=== PATIENT | male | born 1950 | race Caucasian/White ===

== ENCOUNTER → 2024-03-03 09:09 | Outpatient (REF) | payer MEDICARE, OTHER, SELFPAY | LOC: HWRCS 09:09 | PROVIDERS: ATTENDING PHYSICIAN Internal Medicine Cardiovascular Disease; FAMILY PHYSICIAN Family Medicine | DX: Z95.1 Presence of aortocoronary bypass graft (principal); Z01.818 Encounter for other preprocedural examination; I25.10 Atherosclerotic heart disease of native coronary artery without angina pectoris; I10 Essential (primary) hypertension; Z86.73 Personal history of transient ischemic attack (TIA), and cerebral infarction without residual deficits; I77.9 Disorder of arteries and arterioles, unspecified; E78.2 Mixed hyperlipidemia | CPT/HCPCS: 93306 ==

== ENCOUNTER → 2024-03-30 11:07 | Outpatient (REF) | payer MEDICARE, OTHER, SELFPAY | LOC: RAD 11:07 | PROVIDERS: ATTENDING PHYSICIAN Physician Assistant; FAMILY PHYSICIAN Family Medicine | DX: I65.23 Occlusion and stenosis of bilateral carotid arteries (principal) | CPT/HCPCS: 93880 ==

== ENCOUNTER 2024-09-01 13:41 | Emergency (ER) | payer MEDICARE, OTHER, SELFPAY ==
[2024-09-01 13:46] LABS: Glucose - Point of Care 117 mg/dl (70-99)
[2024-09-01 13:48] VITALS: BP 119/76
[2024-09-01 14:04] LABS: % Basophils 0.7 % (0-2); % Eosinophils 0.6 % (0-6); % Immature Granulocytes 0.3 % (0-0.5); % Lymphocytes 24.1 % (20.5-51.1); % Monocytes 7.7 % (1.7-9.3); % Neutrophils 66.6 % (42.2-75.2); Absolute Basophils 0.1 10^3/uL (0-0.2); Absolute Lymphocytes 1.6 10^3/uL (1.2-3.4); Absolute Monocytes 0.5 10^3/uL (0.1-0.6); Absolute Neutrophils 4.5 10^3/uL (1.4-6.5); Hematocrit 37.6 % (39.0-52.0); Hemoglobin 13.3 g/dL (13.0-18.0); Mean Corp Hgb Conc. 35.4 g/dL (33.0-37.0); Mean Corpuscular Volume 93.3 fL (80.0-94.0); Mean Platelet Volume 9.4 fL (7.4-10.4); Nucleated Red Blood Cells % 0 % (-); Platelet Count 251 10^3/uL (130-400); Red Blood Cell Count 4.03 10^6/uL (4.70-6.10); White Blood Cell Count 6.8 10^3/uL (4.8-10.8)
[2024-09-01 15:19] LABS: ALT (SGPT) 15 U/L (0-50); AST (SGOT) 27 U/L (17-59); Albumin 4.1 g/dl (3.5-5.0); Alkaline Phosphatase 82 U/L (38-126); Blood Urea Nitrogen 18 mg/dl (9-20); Calcium 9.4 mg/dl (8.4-10.2); Carbon Dioxide 27 mmol/L (22-30); Chloride 103 mmol/L (98-107); Glucose 117 mg/dl (70-99); Potassium 4.4 mmol/L (3.5-5.1); Sodium 142 mmol/L (135-145); Total Bilirubin 0.7 mg/dl (0.2-1.3); Total Protein 7.1 g/dl (6.3-8.2); eGFR > 60.00
[2024-09-01 16:21] VITALS: BP 115/85
[2024-09-01 16:31] VITALS: BP 115/85
--- NOTE | 2024-09-01 16:47 | ED.CVA ---
History of Present Illness
General
Chief Complaint: CVA/TIA Symptoms
Source: patient and family
Time Seen by Provider: 09/01/24 16:29
Onset of Stroke Symptoms
Onset of symptoms known: Yes
Date of onset of symptoms: 09/01/24
Time of onset of symptoms: 12:00
History of Present Illness
History of Present Illness:
74yoM with a history of multiple prior CVAs, coronary artery disease s/p CABG, hypertension, and hyperlipidemia presenting with his gadpzn-pe-krm for evaluation of transient speech disturbance. Patient was at work today when he started to feel
'goofy' around noon and felt like his thought process was off. His nyoqhb-vs-eqk came to visit him around 12:30pm today and she states he looked pale, wobbly, and had slurred speech. They went to lunch but this did not go well and he did not eat
much. Symptoms completely resolved by 1:30pm today. Patient is asymptomatic currently. He did not eat anything today prior to his symptoms starting. He denies any headache, visual changes, dizziness, diaphoresis, vomiting, chest pain. He is
currently taking aspirin and Plavix. Of note, he had similar symptoms about 5-6 months ago which also resolved spontaneously.
Past History
Past History
ED Past Medical History: CAD, CVA (Right lentiform infarct November 2018), GERD, HTN, Hypercholesterolemia, Psychiatric (Anxiety/depression) and Other (Neil's esophagus, peptic ulcer disease, chronic back pain)
ED Past Surgical History: Cardiac (CABG 2016, Linq recorder July 01, 2021) and Orthopedic
Social History
Tobacco: Former smoker
Alcohol: None
Drug: None
Personal:
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
Family History
Family History: Other (Noncontributory)
Phy Exam
General Physical Exam
General Presentation: well appearing and no apparent distress
General age: appears stated age
General Skin: warm and dry
General Habitus: normal
General Mental: alert
ENT Exam
ENT Exam: normocephalic
Cardiovascular Exam
Cardiovascular Exam: regular rate/rhythm
Pulmonary Exam
Pulmonary Exam: no respiratory distress
Neurological Exam
Neurological Exam: alert, CN II-XII intact, no motor deficits, no sensory deficits, speech normal and other (CN 2-12 intact. PERRL. EOMs intact. Visual llanes normal. Negative drift x4. 5/5 strength and sensation intact in all extremities. Normal
finger to nose and heel to sprague bilaterally. Gait normal. )
NIH Stroke Score
Level of Consciousness: 0 - Alert
LOC questions: 0-Answers both correctly
LOC Commands: 0-Performs both correctly
Best Gaze: 0-Normal
Visual Llanes: 0=Normal, no visual loss
Facial palsy: 0=Normal, symmetrical
Motor - Right Arm: 0=No drift 10 seconds
Motor - Left Arm: 0=No drift 10 seconds
Motor - Right Le-No drift 5 seconds
Motor - Left Le-No drift 5 seconds
Limb Ataxia: 0-Absent
Sensation: 0-Normal
Best Language: 0-No aphasia
Dysarthria: 0-Normal
Extinction and Inattention: 0-No abnormality
Total Score:: 0
Skin Exam
Skin Exam: normal color and warm/dry
Psychiatric Exam
Psychiatric Exam: normal mood/affect
Course
Orders/Labs/Results
Orders:
Orders
09/01/24 13:48
CT Head W/o Iv Contrast Urgent
Comment: hx of cva
Reason For Exam: slight slurred speech
09/01/24 13:56
Electrocardiogram (*1) Urgent
Reason for Study: TIA/Stroke
EKG- Treatment ONCE
09/01/24 13:59
Complete Blood Count/With Diff Urgent
Comprehensive Metabolic Panel Urgent
09/01/24 16:48
0.9% Sodium Chloride 500 ml [Nss] 500 ml IV BOLUS
09/01/24 16:54
0.9% Sodium Chloride 500 ml [Nss] 500 ml IV BOLUS
Abnormal Lab Results
09/01/24 09/01/24
13:45 13:59
RBC 4.03 L 10^6/uL
(4.70-6.10)
Hct 37.6 L %
(39.0-52.0)
MCH 33.0 H pg
(27.0-31.0)
Glucose 117 H mg/dl
(70-99)
POC Glucose 117 H mg/dl
(70-99)
09/01/24 13:59
09/01/24 13:59
Vital Signs
Initial and Last Documented VS:
Initial Vital Signs
Temp Pulse Resp Pulse Ox
98.0 F 79 18 98
09/01/24 13:44 09/01/24 13:44 09/01/24 13:44 09/01/24 13:44
Last Documented Vital Signs
Temp Pulse Resp BP Pulse Ox
98.0 F 88 20 148/84 98
09/01/24 13:44 09/01/24 17:45 09/01/24 17:45 09/01/24 17:00 09/01/24 17:45
MDM/Problems Addressed
Differential Diagnosis Includes:
74yoM here with transient speech disturbance. Hx of multiple strokes. Had an episode of slurred speech lasting about 1 hour this afternoon. Family member stated he appeared pale and wobbly. Now asymptomatic. Patient currently on aspirin and Plavix.
Vital signs are stable. He is well-appearing in no acute distress. Neuro exam is nonfocal. NIHSS 0. Differential diagnosis includes but is not limited to: TIA, hypoglycemia, dehydration, arrhythmia, doubt CVA as symptoms have resolved
Labs, EKG, and CT head obtained in triage. CT head is negative for acute findings. Old infarcts are seen. EKG shows NSR without ischemic changes. Will discuss with neurology.
*EKG
Interpreted by ED Provider?: Yes
EKG Intrepretation Date: 09/01/24
Heart Rate: 78
Rate: normal
Rhythm: sinus
[place]: normal axis
Interval: normal interval
QRS Pattern: normal QRS
Ischemia: no ischemia
*Critical Care Note
Total Time (30-74mins, 75-104mins- exclusive of procedures): Not Applicable
Update Note
Update Note:
Discussed case with neurologist, Dr. Hernandez. Neurology is recommending admission for suspected cardiac arrhythmia. Discussed recommendations with patient. 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
appt tomorrow morning with a specialist. He is requesting to leave AMA. He understands risks of leaving AMA including cardiac event, CVA, permanent disability, . AMA paperwork signed. He was advised to f/u closely with his PCP and neurology.
Strict ED return precautions discussed. He left in stable condition with his [id number]-uq-xbg.
ED Attending Note
-
Portions of this chart may have been created with voice recognition software.� Occasional wrong word or��sound alike� substitutions may have occurred due to the inherent limitations of voice recognition software.
Discharge Plan
Departure
Patient Disposition: Against Medical Advice
Date of Disposition: 09/01/24
Time of Disposition: 17:34
Discharge Problem:
Transient speech disturbance
Instructions: Dysarthria
Prescriptions:
No Action
clopidogrel [Plavix] 75 MG tablet
75 mg PO DAILY
sertraline 25 mg Tablet
25 mg PO DAILY
lisinopril 40 mg Tablet
40 mg PO HS
ezetimibe [Zetia] 10 mg Tablet
10 mg PO DAILY
hydrochlorothiazide 25 mg Tablet
25 mg PO DAILY
Theragen Tablet
1 tab PO DAILY
nifedipine 30 mg tablet extended release
30 mg PO HS
aspirin 81 mg Tablet,Delayed Release (Dr/Ec)
81 mg PO DAILY
dandelion root 525 mg Capsule
525 mg PO DAILYPRN PRN (Reason: supplement)
Tamar Church
1 tab PO DAILYPRN PRN (Reason: supplement)
Referrals:
Rachel Hernandez MD [Active] -
Owen Portillo DO [Family Provider] -
Activity Restrictions/Additional Instructions:
Please call tomorrow morning to schedule a follow-up with your family doctor and neurology as soon as possible.
Return to the ER immediately with any new or worsening symptoms.
Interventions
Interventions:
*Risk Screen - Suicide Last Done: 09/01/24 16:50
*General Assessment Last Done: 09/01/24 16:50
*Neglect/Abuse Screening Last Done: 09/01/24 16:50
ED- Fall Risk Assessment Last Done: 09/01/24 18:07
*ED COVID-19 Vaccine History Last Done: 09/01/24 16:50
*Nursing Disposition Last Done: 09/01/24 18:07
ED- Neurological Assessment Last Done: 09/01/24 16:39
Discharge Date and Time
Discharge Date/Time: 09/01/24 18:08
Print Language: SYRIAC
[2024-09-01] MEDS: NSS 500 IV (16:49)
[2024-09-01 17:00] VITALS: BP 148/84
== END 2024-09-01 18:08 | disposition left against medical advice (07) ==
LOC: EMR 13:41
PROVIDERS: EMERGENCY PHYSICIAN Emergency Medicine; FAMILY PHYSICIAN Family Medicine; OTHER PHYSICIAN Psychiatry & Neurology Neurology; OTHER PHYSICIAN Registered Nurse
DX: R47.9 Unspecified speech disturbances (principal); R20.0 Anesthesia of skin; Z53.29 Procedure and treatment not carried out because of patient's decision for other reasons; I25.10 Atherosclerotic heart disease of native coronary artery without angina pectoris; K21.9 Gastro-esophageal reflux disease without esophagitis; I10 Essential (primary) hypertension; E78.00 Pure hypercholesterolemia, unspecified; F32.A Depression, unspecified; F41.9 Anxiety disorder, unspecified; G89.29 Other chronic pain; M54.9 Dorsalgia, unspecified; K22.70 Barrett's esophagus without dysplasia; Z79.02 Long term (current) use of antithrombotics/antiplatelets; Z79.82 Long term (current) use of aspirin; Z86.73 Personal history of transient ischemic attack (TIA), and cerebral infarction without residual deficits; Z87.11 Personal history of peptic ulcer disease; Z87.891 Personal history of nicotine dependence; Z95.1 Presence of aortocoronary bypass graft; Z88.0 Allergy status to penicillin; Z88.8 Allergy status to other drugs, medicaments and biological substances
CPT/HCPCS: 99284; 96360; 70450; 80053; 82962; 85025; 93005

== ENCOUNTER 2024-09-02 17:04 | Inpatient (IN) | payer MEDICARE, OTHER, SELFPAY ==
[2024-09-02 15:40] VITALS: BP 164/98
--- NOTE | 2024-09-02 15:43 | ED.GENMED ---
Addendum entered and electronically signed by Moshe Mcclellan MD 09/02/24 16:56:
Received critical for patient's CTA head concerning for left carotid artery dissection with no stenosis. I did update neurology and vascular surgery as well as the admitting team. Vascular surgery will evaluate and determine further
recommendations.
Original Note:
History of Present Illness
General
Chief Complaint: CVA/TIA Symptoms
Time Seen by Provider: 09/02/24 15:43
History of Present Illness
History of Present Illness:
Patient is a 74-year-old male with history of prior CVAs with no deficits, CAD status post CABG, hypertension, hyperlipidemia presenting to the emergency department as a prehospital stroke alert. Last known normal was 2 PM. He developed
right-sided arm numbness tingling as well as right-sided face tingling and as well as dysarthria. He states that some of the symptoms have improved. Per chart review it appears that the same thing happened yesterday. However it appears that he
left AGAINST MEDICAL ADVICE. Per medics he did not have any weakness. His vitals were stable. His blood sugar was normal.
Past History
Past History
ED Past Medical History: CAD, CVA (Right lentiform infarct November 2018), GERD, HTN, Hypercholesterolemia, Psychiatric (Anxiety/depression) and Other (Neil's esophagus, peptic ulcer disease, chronic back pain)
ED Past Surgical History: Cardiac (CABG 2016, Linq recorder July 01, 2021) and Orthopedic
Social History
Tobacco: Former smoker
Alcohol: None
Drug: None
Personal:
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
Family History
Family History: Other (Noncontributory)
Phy Exam
Physical Exam
Physical Exam:
GENERAL: in no acute distress
HEENT: normocephalic, extraocular movements intact, moist oral mucosa
NECK: normal inspection
RESPIRATORY: no respiratory distress, clear to auscultation bilaterally
CARDIOVASCULAR: regular rate and rhythm
ABDOMEN/: soft, non-distended, non-tender to palpation, no rebound or guarding
EXTREMITIES: non-tender, no edema/swelling
NEUROLOGIC: alert and oriented x 3, cranial nerves II-XII intact except for mild dysarthria, right upper extremity strength 5/5, left upper extremity strength 5/5, right lower extremity strength 5/5, left lower extremity strength 5/5, decree
sensation to the right upper extremity right face, normal gcvtyb-yp-[id number] and xbrb-tc-wokw, gait not tested formally
SKIN: warm
Course
Orders/Labs/Results
Orders:
Orders
09/02/24 15:40
CT HEAD STROKE ALERT W/o Cont Urgent
Comment:
Reason For Exam: Slurred speach
09/02/24 15:42
CT HEAD/NECK ANG STROKE ALERT Urgent
Comment:
Reason For Exam: slurred speach
09/02/24 15:46
Electrocardiogram (*1) Urgent
Reason for Study: TIA/Stroke
EKG- Treatment ONCE
09/02/24 15:59
Complete Blood Count/With Diff Urgent
Comprehensive Metabolic Panel Urgent
Magnesium Urgent
Troponin I Urgent
09/02/24 16:08
Aspirin Chewable [Low Strength Aspirin] 81 mg PO NOW STA
Clopidogrel Bisulfate [Plavix] 300 mg PO NOW STA
09/02/24 16:10
0.9% Sodium Chloride 1000 ml [Nss] 1,000 ml IV BOLUS
Abnormal Lab Results
09/02/24
15:59
RBC 3.56 L 10^6/uL
(4.70-6.10)
Hgb 11.8 L g/dL
(13.0-18.0)
Hct 33.5 L %
(39.0-52.0)
MCV 94.1 H fL
(80.0-94.0)
MCH 33.1 H pg
(27.0-31.0)
Absolute Monos (auto) 0.7 H 10^3/uL
(0.1-0.6)
Monocytes % 11.1 H %
(1.7-9.3)
09/02/24 15:59
Vital Signs
Initial and Last Documented VS:
Initial Vital Signs
Pulse Resp BP Pulse Ox
80 18 117/70 98
09/02/24 15:49 09/02/24 15:49 09/02/24 15:49 09/02/24 15:49
Last Documented Vital Signs
Pulse Resp BP Pulse Ox
80 18 117/70 98
09/02/24 15:49 09/02/24 15:49 09/02/24 15:49 09/02/24 15:49
MDM/Problems Addressed
Differential Diagnosis Includes:
Patient is a 74-year-old male with history of prior CVA, CAD status post CABG presenting to the emergency department as a prehospital stroke alert. Patient taken immediately to CT scanner for CT scan of the head and CTA head and neck. P per chart
review it appears that yesterday there was concern for possible cardiac arrhythmia so we will complete workup with blood work EKG troponin. Patient will benefit from admission.
On evaluation after CT scan it appears that patient's deficits have resolved. He does have some intermittent left-sided difficulty with [id number] who does have a prior cerebellar stroke. Neurology at bedside. Given that his symptoms have
resolved we will hold TNK. Will give 81 mg of aspirin and 300 of Plavix. Will also give fluids. Neurology is recommending vascular consult given patient's carotid artery stenosis.
CT scan of the head per my interpretation with no acute infarct. CTA head and neck pending. Discussed with hospitalist who accepted patient for admission with blood work pending
*Critical Care Note
Total Time (30-74mins, 75-104mins- exclusive of procedures): Not Applicable
ED Attending Note
-
Portions of this chart may have been created with voice recognition software.� Occasional wrong word or��sound alike� substitutions may have occurred due to the inherent limitations of voice recognition software.
Discharge Plan
Departure
Patient Disposition: Admit
Date of Disposition: 09/02/24
Time of Disposition: 16:13
Presentation/result/management discussed w/ accepting MD/DO: Hospitalist
Discharge Problem:
Brain TIA
Prescriptions:
No Action
clopidogrel [Plavix] 75 MG tablet
75 mg PO DAILY
sertraline 25 mg Tablet
25 mg PO DAILY
lisinopril 40 mg Tablet
40 mg PO HS
ezetimibe [Zetia] 10 mg Tablet
10 mg PO DAILY
hydrochlorothiazide 25 mg Tablet
25 mg PO DAILY
Theragen Tablet
1 tab PO DAILY
nifedipine 30 mg tablet extended release
30 mg PO HS
aspirin 81 mg Tablet,Delayed Release (Dr/Ec)
81 mg PO DAILY
dandelion root 525 mg Capsule
525 mg PO DAILYPRN PRN (Reason: supplement)
Lions Ranjit
1 tab PO DAILYPRN PRN (Reason: supplement)
Discharge Date and Time
Print Language: LEBANESE
[2024-09-02 15:45] LABS: Glucose - Point of Care 98 mg/dl (70-99)
[2024-09-02 15:49] VITALS: BP 117/70
--- NOTE | 2024-09-02 15:52 | CON.NEURO ---
Consultation
Order
Date of Consultation: 09/02/24
Requesting Provider: Eleuterio Mesa M.D.
Reason for Consult: stroke alert
prehospital notification: called in at 15:41
HPI: This is a 74 year old LH man who presented to [facility] on 09/02/2024 with transient sensory symptoms and dysarthria. According to the patient he developed acute right face arm and leg paresthesias along with dysarthria that
started around 2:00 PM today and resolved shortly after CT head was completed.
Mr. Jones had similar symptoms yesterday and was seen in the emergency room. Unfortunately he had to leave yesterday due to family circumstances.
ER VS: 117/70, 80, afebrile.
EKG: NSR, QTc Int : [address] head-chronic infarcts in bilateral cerebellar hemispheres and basal ganglia, mild atrophy.
CD(03/30/2024)-50-69% stenosis of the left internal carotid artery
TTE(03/03/2024)-Interatrial septum is intact with no evidence of shunting by color flow Doppler.
PMH: L ICA stenosis, embolic strokes including left cerebellar(2021), CAD, HTN, DLP, CAITLIN, Neil's Esophagus
PSH: right CEA, LINQ( 07/01/2021 ), CABG, repair of incarcerated left inguinal hernia; l4-l5 laminectomy
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
All:Statins, Penicillins
ROS: Positive for weight loss
Neurological: Positive for transient right hemisensory deficits and dysarthria
General: Well developed. In no acute distress.
Cardio: Regular rate and rhythm without murmur. Extremities are without cyanosis or edema.
Neuro:
Mental Status: Alert, oriented to person, place, and date. Normal attention and recall. Good fund of knowledge. Follows complex requests across the midline. Comprehension, naming, and repetition intact.
Cranial Nerves: . Pupils are equally round and reactive to light. EOMs full. Visual hernandez full to confrontation. No ptosis. No nystagmus. V1-V3 intact to light touch and pinprick bilaterally, symmetric. Face symmetric. Normal hearing AU.
The palate elevated well. SCMs and traps 5/5. Tongue midline. No dysarthria.
Motor: Normal bulk and tone. No pronator or arm drift. Strength 5/5 throughout. No clonus.
Sensory: normal LT, no extinction to DSS
Coordination: Intermittent left dysmetria(prior left cerebellar infarct)
Gait: deferred
Bl pes cavus, hammer toes
Assessment and Plan:
I. Symptomatic left ICA stenosis
II. TIA, not a candidate for IV thrombolysis due to symptoms resolution.
III. History of chronic bihemispheric embolic infarcts.
-Telemetry monitoring.
-Aspiration precautions.
-Start IV fluids given known left ICA stenosis
-Plavix load, continue aspirin 81 mg once a
-LDL, hemoglobin A1c.
-Continue Repatha (statin intolerant)
-Brain MRI without
-Please follow up CTA report
-Vascular surgery consult
-DVT prophylaxis.
I personally reviewed all radiology and labs along with past medical records pertinent to current medical problems. Total time spent in patient care is 60 minutes.
Thank you for allowing us to participate in the care of this patient. We will continue to follow. Please do not hesitate to contact us with any questions or concerns.
Subjective/Objective
Subjective Data
Date of Service: September 02, 2024
Objective Data
Vital Signs
Pulse Resp BP Pulse Ox
80 18 117/70 98
09/02/24 15:49 09/02/24 15:49 09/02/24 15:49 09/02/24 15:49
Patient Allergies
Penicillins Allergy (Verified 09/02/24 15:45)
Swelling, hives, rash
atorvastatin [From Lipitor] Adverse Reaction (Verified 09/02/24 15:45)
Myalgias
rosuvastatin [From Crestor] Adverse Reaction (Verified 09/02/24 15:45)
pain everywhere
Medications
-
Home Medications
�Medication �Instructions �Recorded
clopidogrel 75 mg tablet (Plavix) 75 mg PO DAILY Blood clot 05/09/21
prevention/tx
ezetimibe 10 mg tablet (Zetia) 10 mg PO DAILY 01/07/23
hydrochlorothiazide 25 mg tablet 25 mg PO DAILY 01/07/23
lisinopril 40 mg tablet 40 mg PO HS 01/07/23
sertraline 25 mg tablet 25 mg PO DAILY 01/07/23
Lions Ranjit 1 tab PO DAILYPRN PRN supplement 09/01/24
aspirin 81 mg tablet,delayed 81 mg PO DAILY 09/01/24
release
dandelion root 525 mg capsule 525 mg PO DAILYPRN PRN supplement 09/01/24
nifedipine 30 mg tablet,extended 30 mg PO HS 09/01/24
release
therapeutic multivitamin 1 tab PO DAILY 09/01/24
Vital Signs and Labs
-
Vital Signs and Labs:
Vital Signs
Pulse Resp BP Pulse Ox
68 20 132/70 99
09/02/24 16:20 09/02/24 16:15 09/02/24 16:15 09/02/24 16:15
Lab Results
09/02/24 15:59
Home Medications
-
Home Medications
clopidogrel 75 mg tablet (Plavix) 75 mg PO DAILY Blood clot prevention/tx 05/09/21
ezetimibe 10 mg tablet (Zetia) 10 mg PO DAILY 01/07/23
hydrochlorothiazide 25 mg tablet 25 mg PO DAILY 01/07/23
lisinopril 40 mg tablet 40 mg PO HS 01/07/23
sertraline 25 mg tablet 25 mg PO DAILY 01/07/23
Lions Ranjit 1 tab PO DAILYPRN PRN supplement 09/01/24
aspirin 81 mg tablet,delayed release 81 mg PO DAILY 09/01/24
dandelion root 525 mg capsule 525 mg PO DAILYPRN PRN supplement 09/01/24
nifedipine 30 mg tablet,extended release 30 mg PO HS 09/01/24
therapeutic multivitamin 1 tab PO DAILY 09/01/24
[2024-09-02 15:58] VITALS: BMI 20.5
[2024-09-02 16:10] VITALS: BP 122/63
[2024-09-02 16:12] LABS: % Basophils 0.8 % (0-2); % Eosinophils 0.8 % (0-6); % Immature Granulocytes 0.3 % (0-0.5); % Monocytes 11.1 % (1.7-9.3); Absolute Basophils 0.1 10^3/uL (0-0.2); Absolute Eosinophils 0.1 10^3/uL (0-0.7); Absolute Lymphocytes 1.5 10^3/uL (1.2-3.4); Absolute Monocytes 0.7 10^3/uL (0.1-0.6); Absolute Neutrophils 3.8 10^3/uL (1.4-6.5); Hematocrit 33.5 % (39.0-52.0); Hemoglobin 11.8 g/dL (13.0-18.0); Mean Corp Hgb Conc. 35.2 g/dL (33.0-37.0); Mean Corpuscular Hgb 33.1 pg (27.0-31.0); Mean Corpuscular Volume 94.1 fL (80.0-94.0); Mean Platelet Volume 9.6 fL (7.4-10.4); Nucleated Red Blood Cells % 0 % (-); Platelet Count 225 10^3/uL (130-400); Red Blood Cell Count 3.56 10^6/uL (4.70-6.10); Red Cell Dist. Width 13.2 % (11.5-14.5); White Blood Cell Count 6.2 10^3/uL (4.8-10.8)
[2024-09-02] MEDS: PLAVIX 300 MG PO (16:14)
[2024-09-02 16:15] VITALS: BP 132/70
[2024-09-02] MEDS: NSS 1000 IV ×2 (16:15→20:10)
--- NOTE | 2024-09-02 16:15 | HPS.HSE ---
Family Physician
-
Family Physician:
Chief Complaint
-
right sided facial numbness, tingling,
mumbles speech
History of Present Illness
74 year old with CVA, CAD, HTN, HLD presented to us with right facial numbness and right arm numbness this afternoon which lasted for one hour. his speech was mumbled. it lasted for one hour. he was here with the same symptoms yesterday but left
the hospital. denied VARGAS, dizzy or syncopal episode. denied fever, chills, chest pain,sob. denied abdominal pain,n,v,d. denied dysuria or hematuria.
admitting for further management. received asa and Plavix in ER.
Medical History
Past Medical History
Past Medical History: Reports Other
Additional Past Medical History:
GERD
dyslipidemia
CAD
HTN
carotid stenosis bilateral
anxiety
depression
PUD
stroke
hernia
Past Surgical History: Reports Other
Additional Past Surgical History:
CABG
right CEA
left inguinal hernia repair
Social History
Tobacco: Non-smoker
Alcohol: None
Drug: None
Personal:
Living: With Family
Family History
Family History: Not pertinent
Allergies / Home Medications
Allergies reflects when Allergies were last updated in Subtext.
Home Medications with original date entered in Subtext
Allergy/Medication List:
Allergies
Allergy/AdvReac Type Severity Reaction Status Date / Time
Penicillins Allergy Swelling, Verified 09/02/24 15:45
hives, rash
atorvastatin [From Lipitor] AdvReac Myalgias Verified 09/02/24 15:45
rosuvastatin [From Crestor] AdvReac pain Verified 09/02/24 15:45
everywhere
Home Medications
clopidogrel 75 mg tablet (Plavix) 75 mg PO DAILY Blood clot prevention/tx 07/08/21
ezetimibe 10 mg tablet (Zetia) 10 mg PO DAILY 01/07/23
hydrochlorothiazide 25 mg tablet 25 mg PO DAILY 01/07/23
lisinopril 40 mg tablet 40 mg PO HS 01/07/23
sertraline 25 mg tablet 25 mg PO DAILY 01/07/23
Lions Ranjit 1 tab PO DAILYPRN PRN supplement 09/01/24
aspirin 81 mg tablet,delayed release 81 mg PO DAILY 09/01/24
dandelion root 525 mg capsule 525 mg PO DAILYPRN PRN supplement 09/01/24
nifedipine 30 mg tablet,extended release 30 mg PO HS 09/01/24
therapeutic multivitamin 1 tab PO DAILY 09/01/24
Review of Systems
-
Constitutional: Reports No Symptoms
EENT: Reports No Symptoms
Respiratory: Reports No Symptoms
Cardiac: Reports No Symptoms
Abdomen/GI: Reports No Symptoms
: Reports No Symptoms
Musculoskeletal: Reports No Symptoms
Skin: Reports No Symptoms
Neurological: Reports Numbness and Other (right facial numbness, tingling, right arm numbness. mumbled speech)
Endocrine: Reports No Symptoms
Hematologic/Lymphatic: Reports No Symptoms
Psych: Reports No Symptoms
Physical Exam
Vital Signs
Vital Signs
Pulse Resp BP Pulse Ox
80 18 117/70 98
09/02/24 15:49 09/02/24 15:49 09/02/24 15:49 09/02/24 15:49
Physical Exam
General: Well Developed, Well Nourished and No Apparent Distress
HEENT: NormoCephalic, Moist mucous membranes and Atraumatic
Respiratory: Clear
Cardiac: S1/S2 and Regular Rhythm; No Murmur or Rub
GI: Soft, Non Tender, Non Distended and Normal Bowel Sounds; No Organomegaly
Rectal: Deferred by Provider
Musculoskeletal: No Clubbing, No Cyanosis and No Edema
Skin: No Rash
Neuro: AO x 3 and Nonfocal/grossly intact
Psych: Calm
Laboratory Results
-
09/02/24 15:59
Data Reviewed
-
CT Scan: Report Reviewed by me
Lab Data: Labs Reviewed by me
Impression/Plan
-
#right sided weakness/dysarthria likely TIA
# focal high-grade stenosis/near complete occlusion of the distal left M1 segment with immediate reconstitution
-as and Plavix continued
-head CT with No acute intracranial abnormality.Unchanged sequelae of moderate small vessel ischemic disease with multifocal lacunar infarctions.
-head neck CTA with here is focal high-grade stenosis/near complete occlusion of the distal left M1 segment with immediate reconstitution. Hypoplastic right A1 segment, normal variant. There is atherosclerotic calcifications of the bilateral
petrous, cavernous and paraclinoid segments of the ICAs with resultant multifocal moderate stenosis.CTA Neck: There is mixed density atherosclerotic plaque of the left carotid bifurcation with associated dissection extending into the proximal left
ICA. Atherosclerotic calcifications of the V4 segment of the left vertebral artery with associated severe stenosis, similar to prior. 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
-obtain MRI
-zetia
-obtain lipid profile, a1c
-neuro consulted
-vascular consulted
#acute kidney injury likely dehydration
-normal saline continued
-BMP in am
#Hyperlipidemia
-zetia continued
#essential htn
-hold hctz,lisinopril due to CUONG
-nifedipine continued with hold parameter
#hxt of right CEA
#Cad
-CABG -x 2 2016
-cont ASA 81 mg
#Dvt proph
- scd's
[2024-09-02 16:24] LABS: ALT (SGPT) 14 U/L (0-50); AST (SGOT) 21 U/L (17-59); Albumin 3.4 g/dl (3.5-5.0); Alkaline Phosphatase 74 U/L (38-126); Blood Urea Nitrogen 23 mg/dl (9-20); Calcium 8.9 mg/dl (8.4-10.2); Carbon Dioxide 29 mmol/L (22-30); Chloride 102 mmol/L (98-107); Estimated Creatinine Clearance 41 ml/min; Glucose 95 mg/dl (70-99); Magnesium 1.8 mg/dl (1.6-2.3); Potassium 4.6 mmol/L (3.5-5.1); Sodium 138 mmol/L (135-145); Total Bilirubin 0.6 mg/dl (0.2-1.3); Total Protein 6.1 g/dl (6.3-8.2); eGFR 47.95
[2024-09-02 16:34] LABS: Troponin I < 0.012 ng/ml
--- NOTE | 2024-09-02 16:40 | W.PN.UPDATE ---
Update Note
Progress Note Update
This is an addendum to the H&P written by Pricilla Almodovar on 09/02/2024. Patient seen and examined by me with WAREHOUSING TECHNICIAN.
74-year-old male past medical history of CVA, CAD status post CABG, bilateral carotid artery stenosis status post CEA on the right side in 2020, hypertension, hyperlipidemia, GERD, anxiety/depression, Neil's esophagus, peptic ulcer disease,
chronic back pain, presenting with right-sided arm numbness and tingling, face tingling and difficulty speaking lasting 1 hour and since resolved.
Came to the emergency room yesterday for difficulty speaking and confusion but left AMA.
No neurological deficits currently.
CT head shows no acute abnormality. There is on change sequelae of moderate small vessel ischemic disease with multifocal lacunar infarcts. CTA head and neck shows focal high-grade stenosis/near clinically of the distal left M1 segment with
immediate reconstitution. There is also mixed density atherosclerotic plaque at the left carotid bifurcation with associated dissection extending into the proximal left ICA.
CT findings likely responsible for recurrent TIA/CVA. Check MRI brain, A1c and lipid panel. Check aspirin and Plavix verify assay. Neurology following. Vascular surgery consulted.
Patient has CUONG which is worsened from yesterday which could worsen further from IV contrast given today. IV fluids. Hold nephrotoxic medications.
--- NOTE | 2024-09-02 17:14 | CON.VAS ---
Addendum entered and electronically signed by Brad Love III, MD 09/02/24 17:49:
This patient was seen and examined with TATIANNA Rinaldi. I agree with the history and physical exam as well as the assessment and plan. I have the following additions:
Patient well known to [facility]
Previous R CEA
Known left carotid stenosis, followed in the office.
Presents with dysarthria and right hand numbness
CTA shows dissection of Left ICA (? chronic based on review of CTA 2020) with significant irregularity of ICA on centerline reconstructions (see below).
R CEA patent.
Admit for stroke workup
MRI pending
Cardiology consult
TTE
Will discuss surgical plan with neurology and cardiology. May benefit from carotid intervention on this admission depending on outcome of workup
Continue DAPT
Signed:
Brad Love III, MD
[facility] Vascular Surgery
[phone] (cell)
Original Note:
Medical History
-
Chief Complaint: Speech difficulties, right face numbness, right handed weakness
History of Present Illness:
74-year-old male with past medical history of right CE[place] [address] Cochran, multiple CVAs, CAD, hypertension, hyperlipidemia presents to the ER today for right facial numbness, right arm weakness, speech difficulties for the last hour. Patient
presented to ER last evening with similar symptoms but left AMA. Patient is known to Dr. Cochran, last seen in our office March 2024, was asymptomatic at that time. He is status post right CEA in [address] Cochran.
CTA Head: There is focal high-grade stenosis/near complete occlusion of the distal left M1 segment with immediate reconstitution. Hypoplastic right A1 segment, normal variant. There is atherosclerotic calcifications of the bilateral petrous,
cavernous and paraclinoid segments of the ICAs with resultant multifocal moderate stenosis.
CTA Neck: There is mixed density atherosclerotic plaque of the left carotid bifurcation with associated dissection extending into the proximal left ICA. Atherosclerotic calcifications of the V4 segment of the left vertebral artery with associated
severe stenosis, similar to prior. 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
Vascular history:
�05/09/21- R CEA with bovine pericardial patch angioplasty- critical R carotid artery stenosis, likely asymptomatic. Postoperatively had developed left cerebellar infarct, as well as multiple small/punctate bilateral supratentorial infarcts. [place] to
be likely cardioembolic. Surgical site was widely patent on CT scan imaging. Had been transferred downtown to [place] for further evaluation/work-up.
Vascular consult for CT findings. Patient seen at bedside in the ER this afternoon with Dr. Love. Patient feels he is back to his baseline at this time.
Brain MRI pending
Past Medical History
Past Medical History: Other (GERD, dyslipidemia, CAD, HTN, carotid stenosis bilateral, anxiety, depression, PUD, stroke, hernia)
Past Surgical History: Other (CABG, right CVA, left inguinal hernia repair)
Social History
Tobacco: Non-Smoker
Alcohol: None
Drug: None
Personal:
Living: With Family
Allergies / Home Medications
Allergy/AdvReac Type Severity Reaction Status Date / Time
Penicillins Allergy Swelling, Verified 09/02/24 15:45
hives, rash
atorvastatin [From Lipitor] AdvReac Myalgias Verified 09/02/24 15:45
rosuvastatin [From Crestor] AdvReac pain Verified 09/02/24 15:45
everywhere
�Medication �Instructions �Recorded �Confirmed �Type
clopidogrel 75 mg tablet (Plavix) 75 mg PO DAILY Blood clot 05/09/21 09/02/24 History
prevention/tx
ezetimibe 10 mg tablet (Zetia) 10 mg PO DAILY 01/07/23 09/02/24 History
hydrochlorothiazide 25 mg tablet 25 mg PO DAILY 01/07/23 09/02/24 History
lisinopril 40 mg tablet 40 mg PO HS 01/07/23 09/02/24 History
sertraline 25 mg tablet 25 mg PO DAILY 01/07/23 09/02/24 History
Lions Ranjit 1 tab PO DAILYPRN PRN supplement 09/01/24 09/02/24 History
aspirin 81 mg tablet,delayed 81 mg PO DAILY 09/01/24 09/02/24 History
release
dandelion root 525 mg capsule 525 mg PO DAILYPRN PRN supplement 09/01/24 09/02/24 History
nifedipine 30 mg tablet,extended 30 mg PO HS 09/01/24 09/02/24 History
release
therapeutic multivitamin 1 tab PO DAILY 09/01/24 09/02/24 History
Review of Systems
-
History Source: Patient and Family
All other systems: Negative unless noted
Constitutional: Reports No Symptoms
EENT: Reports No Symptoms
Respiratory: Reports No Symptoms
Cardiac: Reports No Symptoms
Vascular: Denies Leg Pain / Claudication
Abdomen/GI: Reports No Symptoms
: Reports No Symptoms
Musculoskeletal: Reports No Symptoms
Skin: Reports No Symptoms
Neurological: Reports Weakness (Resolved) and Numbness (Resolved)
Physical Exam
Vital Signs
Pulse Resp BP Pulse Ox
78 15 132/70 98
09/02/24 16:30 09/02/24 16:30 09/02/24 16:15 09/02/24 16:30
Lab Results
09/02/24 15:59
09/02/24 15:59
Troponin I < 0.012 ng/ml 09/02/24 15:59
Physical Exam
General: No Apparent Distress
HEENT: Normocephalic and Atraumatic
Respiratory: Non Labored Respirations
Cardiac: Negative JVD
GI: Soft and Non Tender
Musculoskeletal: No Clubbing, No Cyanosis and No Edema
Skin: Warm
Neuro: Awake, Alert, Oriented and Nonfocal/Grossly Intact
Psych: Calm
Assessment / Plan
-
74-year-old male here with right hand weakness, right facial numbness, speech difficulties (all resolved at this time)
CTA suggests carotid dissection left ICA
MRI pending
Plan:
-Recommend cardiology consult for cardioembolic workup, he states he was a patient of Dr. Diggs and last saw him about 8 months ago
-MRI pending
-Possible left CEA , Dr. Cochran to see tomorrow
Data Reviewed
-
CT Scan: Discussed with Patient
Labs: Labs Reviewed by me
[2024-09-02 19:55] VITALS: BP 168/86
--- NOTE | 2024-09-02 21:36 | W.PN.UPDATE ---
Update Note
Progress Note Update
per RN patient passed swallow evaluation, will place on heart healthy diet with aspiration precautions
[2024-09-02] MEDS: PROCARDIA XL (EXTENDED RELEASE) 30 MG PO (22:44)
[2024-09-02 23:07] VITALS: BP 153/79
[2024-09-03] VITALS (9 sets, daily range): BP systolic 118–172; BP diastolic 70–95; PULSE 83; O2SAT 98
[2024-09-03 06:04] LABS: Hematocrit 34.2 % (39.0-52.0); Hemoglobin 12.3 g/dL (13.0-18.0); Mean Corpuscular Hgb 33.4 pg (27.0-31.0); Mean Corpuscular Volume 92.9 fL (80.0-94.0); Mean Platelet Volume 9.5 fL (7.4-10.4); Platelet Count 222 10^3/uL (130-400); Red Blood Cell Count 3.68 10^6/uL (4.70-6.10); Red Cell Dist. Width 12.9 % (11.5-14.5); White Blood Cell Count 6.3 10^3/uL (4.8-10.8)
[2024-09-03 06:25] LABS: VerifyNow Aspirin 596 ARU; VerifyNow PRU 169 PRU (180-376)
[2024-09-03 06:30] LABS: Blood Urea Nitrogen 17 mg/dl (9-20); Calcium 9.1 mg/dl (8.4-10.2); Carbon Dioxide 25 mmol/L (22-30); Chloride 104 mmol/L (98-107); Estimated Creatinine Clearance 61 ml/min; Glucose 86 mg/dl (70-99); HDL Cholesterol 59 mg/dl; LDL Cholesterol, Calculated 116 mg/dl; Potassium 4.2 mmol/L (3.5-5.1); Sodium 140 mmol/L (135-145); Total Cholesterol 187 mg/dl (50-199); Triglyceride 60 mg/dl (10-149); Very Low Density Lipoprotein 12 mg/dl (0-30); eGFR > 60.00
[2024-09-03 08:35] LABS: Glycohemoglobin (HgbA1c) 5.3 % (4.0-5.6)
[2024-09-03 08:36] LABS: TSH Reflex To Free T4 1.42 uIU/ml (0.47-4.68)
--- NOTE | 2024-09-03 09:12 | PTOTSP ---
Patient appears close to/if not at baseline. Patient demonstrates I with functional mobility and gait during assessment. Patient does not demonstrate any issues with balance. Patient at present does not demonstrate any acute skilled needs. Will
be able to return home with no needs at this time. Will sign off current, but if situation changes, please reconsult.
[2024-09-03] MEDS: ZOLOFT 25 MG PO (09:20)
[2024-09-03] MEDS: ASPIR LOW (ENTERIC COATED) 81 MG PO (09:20)
[2024-09-03] MEDS: NSS 1000 IV (09:20)
[2024-09-03] MEDS: PLAVIX 75 MG PO (09:20)
[2024-09-03] MEDS: ZETIA 10 MG PO (09:20)
--- NOTE | 2024-09-03 09:41 | W.PN.UPDATE ---
Update Note
Progress Note Update
Seen and evaluated. CT angiogram reviewed. Resolution of admitting symptoms. I compared to prior CT angiogram dated 2020. Distal more lesion in the proximal left internal carotid artery with dissection like finding is stable from last study.
However the more proximal segment there is an irregularity that represents either ulcerated plaque or a focal additional dissection seems to have been worsened since that study. However, the current CT angiogram demonstrates a left MCA severe
stenosis. This may have been more resulted in his symptoms as the degree of stenosis from the irregularity in the more proximal cervical internal carotid artery seems to be lesser. Will order [facility] of [facility] [place] to better evaluate that
left MCA stenosis. If indeed it is felt that the left MCA stenosis was resulted in symptoms (would ask neurology to update), then patient would need to be transferred to facility (likely [facility]) with endovascular neurosurgical
capabilities. Otherwise if MRA fails to demonstrate significant left MCA stenosis and/or it is felt that the cervical carotid caused this problem, then could plan for left carotid endarterectomy upcoming. Appreciate neurology/cardiology
evaluations. MRI brain also pending.
--- NOTE | 2024-09-03 10:35 | W.PN.NEURO.1 ---
Today's Communication / Plan
-
.
Subjective/Objective
Subjective Data
Date of Service: September 03, 2024
Mr. Jones reports no recurrent sensory symptoms since the admission. He denied having headache, neck pain, change in vision or motor deficits.
CTA head/neck- high-grade stenosis/near complete occlusion of the distal left M1 and left carotid bifurcation dissection extending into the proximal left ICA.
HnA1C 5.3, LDL 116.
PMH: L ICA stenosis, embolic strokes including left cerebellar(2021), CAD, HTN, DLP, CAITLIN, Neil's Esophagus
PSH: right CEA, LINQ( 07/01/2021), CABG, repair of incarcerated left inguinal hernia; l4-l5 laminectomy
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
All:Statins, Penicillins
ROS: Positive for weight loss
Neurological: Positive for transient right hemisensory deficits and dysarthria
General: Well developed. In no acute distress.
Cardio: Regular rate and rhythm without murmur. Extremities are without cyanosis or edema.
Neuro:
Mental Status: Alert, oriented to person, place, and date. Normal attention and recall. Good fund of knowledge. Follows complex requests across the midline. Comprehension, naming, and repetition intact.
Cranial Nerves: . Pupils are equally round and reactive to light. EOMs full. Visual hernandez full to confrontation. No ptosis. No nystagmus. V1-V3 intact to light touch and pinprick bilaterally, symmetric. Face symmetric. Normal hearing AU.
The palate elevated well. SCMs and traps 5/5. Tongue midline. No dysarthria.
Motor: Normal bulk and tone. No pronator or arm drift. Strength 5/5 throughout. No clonus.
Sensory: normal LT, no extinction to DSS
Coordination: Intermittent left dysmetria(prior left cerebellar infarct)
Gait: deferred
Bl pes cavus, hammer toes
Assessment and Plan:
I. TIA, likely L thalamic
II. L M1 severe stenosis
III. Chronic L carotid bifurcation dissection
IV. History of chronic bihemispheric embolic infarcts.
-Telemetry monitoring.
-Avoid cerebral hypoperfusion
-Continue Plavix 75 mg QD and aspirin 81 mg once a day
-LDL goal<100.
-Continue Repatha (statin intolerant)
-Brain MRI without
-Vascular surgery follow up
-DVT prophylaxis.
I personally reviewed all radiology and labs along with past medical records pertinent to current medical problems. Total time spent in patient care is 37 minutes.
Thank you for allowing us to participate in the care of this patient. We will continue to follow. Please do not hesitate to contact us with any questions or concerns.
Objective Data
Vital Signs
Temp Pulse Resp BP Pulse Ox
36.6 C 83 18 151/79 95
09/03/24 08:30 09/03/24 08:30 09/03/24 08:30 09/03/24 08:30 09/03/24 08:30
Lab Results
09/03/24 05:42
09/03/24 05:42
Sodium 140 mmol/L (135-145) 09/03/24 05:42
Potassium 4.2 mmol/L (3.5-5.1) 09/03/24 05:42
BUN 17 mg/dl (9-20) 09/03/24 05:42
Glucose 86 mg/dl (70-99) 09/03/24 05:42
Calcium 9.1 mg/dl (8.4-10.2) 09/03/24 05:42
LDL Cholesterol, Calc 116 mg/dl 09/03/24 05:42
Patient Allergies
Penicillins Allergy (Verified 09/02/24 15:45)
Swelling, hives, rash
atorvastatin [From Lipitor] Adverse Reaction (Verified 09/02/24 15:45)
Myalgias
rosuvastatin [From Crestor] Adverse Reaction (Verified 09/02/24 15:45)
pain everywhere
Vital Signs and Labs
-
Vital Signs and Labs:
Vital Signs
Temp Pulse Resp BP Pulse Ox
36.6 C 83 18 151/79 95
09/03/24 08:30 09/03/24 08:30 09/03/24 08:30 09/03/24 08:30 09/03/24 08:30
Lab Results
09/03/24 05:42
09/03/24 05:42
Sodium 140 mmol/L (135-145) 09/03/24 05:42
Potassium 4.2 mmol/L (3.5-5.1) 09/03/24 05:42
BUN 17 mg/dl (9-20) 09/03/24 05:42
Glucose 86 mg/dl (70-99) 09/03/24 05:42
Calcium 9.1 mg/dl (8.4-10.2) 09/03/24 05:42
LDL Cholesterol, Calc 116 mg/dl 09/03/24 05:42
Medications
-
Medications:
Generic Name Dose Route Start Last Admin
Trade Name Freq PRN Reason Stop Dose Admin
Acetaminophen 650 mg 09/02/24 18:24
Acetaminophen 650 Mg Rectal Suppository RECTAL 09/30/24 18:23
Q4HPRN PRN
VARGAS, mild pain, or temp >100.4F
Acetaminophen 650 mg 09/02/24 18:24
Acetaminophen 325 Mg Tablet PO 09/30/24 18:23
Q4HPRN PRN
VARGAS, mild pain, or temp >100.4F
Aspirin 81 mg 09/03/24 08:00 09/03/24 09:20
Aspirin 81 Mg (Enteric Coated) Tablet PO 10/01/24 07:59 81 mg
DAILY TORSTEN Administration
Clopidogrel Bisulfate 75 mg 09/03/24 08:00 09/03/24 09:20
Clopidogrel 75 Mg Tablet PO 10/01/24 07:59 75 mg
DAILY TORSTEN Administration
Ezetimibe 10 mg 09/03/24 08:00 09/03/24 09:20
Ezetimibe (Zetia) 10 Mg Tablet PO 10/01/24 07:59 10 mg
DAILY TORSTEN Administration
Heparin Sodium 5,000 units 09/03/24 16:00
Heparin 5,000 Units/Ml 1 Ml Vial SC 10/01/24 15:59
Q8 TORSTEN
Sodium Chloride 1,000 mls @ 100 mls/hr 09/02/24 18:24 09/03/24 09:20
Nss IV 1,000 mls
.Q10H TORSTEN Administration
Nifedipine 30 mg 09/02/24 22:00 09/02/24 22:44
Nifedipine 30 Mg Extended Release Tablet PO 09/30/24 21:59 30 mg
HS TORSTEN Administration
Sertraline HCl 25 mg 09/03/24 08:00 09/03/24 09:20
Sertraline 25 Mg Tablet PO 10/01/24 07:59 25 mg
DAILY TORSTEN Administration
Sodium Chloride 0 flush 09/02/24 20:00
Sodium Chloride 0.9% (Flush) Syringe IV 09/30/24 19:59
PER PROTOCOL TORSTEN
Home Medications
-
Home Medications
clopidogrel 75 mg tablet (Plavix) 75 mg PO DAILY Blood clot prevention/tx 05/09/21
ezetimibe 10 mg tablet (Zetia) 10 mg PO DAILY 01/07/23
hydrochlorothiazide 25 mg tablet 25 mg PO DAILY 01/07/23
lisinopril 40 mg tablet 40 mg PO HS 01/07/23
sertraline 25 mg tablet 25 mg PO DAILY 01/07/23
Lions Ranjit 1 tab PO DAILYPRN PRN supplement 09/01/24
aspirin 81 mg tablet,delayed release 81 mg PO DAILY 09/01/24
dandelion root 525 mg capsule 525 mg PO DAILYPRN PRN supplement 09/01/24
nifedipine 30 mg tablet,extended release 30 mg PO HS 09/01/24
therapeutic multivitamin 1 tab PO DAILY 09/01/24
--- NOTE | 2024-09-03 10:37 | W.PN.HOSP.TC ---
Addendum entered and electronically signed by Alejandro Barnett MD 09/03/24 10:42:
I have spent at least 59min reviewing the patient chart, test results, communication with consultants and direct patient care
Original Note:
Today's Communication/Plan
-
MRA pending
Cardio consult
Patient was hesitating if he wanbts to stay in the hospital since he has to take care of his demented , he was explained inn details that leving AMA will carry a risk of recurrent stroke or even . Patient is appropriate in his reasoning and
has capacity to make his own medical decisions on mgmt
Assessment / Plan
Assessment / Plan
74yo M with PMHx of CVA, CAD, HTN, HLD, R CEA and L carotid dissection came with RUE numbness and R lower face weakness, that was transient. CTA head and neck concerning for L carotid stenosis and near-total occlusion of L M1 segment .
A/P:
#TIA 2/2 severe ASCVD with multiple collaterals and near occlusion of L M1
#L carotid dissection
ASA, Plavix, Statin
Vascular follow up: MRA [place], might need neurovascualar evaluation if deemed to contribute to the symptoms. Cardiology consult reciommended
Neurology f/u
check HgbA1c, TSH
LDL >100 - Might need eval for outpatient [facility]
cont telemetry
Echo
#Essential HTN
#HLD
cont home meds
DVT ppx hep
FUll code
Anticipated Discharge: > 48 hours
Subjective/Interval History
-
Date of Service: September 03, 2024
Objective Data
-
Labs:
Laboratory Results
09/03/24
05:42
WBC 6.3
Hgb 12.3 L
Hct 34.2 L
Plt Count 222
Sodium 140
Potassium 4.2
Chloride 104
Carbon Dioxide 25
BUN 17
Creatinine 1.0
Glucose 86
Calcium 9.1
Vital Signs:
Vital Signs
Temp Pulse Resp BP Pulse Ox
97.9 F 83 18 151/79 95
09/03/24 08:30 09/03/24 08:30 09/03/24 08:30 09/03/24 08:30 09/03/24 08:30
I&O
09/02/24 09/03/24 09/04/24
06:59 06:59 05:59
Intake Total 240 / 240
Output Total 750 / 750
Balance -510 / -510
Review of Systems
-
History Source: Patient
All other systems: Reviewed and negative
Physical Exam
-
General: Comfortable
HEENT: Normocephalic and Atraumatic
Respiratory: Clear to Auscultation
Cardiac: Regular Rhythm
GI: Soft, Nontender and Nondistended
Genito-urinary: No Costovertebral Tender
Musculoskeletal: No Clubbing, No Cyanosis and No Edema
Skin: Warm
Neuro: Awake, Alert, Oriented, AO x 3 and No Motor Deficits
Psych: Calm
--- NOTE | 2024-09-03 11:00 | CON.CAR ---
Addendum entered and electronically signed by Kd Rogers MD (Ellie) 09/03/24 13:08:
I saw and examined the patient.
The DETAIL DRAFTER's note was reviewed and I agree with the note.
Comment:
74-year-old male with a history of hypertension, hyperlipidemia, CAD status post CABG 2016, PAD status post right carotid endarterectomy in 2020 with course complicated by stroke. At the time of stroke in 2020, he had a loop recorder placed and was
started on Plavix. ANNITA was unremarkable. He had another stroke in December 2021, and aspirin was added to his regimen. He presents with right sided weakness, facial droop, and speech slurring. Of note his last loop interrogation in June showed
no atrial fibrillation. On this admission, CTA head/neck on 09/02/2024 showed high-grade stenosis/near complete occlusion of the distal left M1 and left carotid bifurcation dissection extending into the proximal left ICA. Vascular surgery has been
consulted and has recommended an MRA which was done this morning but has not been read yet. Pending these results he may need a left carotid endarterectomy here versus more complex endovascular neurosurgery at [facility].
Cardiology has been consulted to comment on possible cardioembolic source of stroke. As noted above, his most recent loop interrogation in June showed no atrial fibrillation and he has had no atrial fibrillation on telemetry here. On Thursday we
will ask [employer] to interrogate his loop device to ensure no new atrial fibrillation since June. ANNITA in 2020 at the time of his initial stroke revealed no cardioembolic source of stroke. We will update a transthoracic echocardiogram with
bubble study on Thursday. If this is normal, I do not think he needs a repeat ANNITA given that we have a good alternative explanation for his stroke (neurovascular disease). He should be continued on aspirin and Plavix. If he should need vascular
surgery, he is at an elevated but acceptable risk from a cardiovascular standpoint. He is able to complete 4 METS of activity without any symptoms so does not require further testing prior to surgery.
Original Note:
Consultation
Consultation Request
Date/Time Consultation Requested: 09/03/24 10:45a
Date/Time Consultation Performed: 09/03/24 11a
Requesting Provider: Dr. Barnett
Performing Provider: TATIANNA Jiménez for Dr. Rogers
Reason for Consultation: cardioembolic evaluation/work up
Medical History
-
Chief Complaint: right hand weakness/speech difficulties
History of Present Illness:
Mr. Jones is a 74-year-old male with hypertension, dyslipidemia (statin intolerant, on Zetia, cannot afford Repatha), CAD status post CABG in 2017 (RAMOS to LAD and SVG to PDA), PAD s/p right CEA 05/2021 Dr. Cochran complicated by cerebellar stroke and
ILR implant 07/01/2021, and CVA (12/2021 on Plavix, ASA added), who presented to the ER 09/02/24 with c/o right hand weakness/speech difficulties. He was admitted to hospitalist service with vascular surgery and neurology following. CTA head/neck
09/02/24 with high-grade stenosis/near complete occlusion of the distal left M1 and left carotid bifurcation dissection extending into the proximal left ICA. His symptoms have resolved. We are consulted for cardioembolic work up. He has an ILR
([employer] LINQ II) that is monitored closely in our outpatient device clinic, no Afib has been seen since implant 06/2021. ANNITA 07/01/21 with normal biventricular size and function w/o regional wall motion abnormality, no significant valve
abnormalities, no intracardiac mass or thrombus formation seen, saline bubble study negative, no evidence of right to left shunting. TTE 03/03/24 with EF 60-65%, mild MR/AR/TR.
Past Medical History
Past Medical History: Other (as above)
Past Surgical History: Other (as above. hernia repair 12/2022, back surgery)
Social History
Tobacco: Non-Smoker
Alcohol: None
Personal:
Living: With Family
Family History
Family History: Reviewed & Not Pertinent
Allergies / Home Medications
Allergy/AdvReac Type Severity Reaction Status Date / Time
Penicillins Allergy Swelling, Verified 09/02/24 15:45
hives, rash
atorvastatin [From Lipitor] AdvReac Myalgias Verified 09/02/24 15:45
rosuvastatin [From Crestor] AdvReac pain Verified 09/02/24 15:45
everywhere
�Medication �Instructions �Recorded �Confirmed �Type
clopidogrel 75 mg tablet (Plavix) 75 mg PO DAILY Blood clot 05/09/21 09/02/24 History
prevention/tx
ezetimibe 10 mg tablet (Zetia) 10 mg PO DAILY 01/07/23 09/02/24 History
hydrochlorothiazide 25 mg tablet 25 mg PO DAILY 01/07/23 09/02/24 History
lisinopril 40 mg tablet 40 mg PO HS 01/07/23 09/02/24 History
sertraline 25 mg tablet 25 mg PO DAILY 01/07/23 09/02/24 History
Lions Ranjit 1 tab PO DAILYPRN PRN supplement 09/01/24 09/02/24 History
aspirin 81 mg tablet,delayed 81 mg PO DAILY 09/01/24 09/02/24 History
release
dandelion root 525 mg capsule 525 mg PO DAILYPRN PRN supplement 09/01/24 09/02/24 History
nifedipine 30 mg tablet,extended 30 mg PO HS 09/01/24 09/02/24 History
release
therapeutic multivitamin 1 tab PO DAILY 09/01/24 09/02/24 History
Review of Systems
-
History Source: Patient
All other systems: Negative unless noted
Physical Exam
Vital Signs
Temp Pulse Resp BP Pulse Ox
97.9 F 83 18 151/79 95
09/03/24 08:30 09/03/24 08:30 09/03/24 08:30 09/03/24 08:30 09/03/24 08:30
Lab Results
09/03/24 05:42
09/03/24 05:42
Troponin I < 0.012 ng/ml 09/02/24 15:59
Physical Exam
General: Well Developed and Well Nourished
HEENT: Normocephalic and Anicteric
Respiratory: Clear and Non Labored Respirations
Cardiac: S1/S2 and Regular Rhythm
Breast: Deferred by me
GI: Soft, Non Tender and Normal Bowel Sounds
Rectal: Deferred by Provider
Genito-urinary: No Costovertebral Tender
Musculoskeletal: No Clubbing, No Cyanosis and No Edema
Skin: Warm and Dry
Neuro: AO x 3
Hematologic/Lymphatic: No Lymphadenopathy
Psych: Calm
Impression / Plan
-
TIA/CVA symptoms - CT head/neck 09/02/24 with high-grade stenosis/near complete occlusion of the distal left M1 and left carotid bifurcation dissection extending into the proximal left ICA.
- followed by vascular surgery, MRA done this am, awaiting report.
- neurology following, brain MRI done this am, awaiting report.
- symptoms resolved, no recurrence.
- had CVA post right CEA and another CVA in 2021.
- ILR in place and no Afib seen since implant 2020.
- will interrogate device on Thursday09/05/24.
- check bubble TTE Thursday09/05/24.
- continue ASA, Plavix.
- tele reviewed and no Afib seen.
- pre-op risk assessment, high risk given age/comorbidities. He is able to perform > 4 METS w/o symptoms, so no further cardiac work up beyond bubble TTE 09/05/24.
PAD - s/p right CEA 05/2021.
- followed by Dr. Cochran as outpatient.
- continue ASA, Plavix, Zetia.
ILR - implanted 06/2021.
- [employer] LINQ II.
- followed closely in our outpatient device clinic, no Afib seen.
- will interrogate device 09/05/24.
CAD - s/p CABG 2016.
- stable w/o angina.
- last nuclear stress test was 2019 and negative for ischemia.
HTN - stable on meds, continue.
HLD - intolerant to statins.
- on Zetia with LDL 121 from 02/2024.
- Repatha prescribed by Dr. Lo but he cannot afford it.
- [facility].
Data Reviewed
-
CT Scan: Report Reviewed by me (carotid duplex 12/20/21: right carotid artery s/p endarterectomy is widely patent, with moderate soft plaque in the left carotid sys without hemodynamically significant stenosis or change.) and Other (CTA head/neck
09/02/24 - high-grade stenosis/near complete occlusion of the distal left M1 and left carotid bifurcation dissection extending into the proximal left ICA. )
MRI: Report Reviewed by me (Brain MRI 01/22/22: numerous small chronic infarct with encephalomalacia. Bilateral cerebellar hemisphere infarcts. No acute infarct. There was a small lacunar infarct in the left frontal region which was new since the
last exam.)
Medical Tests (Nuc Med, Echo etc): Report Reviewed by me (TTE 03/03/24 with EF 60-65%, mild MR/AR/TR. ) and Other (ANNITA 07/01/21 with normal biventricular size and function w/o regional wall motion abnormality, no significant valve abnormalities, no
intracardiac mass or thrombus formation seen, saline bubble study negative, no evidence of right to left shunting.)
Labs: Labs Reviewed by me
Old Records: Reviewed
[2024-09-03] MEDS: NSS IV (18:16)
[2024-09-03] MEDS: HEPARIN 5000 UNITS SC ×2 (18:18→23:12)
--- NOTE | 2024-09-03 18:30 | PTOTSP ---
ST Acute Care Evaluations
Pt demonstrates oral and pharyngeal parameters that are WFL for safe PO intake of all solids and liquids - no overt s/s of penetration or aspiration noted at bedside. Pt encouraged to choose softer foods that he knows he can chew. Pt with known hx
of esophageal dysfunction - hx of gastric ulcers, GERD, and stern's esophagus.
Pt demonstrates receptive language, expressive language, reading, naming, and repetition that are all WFL. Pt exhibits a weak vocal quality that has progressed with age, inability to sing, and some mild oral discoordination with verbal and nonverbal
tasks.
Recommendations:
- Continue with regular solids, thin liquids, meds as tolerated.
- General aspiration precautions.
- Reflux precautions.
- RUBBER AND PLASTICS WORKER to f/u re: diet tolerance and to ensure pt does not require an instrumental swallow study.
- RUBBER AND PLASTICS WORKER to f/u to further assess speech as well as cognitive communication skills.
[2024-09-03] MEDS: PROCARDIA XL (EXTENDED RELEASE) 30 MG PO (21:12)
--- NOTE | 2024-09-03 23:31 | PTCARENOTE ---
IVF off since this afternoon as per patient, patient would like to check with attending Dr before continue with IVF.
[2024-09-04] MEDS: NSS IV (01:24)
[2024-09-04 03:21] VITALS: BP 126/71
[2024-09-04 05:57] LABS: Hematocrit 35.9 % (39.0-52.0); Hemoglobin 12.8 g/dL (13.0-18.0); Mean Corp Hgb Conc. 35.7 g/dL (33.0-37.0); Mean Corpuscular Hgb 33.1 pg (27.0-31.0); Mean Corpuscular Volume 92.8 fL (80.0-94.0); Mean Platelet Volume 9.8 fL (7.4-10.4); Platelet Count 243 10^3/uL (130-400); Red Blood Cell Count 3.87 10^6/uL (4.70-6.10); Red Cell Dist. Width 12.7 % (11.5-14.5); White Blood Cell Count 5.6 10^3/uL (4.8-10.8)
[2024-09-04 06:00] VITALS: BMI 18.8
[2024-09-04 06:33] LABS: Blood Urea Nitrogen 17 mg/dl (9-20); Calcium 9.3 mg/dl (8.4-10.2); Carbon Dioxide 29 mmol/L (22-30); Chloride 101 mmol/L (98-107); Estimated Creatinine Clearance 61 ml/min; Glucose 82 mg/dl (70-99); Potassium 4.2 mmol/L (3.5-5.1); Sodium 141 mmol/L (135-145); eGFR > 60.00
[2024-09-04 07:00] VITALS: BP 162/83
--- NOTE | 2024-09-04 09:13 | CM ---
Addendum entered by Morena Yarbrough 09/04/24 09:30:
IMM benefit explained; form signed @ 0910
Original Note:
Met with patient at bedside; initial assessment and Case Management Consult completed
Pharmacy verified: [facility] [id number] [facility]
Patient and live in a 3 story home; 1 step to enter; 12 steps between floors; powder room 1st floor; 2nd floor bath has tub w/shower
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
DME: Loop Recorder (monitors for A-Fib)
NO SNF or Home Health utilization history
Will have transport home
Per PT no skilled therapy needed
Plan: Discharge to home when medically cleared; no needs
--- NOTE | 2024-09-04 09:21 | W.PN.UPDATE ---
Update Note
Progress Note Update
MRI brain report reviewed. Demonstrates small cortical infarcts in the MCA (left) distribution. MRA of [place] reviewed. Left MCA M1-M2 junction atherosclerosis/stenosis again noted as seen on CT. Therefore we will order carotid
ultrasound to see if the cervical carotid area does cause a hemodynamically significant stenosis. If not severe, then likely would favor that his infarct is related to intracranial middle cerebral stenosis. But would ask for neurology opinion
regarding what they think has caused his infarcts or if they can ascertain. If felt to be related to intracranial circulation, this would be outside of my area specialty and would defer to endovascular neurosurgeon. However if it is felt that the
cervical carotid is the source, then would favor revascularization likely if stenosis is confirmed on ultrasound, and would ask again neurology regarding timing of intervention given recent infarct.
[2024-09-04] MEDS: ZOLOFT 25 MG PO (09:32)
[2024-09-04] MEDS: ZETIA 10 MG PO (09:32)
[2024-09-04] MEDS: PLAVIX 75 MG PO (09:32)
[2024-09-04] MEDS: ASPIR LOW (ENTERIC COATED) 81 MG PO (09:33)
[2024-09-04] MEDS: HEPARIN 5000 UNITS SC ×3 (09:33→23:32)
--- NOTE | 2024-09-04 09:52 | W.PN.HOSP.TC ---
Today's Communication/Plan
-
pending Echo, loop recorder interrogation, US carotids and final plan for mgmt by Neuro and Vasc
Assessment / Plan
Assessment / Plan
74yo M with PMHx of PPM CVA, CAD, HTN, HLD, R CEA and L carotid dissection came with RUE numbness and R lower face weakness, that was transient. CTA head and neck concerning for L carotid stenosis and near-total occlusion of L M1 segment. Found
acute and chronic strokes. VascularSx and Neurology working on getting the mgmt plan: might need carotid repair vs neurovascular evaluation in tertiary care for intervention depending on most likely source of the stroke
A/P:
#Small acute cortical infarcts in the distribution of the peripheral posterior left MCA
#Old cerebellar infarcts and small chronic supratentorial lacunar infarcts
#atherosclerotic narrowing involving the cavernous carotid arteries, middle cerebral arteries, left intradural vertebral artery, and basilar artery
#L carotid dissection
#Carotid stenosis s/p R CEA
ASA, Plavix, Statin
Vascular follow up: MRA [place], might need neurovascular evaluation if deemed to be a source of symptoms. US carotids pending
Cardiology consult: Echo bubble study and loop recorder device interrogation pending
Neurology f/u
check HgbA1c, TSH
LDL >100 - Might need eval for outpatient [facility]CS[facility]-2
cont telemetry: no clinically significant arrhythmia seen
#CAD s/p CABG
#Essential HTN
#HLD
cont home meds
DVT ppx hep
FUll code
Anticipated Discharge: 24 - 48 hours
Subjective/Interval History
-
Date of Service: September 04, 2024
Objective Data
-
Labs:
Laboratory Results
09/04/24
05:03
WBC 5.6
Hgb 12.8 L
Hct 35.9 L
Plt Count 243
Sodium 141
Potassium 4.2
Chloride 101
Carbon Dioxide 29
BUN 17
Creatinine 1.0
Glucose 82
Calcium 9.3
Vital Signs:
Vital Signs
Temp Pulse Resp BP Pulse Ox
97.9 F 71 16 162/83 98
09/04/24 07:00 09/04/24 07:00 09/04/24 07:00 09/04/24 07:00 09/04/24 07:00
I&O
09/03/24 09/04/24 09/05/24
07:59 06:59 06:59
Intake Total
Output Total
Balance
Review of Systems
-
History Source: Patient
All other systems: Reviewed and negative
Physical Exam
-
General: No Apparent Distress
HEENT: Normocephalic, Atraumatic and Moist Mucous Membranes
GI: Soft, Nontender and Nondistended
Genito-urinary: No Costovertebral Tender
Musculoskeletal: No Clubbing, No Cyanosis and No Edema
Neuro: Awake, Alert, Oriented, AO x 3 and No Motor Deficits
Psych: Calm
[2024-09-04 11:00] VITALS: BP 146/91
--- NOTE | 2024-09-04 11:10 | W.PN.NEURO.1 ---
Addendum entered and electronically signed by Rachel Hernandez MD 09/04/24 18:17:
F/u ILR interrogation results.
Original Note:
Today's Communication / Plan
-
.
Subjective/Objective
Subjective Data
Date of Service: September 04, 2024
Neurology Progress Note:
Mr. Jones reports no recurrent sensory symptoms over the last 24h.
Off fluids.
Carotid Doppler US-pending.
Platelet function(09/03/2024, 02/26/21, 11/08/18) -no evidence of platelet dysfunction.
Pl P2Y12 React(09/03/24�)-169-positive for P2Y12 inhibitor effect.
Pl P2Y12 React(11/08/18�)-232(values greater than 194 PRU indicate insufficient inhibitor effect)
PMH: L ICA stenosis, embolic strokes including left cerebellar(2021), CAD, HTN, DLP, CAITLIN, Neil's Esophagus
PSH: right CEA, LINQ( 07/01/2021), CABG, repair of incarcerated left inguinal hernia; l4-l5 laminectomy
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
All:Statins, Penicillins
ROS: Positive for weight loss
Neurological: positive for transient right hemisensory deficits
General: Well developed. In no acute distress.
Cardio: Regular rate and rhythm without murmur. Extremities are without cyanosis or edema.
Neuro:
Mental Status: Alert, oriented to person, place, and date. Normal attention and recall. Good fund of knowledge. Follows complex requests across the midline. Comprehension, naming, and repetition intact.
Cranial Nerves: . Pupils are equally round and reactive to light. EOMs full. Visual hernandez full to confrontation. No ptosis. No nystagmus. V1-V3 intact to light touch and pinprick bilaterally, symmetric. Face symmetric. Normal hearing AU.
The palate elevated well. SCMs and traps 5/5. Tongue midline. No dysarthria.
Motor: Normal bulk and tone. No pronator or arm drift. Strength 5/5 throughout. No clonus.
Sensory: normal LT, no extinction to DSS
Coordination: Intermittent left dysmetria(prior left cerebellar infarct)
Gait: deferred
Bl pes cavus, hammer toes
Assessment and Plan:
I. Acute L M5/M6 topographic regions infarcts. Likely etiology-embolic(�intracranial large artery atherosclerosis
II. 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 Evidence of Aspirin inefficacy and equivocal data for Plavix effectiveness.
III. Chronic L carotid bifurcation dissection. Chronic moderate L ICA stenosis
IV. History of chronic bihemispheric embolic infarcts.
-Telemetry monitoring.
-Avoid cerebral hypoperfusion
-Continue Plavix 75 mg QD and aspirin 81 mg once a day
-Start Ticagrelor 180 mg once followed by 90 mg twice daily, beginning ~6 to 12 hours after initial loading dose if no objections from cardiology and vascular service. No safety data is available for Plavix/Ticagrelor combination. D/c Aspirin and
Plavix.
-LDL goal<100.
-Follow up on carotid Doppler US
-Vascular surgery follow up
-DVT prophylaxis.
I personally reviewed all radiology and labs along with past medical records pertinent to current medical problems. Total time spent in patient care is 35 minutes.
Thank you for allowing us to participate in the care of this patient. We will continue to follow. Please do not hesitate to contact us with any questions or concerns.
Objective Data
Vital Signs
Temp Pulse Resp BP Pulse Ox
36.6 C 71 16 162/83 98
09/04/24 07:00 09/04/24 07:00 09/04/24 07:00 09/04/24 07:00 09/04/24 07:00
Lab Results
09/04/24 05:03
09/04/24 05:03
Sodium 141 mmol/L (135-145) 09/04/24 05:03
Potassium 4.2 mmol/L (3.5-5.1) 09/04/24 05:03
BUN 17 mg/dl (9-20) 09/04/24 05:03
Glucose 82 mg/dl (70-99) 09/04/24 05:03
Calcium 9.3 mg/dl (8.4-10.2) 09/04/24 05:03
LDL Cholesterol, Calc 116 mg/dl 09/03/24 05:42
Patient Allergies
Penicillins Allergy (Verified 09/02/24 15:45)
Swelling, hives, rash
atorvastatin [From Lipitor] Adverse Reaction (Verified 09/02/24 15:45)
Myalgias
rosuvastatin [From Crestor] Adverse Reaction (Verified 09/02/24 15:45)
pain everywhere
Vital Signs and Labs
-
Vital Signs and Labs:
Vital Signs
Temp Pulse Resp BP Pulse Ox
36.7 C 79 18 146/91 97
09/04/24 11:00 09/04/24 11:00 09/04/24 11:00 09/04/24 11:00 09/04/24 11:00
Lab Results
09/04/24 05:03
09/04/24 05:03
Sodium 141 mmol/L (135-145) 09/04/24 05:03
Potassium 4.2 mmol/L (3.5-5.1) 09/04/24 05:03
BUN 17 mg/dl (9-20) 09/04/24 05:03
Glucose 82 mg/dl (70-99) 09/04/24 05:03
Calcium 9.3 mg/dl (8.4-10.2) 09/04/24 05:03
LDL Cholesterol, Calc 116 mg/dl 09/03/24 05:42
Medications
-
Medications:
Generic Name Dose Route Start Last Admin
Trade Name Freq PRN Reason Stop Dose Admin
Acetaminophen 650 mg 09/02/24 18:24
Acetaminophen 650 Mg Rectal Suppository RECTAL 09/30/24 18:23
Q4HPRN PRN
VARGAS, mild pain, or temp >100.4F
Acetaminophen 650 mg 09/02/24 18:24
Acetaminophen 325 Mg Tablet PO 09/30/24 18:23
Q4HPRN PRN
VARGAS, mild pain, or temp >100.4F
Aspirin 81 mg 09/03/24 08:00 09/04/24 09:33
Aspirin 81 Mg (Enteric Coated) Tablet PO 10/01/24 07:59 81 mg
DAILY TORSTEN Administration
Clopidogrel Bisulfate 75 mg 09/03/24 08:00 09/04/24 09:32
Clopidogrel 75 Mg Tablet PO 10/01/24 07:59 75 mg
DAILY TORSTEN Administration
Ezetimibe 10 mg 09/03/24 08:00 09/04/24 09:32
Ezetimibe (Zetia) 10 Mg Tablet PO 10/01/24 07:59 10 mg
DAILY TORSTEN Administration
Heparin Sodium 5,000 units 09/03/24 16:00 09/04/24 09:33
Heparin 5,000 Units/Ml 1 Ml Vial SC 10/01/24 15:59 5,000 units
Q8 TORSTEN Administration
Nifedipine 30 mg 09/02/24 22:00 09/03/24 21:12
Nifedipine 30 Mg Extended Release Tablet PO 09/30/24 21:59 30 mg
HS TORSTEN Administration
Sertraline HCl 25 mg 09/03/24 08:00 09/04/24 09:32
Sertraline 25 Mg Tablet PO 10/01/24 07:59 25 mg
DAILY TORSTEN Administration
Sodium Chloride 0 flush 09/02/24 20:00
Sodium Chloride 0.9% (Flush) Syringe IV 09/30/24 19:59
PER PROTOCOL TORSTEN
Home Medications
-
Home Medications
clopidogrel 75 mg tablet (Plavix) 75 mg PO DAILY Blood clot prevention/tx 05/09/21
ezetimibe 10 mg tablet (Zetia) 10 mg PO DAILY 01/07/23
hydrochlorothiazide 25 mg tablet 25 mg PO DAILY 01/07/23
lisinopril 40 mg tablet 40 mg PO HS 01/07/23
sertraline 25 mg tablet 25 mg PO DAILY 01/07/23
Lions Ranjit 1 tab PO DAILYPRN PRN supplement 09/01/24
aspirin 81 mg tablet,delayed release 81 mg PO DAILY 09/01/24
dandelion root 525 mg capsule 525 mg PO DAILYPRN PRN supplement 09/01/24
nifedipine 30 mg tablet,extended release 30 mg PO HS 09/01/24
therapeutic multivitamin 1 tab PO DAILY 09/01/24
--- NOTE | 2024-09-04 13:19 | PTOTSP ---
ST Follow-Up
Chart reviewed. Pt awaiting neurosx and cardiology recs.
Pt seen at bedside for f/u dysphagia tx and cognitive linguistic assessment. Pt took PO trials of regular solids and thin liquids with no difficulties - oral, pharyngeal, and esophageal phases WFL. No overt s/s of penetration or aspiration at
bedside. Pt demonstrates oral, pharyngeal, and esophageal parameters that are WFL for safe PO intake of all solids and liquids - no skilled dysphagia needs at this time.
MOCA administered. Pt received a score of 26/30, which was WNL. Pt aware of his occasional short term memory difficulties and communicated how he compensates for it. Speech was clear and fully intelligible. No skilled speech, language, or cognitive
linguistic needs at this time.
At this time, pt does not display any need for skilled BUTCHER APPRENTICE services. BUTCHER APPRENTICE to sign off. Please re-consult if anything changes. Thank you.
[2024-09-04 15:00] VITALS: BP 147/79
[2024-09-04 19:43] VITALS: BP 150/87
[2024-09-04] MEDS: PROCARDIA XL (EXTENDED RELEASE) 30 MG PO (21:25)
[2024-09-04 23:27] VITALS: BP 125/69
[2024-09-05 03:54] VITALS: BP 122/65
[2024-09-05 06:00] VITALS: BMI 18.8
[2024-09-05 07:25] VITALS: BP 124/84
--- NOTE | 2024-09-05 08:07 | W.PN.CD ---
Addendum entered and electronically signed by Rodolfo Yu MD 09/05/24 08:14:
loop[ monitor is a [employer] device.
Original Note:
Today's Communication / Plan
-
feels well. Denies symptoms
remains in sinus
continued assessment by vascular and neuro and hospitalists
will interrogarte loop monitor today
Impression / Plan
-
TIA/CVA symptoms - CT head/neck 09/02/24 with high-grade stenosis/near complete occlusion of the distal left M1 and left carotid bifurcation dissection extending into the proximal left ICA.
- followed by vascular surgery, MRA done this am, awaiting report.
- neurology following, brain MRI done this am, awaiting report.
- symptoms resolved, no recurrence.
- had CVA post right CEA and another CVA in 2021.
- ILR in place and no Afib seen since implant 2020.
- interrogationof loop monitor t 09/05/24
- check bubble TTE Thursday09/05/24.
- continue ASA, Plavix.
- tele reviewed and no Afib seen.
- pre-op risk assessment, high risk given age/comorbidities. He is able to perform > 4 METS w/o symptoms, so no further cardiac work up beyond bubble TTE 09/05/24.
PAD - s/p right CEA 05/2021.
- followed by Dr. Cochran as outpatient.
- continue ASA, Plavix, Zetia.
ILR - implanted 06/2021.
- Medtronic LINQ II.
- followed closely in our outpatient device clinic, no Afib seen.
- will interrogate device 09/05/24.
CAD - s/p CABG 2016.
- stable w/o angina.
- last nuclear stress test was 2019 and negative for ischemia.
HTN - stable on meds, continue.
HLD - intolerant to statins.
- on Zetia with LDL 121 from 02/2024.
- Repatha prescribed by Dr. Lo but he cannot afford it.
- can look into [facility] or [facility] as an outpatient.
Head and neck CTA 09/02/24 - CTA Head: There is focal high-grade stenosis/near complete occlusion of the distal left M1 segment with immediate reconstitution. Hypoplastic right A1 segment, normal variant. There is atherosclerotic calcifications of
the bilateral petrous, cavernous and paraclinoid segments of the ICAs with resultant multifocal moderate stenosis.
CTA Neck: There is mixed density atherosclerotic plaque of the left carotid bifurcation with associated dissection extending into the proximal left ICA. Atherosclerotic calcifications of the V4 segment of the left vertebral artery with associated
severe stenosis, similar to prior. 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
[place] - Overall stable findings, with atherosclerotic narrowing involving the cavernous carotid arteries, middle cerebral arteries, left intradural vertebral artery, and basilar artery, as described. No occlusion.
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
MRI Small acute cortical infarcts in the distribution of the peripheral posterior left MCA.
Old cerebellar infarcts and small chronic supratentorial lacunar infarcts. Moderate chronic microvascular white matter ischemic disease.
Physical Exam
Vital Signs/Labs
Vital Signs
Temp Pulse Resp BP Pulse Ox
97.7 F 77 16 124/84 98
09/05/24 07:25 09/05/24 07:25 09/05/24 07:25 09/05/24 07:25 09/05/24 07:25
09/04/24 09/05/24 09/06/24
06:59 06:59 06:59
Actual Weight 62.85 kg
Magnesium 1.8 mg/dl (1.6-2.3) 09/02/24 15:59
Triglycerides 60 mg/dl (10-149) 09/03/24 05:42
LDL Cholesterol, Calc 116 mg/dl 09/03/24 05:42
VLDL Cholesterol, Calc 12 mg/dl (0-30) 09/03/24 05:42
HDL Cholesterol 59 mg/dl 09/03/24 05:42
LAB Results
09/02/24
15:59
Troponin I < 0.012
Physical Exam
Constitutional: No acute distress
Cardiovascular: Rhythm & rate is regular
Respiratory: Respiratory effort normal
GI: Soft
Data Reviewed
-
Date of Service: September 05, 2024
Medical Decision Making: Reviewed Test Results
Echo: Report Reviewed by me
Medical Tests (PFT, Pathology etc): Report Reviewed by me
[2024-09-05 08:31] LABS: Hematocrit 38.1 % (39.0-52.0); Hemoglobin 13.9 g/dL (13.0-18.0); Mean Corp Hgb Conc. 36.5 g/dL (33.0-37.0); Mean Corpuscular Hgb 34.4 pg (27.0-31.0); Mean Corpuscular Volume 94.3 fL (80.0-94.0); Mean Platelet Volume 9.8 fL (7.4-10.4); Platelet Count 245 10^3/uL (130-400); Red Blood Cell Count 4.04 10^6/uL (4.70-6.10); Red Cell Dist. Width 12.5 % (11.5-14.5); White Blood Cell Count 5.9 10^3/uL (4.8-10.8)
--- NOTE | 2024-09-05 08:53 | W.PN.HOSP.TC ---
Today's Communication/Plan
-
Continue DVT prophylaxis
PT/OT
Clopidogrel and Zetia
Vascular evaluation
Assessment / Plan
Assessment / Plan
Physical Exam
General: No Apparent Distress
HEENT: Normocephalic, Atraumatic and Moist Mucous Membranes
GI: Soft, Nontender and Nondistended. Positive bowel sounds.
Musculoskeletal: No Cyanosis and No Edema
Neuro: Awake, Alert, Oriented, AO x 3 and No Motor Deficits
Psych: Calm
Echocardiogram (as per hydraulic auto jack mechanic's report)
'CONCLUSIONS
Normal biventricular size and systolic function without regional wall motion
abnormality.
Mild to moderate mitral regurgitation.
Right heart pressures could not be determined.
Interatrial septum is intact with no evidence of shunting by agitated saline
bubble study with and without Valsalva.
No significant change since the prior study of 03/03/2024 except a bubble study
was not performed on the prior study. A ANNITA 06/2021 with IV agitated saline
bubble study was also negative.'
Assessment/Plan
74 y/o male with past medical history of PPM CVA, CAD, HTN, HLD, R CEA and L carotid dissection came with RUE numbness and R lower face weakness, that was transient. CTA head and neck concerning for L carotid stenosis and near-total occlusion of L
M1 segment. Found acute and chronic strokes. Vascular Surgery and Neurology working on getting the mgmt plan: might need carotid repair vs neurovascular evaluation in tertiary care for intervention depending on most likely source of the stroke
#Recurrent stroke despite combination ASA/Clopidogrel
#Small acute cortical infarcts in the distribution of the peripheral posterior left MCA
#Old cerebellar infarcts and small chronic supratentorial lacunar infarcts
#atherosclerotic narrowing involving the cavernous carotid arteries, middle cerebral arteries, left intradural vertebral artery, and basilar artery
#L carotid dissection
#Carotid stenosis s/p R CEA
#History of CVA post right CEA and another CVA in 2021
#Acute L MCA ischemic infarcts
#Intra/extracranial atherosclerosis including L M1/M2 stenosis. Evidence of Aspirin inefficacy and equivocal data for Plavix effectiveness.
#History of chronic bihemispheric embolic infarcts.
#CTA suggested left ICA dissection which was not correlated in MRA of the head or carotid ultrasound
ASA, Plavix, Statin
Vascular follow up: MRA [place], might need neurovascular evaluation if deemed to be a source of symptoms. US carotids pending
Follow-up on MR Brain results
Cardiology consult: Echo bubble study results are above
Loop recorder device interrogation for today
Per neurology, due to recurrent events of stroke while on dual antiplatelet therapy, and lack of clear evidence of efficacy with aspirin by repetitive testing using P2 Y12 assay, stop Aspirin. Consider PCSK9 inhibitor outpatient. Continue
clopidogrel, and consider addition of ticagrelor if new cardiovascular event despite maximization of lipid profile. Continue Ezetimibe.
Confirm with vascular surgery and neurology based on carotid ultrasound whether or not Brilinta should be added
Neuro and Vasc working on final plan: carotid intervention vs neurovascular eval.
check HgbA1c, TSH
LDL >100 - Might need eval for outpatient PCSK-2
cont telemetry: no clinically significant arrhythmia seen
#CAD s/p CABG in 2016
#Essential HTN
#PAD - s/p right CEA 05/2021
-Follow Dr. Cochran outpatient
-Continue Plavix, Zetia
#HLD
intolerant to statins
Continue Zetia.
cont home meds
DVT ppx heparin subq and SCDs
FUll code
Anticipated Discharge: 24 - 48 hours
Subjective/Interval History
-
Date of Service: September 05, 2024
Patient was seen and examined. He reported that he is fine.
Objective Data
-
Labs:
Laboratory Results
09/05/24
07:47
WBC 5.9
Hgb 13.9
Hct 38.1 L
Plt Count 245
Sodium Pending
Potassium Pending
Chloride Pending
Carbon Dioxide Pending
BUN Pending
Creatinine Pending
Glucose Pending
Calcium Pending
Vital Signs:
Vital Signs
Temp Pulse Resp BP Pulse Ox
97.7 F 77 16 124/84 98
09/05/24 07:25 09/05/24 07:25 09/05/24 07:25 09/05/24 07:25 09/05/24 07:25
I&O
09/04/24 09/05/24 09/06/24
06:59 06:59 06:59
Intake Total 240 / 240
Output Total
Balance 240 / 240
[2024-09-05] MEDS: ASPIR LOW (ENTERIC COATED) 81 MG PO (08:59)
[2024-09-05] MEDS: HEPARIN 5000 UNITS SC ×3 (08:59→23:28)
[2024-09-05] MEDS: ZOLOFT 25 MG PO (09:00)
[2024-09-05] MEDS: PLAVIX 75 MG PO (09:00)
[2024-09-05] MEDS: ZETIA 10 MG PO (09:00)
[2024-09-05 09:03] LABS: Blood Urea Nitrogen 22 mg/dl (9-20); Calcium 9.3 mg/dl (8.4-10.2); Carbon Dioxide 25 mmol/L (22-30); Chloride 103 mmol/L (98-107); Estimated Creatinine Clearance 56 ml/min; Glucose 92 mg/dl (70-99); Potassium 4.3 mmol/L (3.5-5.1); Sodium 140 mmol/L (135-145); eGFR > 60.00
--- NOTE | 2024-09-05 10:48 | CM ---
store operations manager reviewed patient's chart and met with patient this am, patient is for discharge to home when stable. Patient lives with spouse and provides care for spouse, neighbors comment that patient may need more supports in home, family service caseworker
spoke with patient and offered patient WAIVER or OPTIONS referrals through [facility] but patient declined.
Plan; Home at discharge patient provided with contact information from [facility].
[2024-09-05 11:21] VITALS: BP 154/84
--- NOTE | 2024-09-05 14:10 | W.PN.NEURO.1 ---
Today's Communication / Plan
-
Due to recurrent events of stroke while on dual antiplatelet therapy, and lack of clear evidence of efficacy with aspirin by repetitive testing using P2 Y12 assay, would discontinue the use of aspirin at this time
Would attempt to maximize stroke prevention by providing patient as an outpatient with PCSK9 inhibitor
Continue clopidogrel, consider addition of ticagrelor if new cardiovascular event despite maximization of lipid profile
Neuro Assessment/Plan
Assessment
I. Acute L MCA ischemic infarcts
II. 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 Evidence of Aspirin inefficacy and equivocal data for Plavix effectiveness.
III. History of chronic bihemispheric embolic infarcts.
CTA suggested left ICA dissection which was not correlated in MRA of the head or carotid ultrasound
Patient was not initially a candidate for tenecteplase or intra-arterial thrombectomy due to timeframe and absence of clot for retrieval, respectively
Plan
Due to recurrent events of stroke while on dual antiplatelet therapy, and lack of clear evidence of efficacy with aspirin by repetitive testing using P2 Y12 assay, would discontinue the use of aspirin at this time
Would attempt to maximize stroke prevention by providing patient as an outpatient with PCSK9 inhibitor
Continue clopidogrel, consider addition of ticagrelor if new cardiovascular event despite maximization of lipid profile
Continue Ezetimibe
Provide medical educational materials
Goal of normotension
Will follow as needed.
Subjective/Objective
Subjective Data
Date of Service: September 05, 2024
Objective Data
Vital Signs
Temp Pulse Resp BP Pulse Ox
36.4 C 68 18 154/84 99
09/05/24 11:21 09/05/24 11:21 09/05/24 11:21 09/05/24 11:21 09/05/24 11:21
Lab Results
09/05/24 07:47
09/05/24 07:47
Sodium 140 mmol/L (135-145) 09/05/24 07:47
Potassium 4.3 mmol/L (3.5-5.1) 09/05/24 07:47
BUN 22 mg/dl (9-20) H 09/05/24 07:47
Glucose 92 mg/dl (70-99) 09/05/24 07:47
Calcium 9.3 mg/dl (8.4-10.2) 09/05/24 07:47
LDL Cholesterol, Calc 116 mg/dl 09/03/24 05:42
Patient Allergies
Penicillins Allergy (Verified 09/02/24 15:45)
Swelling, hives, rash
atorvastatin [From Lipitor] Adverse Reaction (Verified 09/02/24 15:45)
Myalgias
rosuvastatin [From Crestor] Adverse Reaction (Verified 09/02/24 15:45)
pain everywhere
Data Reviewed
-
CT-A: Report Reviewed
MRI Head: Report Reviewed
MRA Head: Report Reviewed
Carotid Ultrasound: Report Reviewed
Labs: Report Reviewed
Lipid Profile: Report Reviewed
Reviewed with: Physician and Nurse Practioner
Old Records: Summarized
Past History
Past History
ED Past Medical History: CAD, CVA (Right lentiform infarct November 2018), GERD, HTN, Hypercholesterolemia, Psychiatric (Anxiety/depression) and Other (Neil's esophagus, peptic ulcer disease, chronic back pain)
ED Past Surgical History: Cardiac (CABG 2016, Linq recorder July 01, 2021), Orthopedic (L4-5 laminectomy) and Other (Right CEA, herniorrhaphy)
Social History
Tobacco: Former smoker
Alcohol: None
Drug: None
Personal:
Living: other (With phototypesetting equipment monitor)
Employment: Employed ([employer])
Family History
Family History: Other (Noncontributory)
Medications
-
Medications:
Generic Name Dose Route Start Last Admin
Trade Name Freq PRN Reason Stop Dose Admin
Acetaminophen 650 mg 09/02/24 18:24
Acetaminophen 650 Mg Rectal Suppository RECTAL 09/30/24 18:23
Q4HPRN PRN
VARGAS, mild pain, or temp >100.4F
Acetaminophen 650 mg 09/02/24 18:24
Acetaminophen 325 Mg Tablet PO 09/30/24 18:23
Q4HPRN PRN
VARGAS, mild pain, or temp >100.4F
Aspirin 81 mg 09/03/24 08:00 09/05/24 08:59
Aspirin 81 Mg (Enteric Coated) Tablet PO 10/01/24 07:59 81 mg
DAILY TORSTEN Administration
Clopidogrel Bisulfate 75 mg 09/03/24 08:00 09/05/24 09:00
Clopidogrel 75 Mg Tablet PO 10/01/24 07:59 75 mg
DAILY TORSTEN Administration
Ezetimibe 10 mg 09/03/24 08:00 09/05/24 09:00
Ezetimibe (Zetia) 10 Mg Tablet PO 10/01/24 07:59 10 mg
DAILY TORSTEN Administration
Heparin Sodium 5,000 units 09/03/24 16:00 09/05/24 08:59
Heparin 5,000 Units/Ml 1 Ml Vial SC 10/01/24 15:59 5,000 units
Q8 TORSTEN Administration
Nifedipine 30 mg 09/02/24 22:00 09/04/24 21:25
Nifedipine 30 Mg Extended Release Tablet PO 09/30/24 21:59 30 mg
HS TORSTEN Administration
Sertraline HCl 25 mg 09/03/24 08:00 09/05/24 09:00
Sertraline 25 Mg Tablet PO 10/01/24 07:59 25 mg
DAILY TORSTEN Administration
Sodium Chloride 0 flush 09/02/24 20:00
Sodium Chloride 0.9% (Flush) Syringe IV 09/30/24 19:59
PER PROTOCOL TORSTEN
[2024-09-05 15:21] VITALS: BP 134/79
[2024-09-05 19:15] VITALS: BP 160/81
[2024-09-05] MEDS: PROCARDIA XL (EXTENDED RELEASE) 30 MG PO (22:07)
[2024-09-05 23:15] VITALS: BP 130/76
[2024-09-06 03:12] VITALS: BP 127/86
[2024-09-06 06:00] VITALS: BMI 19.0
--- NOTE | 2024-09-06 07:44 | W.PN.HOSP.TC ---
Today's Communication/Plan
-
Discharge today
Assessment / Plan
Assessment / Plan
Physical Exam
General: No Apparent Distress
HEENT: Normocephalic, Atraumatic and Moist Mucous Membranes
GI: Soft, Nontender and Nondistended. Positive bowel sounds.
Musculoskeletal: No Cyanosis and No Edema
Neuro: Awake, Alert, Oriented, AO x 3. Cranial Nerves, Strength and Sensation grossly intact bilaterally.
Psych: Calm
CT Head (as per radiologist's report)
'IMPRESSION:
There are no acute intracranial abnormalities.
There is an old 2 cm left cerebellar infarct
There are old bilateral lacunar infarcts
There is moderate diffuse cortical atrophy with moderate nonspecific white matter changes as described above.'
CT Head (as per radiologist's report)
'IMPRESSION:
No acute intracranial abnormality.
Unchanged sequelae of moderate small vessel ischemic disease with multifocal lacunar infarctions.'
CTA Head and Neck (as per radiologist's report)
'IMPRESSION:
CTA Head: There is focal high-grade stenosis/near complete occlusion of the distal left M1 segment with immediate reconstitution. Hypoplastic right A1 segment, normal variant. There is atherosclerotic calcifications of the bilateral petrous,
cavernous and paraclinoid segments of the ICAs with resultant multifocal moderate stenosis.
CTA Neck: There is mixed density atherosclerotic plaque of the left carotid bifurcation with associated dissection extending into the proximal left ICA. Atherosclerotic calcifications of the V4 segment of the left vertebral artery with associated
severe stenosis, similar to prior. There is likely PICA termination of the right vertebral artery.'
PLEASE NOTE THAT PER DR. LOERA (NEUROLOGIST): THE ABOVE MENTIONED DISSECTION (IN THE CTA IMAGING REPORT) WAS NOT REDEMONSTRATED
MRI Brain (as per radiologist's report)
'IMPRESSION:
Small acute cortical infarcts in the distribution of the peripheral posterior left MCA.
Old cerebellar infarcts and small chronic supratentorial lacunar infarcts. Moderate chronic microvascular white matter ischemic disease.
No mass effect or midline shift.'
Head Magnetic Resonance Angiography (as per radiologist's report)
'IMPRESSION:
Overall stable findings, with atherosclerotic narrowing involving the cavernous carotid arteries, middle cerebral arteries, left intradural vertebral artery, and basilar artery, as described. No occlusion.
Stable developmental findings including development of absence of the right anterior cerebral artery A1 segment, right posterior cerebral artery P1 segment, and termination of the right vertebral artery as the posterior inferior cerebellar artery.'
Cerebrovascular Carotid Ultrasound (as per radiologist's report)
'IMPRESSION:
RIGHT: Heterogeneous plaque is identified throughout the common carotid artery. Patent carotid endarterectomy. Carotid velocity measurements are consistent with less than 50% internal carotid artery stenosis. Vertebral artery flow is antegrade.
LEFT: Heterogeneous plaque is identified throughout the common carotid artery. Soft plaque is identified in the carotid bulb. Carotid velocity measurements are consistent with 50-69% internal carotid artery stenosis. Vertebral artery flow is
antegrade.'
Echocardiogram (as per meteorological engineer's report)
'CONCLUSIONS
Normal biventricular size and systolic function without regional wall motion
abnormality.
Mild to moderate mitral regurgitation.
Right heart pressures could not be determined.
Interatrial septum is intact with no evidence of shunting by agitated saline
bubble study with and without Valsalva.
No significant change since the prior study of 03/03/2024 except a bubble study
was not performed on the prior study. A ANNITA 06/2021 with IV agitated saline
bubble study was also negative.'
Assessment/Plan
74 y/o male with past medical history of PPM CVA, CAD, HTN, HLD, R CEA and L carotid dissection came with RUE numbness and R lower face weakness, that was transient. CTA head and neck concerning for L carotid stenosis and near-total occlusion of L
M1 segment. Found acute and chronic strokes. Vascular Surgery and Neurology working on getting the mgmt plan: might need carotid repair vs neurovascular evaluation in tertiary care for intervention depending on most likely source of the stroke
#Recurrent stroke despite combination ASA/Clopidogrel
#Small acute cortical infarcts in the distribution of the peripheral posterior left MCA
#Old cerebellar infarcts and small chronic supratentorial lacunar infarcts
#atherosclerotic narrowing involving the cavernous carotid arteries, middle cerebral arteries, left intradural vertebral artery, and basilar artery
#Questionable left carotid dissection (DR. LOERA, NEUROLOGIST, MENTIONED THAT THIS WAS NOT REDEMONSTRATED)
#CTA suggested left ICA dissection which was not correlated in MRA of the head or carotid ultrasound (as per neurologist)
#Carotid stenosis s/p R CEA
#History of CVA post right CEA and another CVA in 2021
#Acute left MCA ischemic infarcts
#Intra/extracranial atherosclerosis including L M1/M2 stenosis. Evidence of Aspirin inefficacy and equivocal data for Plavix effectiveness.
#History of chronic bihemispheric embolic infarcts.
-On 09/06/24, I discussed (via [facility]) patient's final antithrombotic regimen on discharge with Dr. Cochran (vascular surgeon), Dr. Loera (neurologist), and Dr. Rogers (meteorological engineer), and we all agreed that patient should on Plavix and Zetia only
on discharge (no Aspirin, no Brilinta, and no statin on discharge)
-Patient cannot afford Repatha, can look into Praluent or Leqvio, follow-up with meteorological engineer Dr. Lo about this
-Per Vascular Surgery YOUTH DEVELOPMENT PROFESSIONAL Deepa Prieto [facility] on September 06, 2024, both Dr. Cochran (vascular surgeon) and Dr. Loera (neurologist) reviewed patient's carotid ultrasound and they both feel that patient is not having symptoms related to his carotid
arteries
Imaging studies are above
Cardiology consult: Echo bubble study results are above -- results were unremarkable with negative bubble study
Loop recorder device interrogation showed no atrial fibrillation, as per cardiology
No Atrial fibrillation on telemetry
Per neurology, due to recurrent events of stroke while on dual antiplatelet therapy, and lack of clear evidence of efficacy with aspirin by repetitive testing using P2 Y12 assay, stop Aspirin. Consider PCSK9 inhibitor outpatient. Continue
clopidogrel, and consider addition of ticagrelor if new cardiovascular event despite maximization of lipid profile. Continue Ezetimibe.
HbA1c 5.3%
TSH 1.42
-Follow-up with Dr. Cochran (vascular surgeon) outpatient
-Follow-up with vascular neurology outpatient -- can call [place] [facility] (Dr. Bowie or Dr. Avila at [place]) or neurovascular surgery at [facility]
#Implantable loop recorder (ILR) implanted in June 2021
-Follow-up closely with outpatient cardiology
#CAD s/p CABG in 2016
-Stable
-No chest pain
#Essential HTN
#PAD - s/p right CEA 05/2021
-Follow-up with Dr. Cochran outpatient
-Continue Plavix, Zetia
#HLD
intolerant to statins
Continue Zetia.
cont home meds
Follow-up with cardiology outpatient
#Underweight
DVT Prophylaxis: heparin subq and SCDs
Code Status: Full code
More than 30 minutes spent in discharge including
Final examination of the patient
Summarizing hospital stay
Instructions for continuing care to all relevant caregivers
Preparation of discharge records, prescriptions, and referral forms
Total time spent (in minutes): 38
Anticipated Discharge: Today
Subjective/Interval History
-
Date of Service: September 06, 2024
Patient was seen and examined. He denied any headache, blurry vision, numbness, tingling, weakness, chest pain, shortness of breath or any other complaints. He would like to go home today.
Objective Data
-
Labs:
Laboratory Results
09/06/24
06:00
WBC Pending
Hgb Pending
Hct Pending
Plt Count Pending
Sodium Pending
Potassium Pending
Chloride Pending
Carbon Dioxide Pending
BUN Pending
Creatinine Pending
Glucose Pending
Calcium Pending
Vital Signs:
Vital Signs
Temp Pulse Resp BP Pulse Ox
97.6 F 76 16 127/86 97
09/06/24 03:12 09/06/24 03:12 09/06/24 03:12 09/06/24 03:12 09/06/24 03:12
I&O
09/05/24 09/06/24 09/07/24
06:59 06:59 06:59
Intake Total 240 / 240 1380 / 1380
Balance 240 / 240 1380 / 1380
[2024-09-06 07:53] VITALS: BP 115/71
--- NOTE | 2024-09-06 08:11 | W.PN.CD ---
Today's Communication / Plan
-
With negative bubble study
No atrial fibrillation on telemetry or loop recorder interrogation.
Unlikely to be a cardioembolic source of stroke
See note for preoperative risk stratification for possible vascular surgery
We will sign off at this time. Please call with any further questions or concerns
Impression / Plan
-
74-year-old male with a history of hypertension, hyperlipidemia, CAD status post CABG 2016, PAD status post right carotid endarterectomy in 2020 with course complicated by stroke now presenting with recurrent stroke. Cardiology is asked to comment
on possible cardioembolic source of stroke.
TIA/CVA symptoms - CT head/neck 09/02/24 with high-grade stenosis/near complete occlusion of the distal left M1 and left carotid bifurcation dissection extending into the proximal left ICA.
- symptoms resolved, no recurrence.
- ILR in place and no Afib seen since implant 2020.
- interrogation of loop monitor on 09/02/2024 showed no atrial fibrillation. No atrial fibrillation on telemetry
- TTE on 09/25 was unremarkable with negative bubble study
- continue ASA, Plavix.
- pre-op risk assessment, high risk given age/comorbidities. He is able to perform > 4 METS w/o symptoms, so no further cardiac work up beyond bubble TTE 09/05/24.
-Source of CVA unlikely to be cardioembolic given no atrial fibrillation on long-term loop recorder and negative TTE with bubbles (prior negative ANNITA in 2020 as well)
PAD - s/p right CEA 05/2021.
- followed by Dr. Cochran as outpatient.
- continue ASA, Plavix, Zetia.
ILR - implanted 06/2021.
- [employer] LINQ II.
- followed closely in our outpatient device clinic, no Afib seen.
- device interrogation 09/02/2024 with no A-fib
CAD - s/p CABG 2016.
- stable w/o angina.
- last nuclear stress test was 2019 and negative for ischemia.
HTN - stable on meds, continue.
HLD - intolerant to statins.
- on Zetia with LDL 121 from 02/2024.
- Repatha prescribed by Dr. Lo but he cannot afford it.
[facility]
Head and neck CTA 09/02/24 - CTA Head: There is focal high-grade stenosis/near complete occlusion of the distal left M1 segment with immediate reconstitution. Hypoplastic right A1 segment, normal variant. There is atherosclerotic calcifications of
the bilateral petrous, cavernous and paraclinoid segments of the ICAs with resultant multifocal moderate stenosis.
CTA Neck: There is mixed density atherosclerotic plaque of the left carotid bifurcation with associated dissection extending into the proximal left ICA. Atherosclerotic calcifications of the V4 segment of the left vertebral artery with associated
severe stenosis, similar to prior. 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
MA [place] of [place] - Overall stable findings, with atherosclerotic narrowing involving the cavernous carotid arteries, middle cerebral arteries, left intradural vertebral artery, and basilar artery, as described. No occlusion.
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
MRI Small acute cortical infarcts in the distribution of the peripheral posterior left MCA.
Old cerebellar infarcts and small chronic supratentorial lacunar infarcts. Moderate chronic microvascular white matter ischemic disease.
Subjective: Feels well this morning. No cardiovascular complaints. Telemetry notable for sinus rhythm and no arrhythmias.
Physical Exam
Vital Signs/Labs
Vital Signs
Temp Pulse Resp BP Pulse Ox
97.7 F 77 16 115/71 98
09/06/24 07:53 09/06/24 07:53 09/06/24 07:53 09/06/24 07:53 09/06/24 07:53
09/05/24 09/06/24 09/07/24
06:59 06:59 06:59
Actual Weight 62.85 kg
Magnesium 1.8 mg/dl (1.6-2.3) 09/02/24 15:59
Triglycerides 60 mg/dl (10-149) 09/03/24 05:42
LDL Cholesterol, Calc 116 mg/dl 09/03/24 05:42
VLDL Cholesterol, Calc 12 mg/dl (0-30) 09/03/24 05:42
HDL Cholesterol 59 mg/dl 09/03/24 05:42
Physical Exam
Constitutional: No acute distress and Comfortable
Cardiovascular: Rhythm & rate is regular, Pedal edema is absent, JVD pressure is normal, S1S2 is normal and Murmur/rub/gallop absent
Respiratory: Respiratory effort normal and Lungs clear to auscul.
Data Reviewed
-
Date of Service: September 06, 2024
Medical Decision Making: Reviewed Test Results, Independent Historian Assessment, Test Interpretation and Review of Case with other Provider
EKG: Tracing Personally Visualized and interpreted
Echo: Report Reviewed by me
X-Ray/CT/US/MRI/NUC/PET: Report Reviewed by me
Labs: Labs Reviewed by me
[2024-09-06] MEDS: HEPARIN 5000 UNITS SC (08:16)
[2024-09-06] MEDS: ZETIA 10 MG PO (08:16)
[2024-09-06] MEDS: PLAVIX 75 MG PO (08:16)
[2024-09-06] MEDS: ZOLOFT 25 MG PO (08:16)
[2024-09-06 08:30] LABS: Hematocrit 37.5 % (39.0-52.0); Hemoglobin 13.6 g/dL (13.0-18.0); Mean Corp Hgb Conc. 36.3 g/dL (33.0-37.0); Mean Corpuscular Hgb 33.4 pg (27.0-31.0); Mean Corpuscular Volume 92.1 fL (80.0-94.0); Mean Platelet Volume 9.7 fL (7.4-10.4); Platelet Count 251 10^3/uL (130-400); Red Blood Cell Count 4.07 10^6/uL (4.70-6.10); Red Cell Dist. Width 12.7 % (11.5-14.5); White Blood Cell Count 6.9 10^3/uL (4.8-10.8)
--- NOTE | 2024-09-06 08:37 | CM ---
Patient to return to home at discharge corrections caseworker spoke with patient about services and supports in home after discharge patient declined. pre owned sales manager offered to make a referral to the [facility] and patient declined.
Plan; Home no needs.
--- NOTE | 2024-09-06 08:55 | PN.CDI ---
CDI
- -
CDI:
Physician Documentation Request
Admit Date: 09/02/24 17:04
Dear Doctor Chau,
Please review the following and provide your response in the progress notes.
Clinical Indicators:
Height: 6 ft
Weight: 138 lb 8/9 oz
BMI:18.8
Other Clinical Notes: Nutrition note 09/04, ' He states that he lost 10lbs over the past year. This is a 6.3% BW loss over 1 year ...'
If possible, please provide an associated diagnosis related to the abnormal BMI, such as:
BMI < or = to 19
Underweight
Weight Loss
Cachectic
- Other
Use of terms such as suspected, likely, concern for, or probable (associated with a specific diagnosis that is being evaluated, monitored, or treated as if it exists) are acceptable and can be coded in the inpatient setting, when documented at the
time of discharge.
Thank you,
Radha Reyna RN
CDI Specialist
[place] [facility]
Please use your independent medical judgment in providing your response.
[2024-09-06 09:04] LABS: Blood Urea Nitrogen 21 mg/dl (9-20); Calcium 9.3 mg/dl (8.4-10.2); Carbon Dioxide 27 mmol/L (22-30); Chloride 101 mmol/L (98-107); Estimated Creatinine Clearance 56 ml/min; Glucose 89 mg/dl (70-99); Potassium 4.1 mmol/L (3.5-5.1); Sodium 138 mmol/L (135-145); eGFR > 60.00
[2024-09-06 11:13] VITALS: BP 120/83; PULSE 77; O2SAT 97
[2024-09-06 11:15] VITALS: BP 120/83; PULSE 97; O2SAT 97
[2024-09-06 11:39] VITALS: BP 120/83
[2024-09-06] MEDS: FLUAD (65 yr+) 2024-2025 FORMULA 0.5 ML IM (14:19)
== END 2024-09-06 15:08 | disposition home or self-care (01) | DRG 64 ==
LOC: 4 WEST ACU 17:04
PROVIDERS: Registered Nurse; ADMITTING PHYSICIAN Hospitalist; ATTENDING PHYSICIAN Hospitalist; CONSULT PHYSICIAN Psychiatry & Neurology Neurology; CONSULT PHYSICIAN Student in an Organized Health Care Education/Training Program; EMERGENCY PHYSICIAN Student in an Organized Health Care Education/Training Program; FAMILY PHYSICIAN Family Medicine; OTHER PHYSICIAN Nurse Practitioner Acute Care
DX: I63.512 Cerebral infarction due to unspecified occlusion or stenosis of left middle cerebral artery (principal); I77.71 Dissection of carotid artery; N17.9 Acute kidney failure, unspecified; Z68.1 Body mass index [BMI] 19.9 or less, adult; I25.10 Atherosclerotic heart disease of native coronary artery without angina pectoris; I10 Essential (primary) hypertension; R63.6 Underweight; E78.00 Pure hypercholesterolemia, unspecified; I34.0 Nonrheumatic mitral (valve) insufficiency; Z95.1 Presence of aortocoronary bypass graft; Z86.73 Personal history of transient ischemic attack (TIA), and cerebral infarction without residual deficits; Z79.82 Long term (current) use of aspirin
CPT/HCPCS: 70450; 70496; 70498; 70544; 70551; 80048; 80053; 80061; 82962; 83036; 83735; 84443; 84484; 85025; 85027; 85576; 90662; 92507; 92523; 92526; 92610; 93005; 93307; 93880; 96360; 97116; 97161; 97164; 97165; 97166; 97168; 99284; 99285; G0008; Q9967

== ENCOUNTER 2024-12-24 11:32 | Inpatient (IN) | payer MEDICARE, OTHER, SELFPAY ==
[2024-12-24] VITALS (12 sets, daily range): BP systolic 130–187; BP diastolic 75–100; BMI 20.6
--- NOTE | 2024-12-24 07:56 | ED.CVA ---
History of Present Illness
General
Chief Complaint: CVA/TIA Symptoms
Time Seen by Provider: 12/24/24 07:55
Onset of Stroke Symptoms
Onset of symptoms known: No
Time pt last seen normal is known: Yes
Date last time pt seen normal: 12/23/24
Time last time pt seen normal: 21:00
History of Present Illness
History of Present Illness:
TIME OF INITIAL ENCOUNTER:
HPI: Stroke alert. At baseline at 9pm when he went to bed. Woke at 5am, spoke to his demented and he noted slurred speech and was drooling out R side of mouth. Mild to moderate dysarthria, but no aphasia or any other neuro abnormality. On
Plavix, no longer on aspirin nor anticoagulation.
EXAM:
GENERAL: Well appearing in no distress
HEENT: Moist oral mucosa
CARDIOVASCULAR: No murmurs, normal heart rate, regular rhythm, No chest wall tenderness
PULMONARY: No respiratory distress, breath sounds are clear and equal
ABDOMEN: Soft with no peritoneal signs, no tenderness
NEUROLOGIC: Excellent strength all extremities, no coordination deficits, mild to moderate dysarthria noted, no facial asymmetry, normal [id number], no aphasia
PSYCHIATRIC: Appropriate mental status, normal insight and judgement
EXTREMITIES: Nontender, no edema, moves all extremities equally
SKIN: No rash, no lesions
NUMBER AND COMPLEXITY OF PROBLEMS ADDRESSED AT THE ENCOUNTER
� Chronic conditions affecting care: CAD, high blood pressure, hyperlipidemia
� Acute Exacerbation and/or Progression of Chronic Illness: This is an acute but recurring problem
� Differential Diagnosis includes: Recurrence of CVA, hemorrhagic stroke less likely, hypoglycemia
AMOUNT AND/OR COMPLEXITY OF DATA TO BE REVIEWED AND ANALYZED
� I performed an independent evaluation of and my interpretation is:
EKG: Sinus 71, normal axis, nonspecific ST abnormality without significant change from 09/02/2024
CT: CT head negative for acute abnormality�I also reviewed CTA report of head neck by radiologist which shows no acute abnormality
X-rays:
Laboratory Studies: CBC unremarkable, chemistries also relatively unremarkable
Other:
� Review of other/old records: I reviewed records, the patient was seen here with acute left MCA ischemic infarct last September and at that time Dr. Harper recommended Plavix only (had recurring while on DAPT) and at that time
Giovanny recommended consider addition of Brilinta.
� Clinical information was obtained by an independent historian: None needed ( has dementia)
� Prescriptions/Medications Considered but not given:
� Further testing considered but not performed:
RISK OF COMPLICATIONS AND/OR MORBIDITY OR MORTALITY OF PATIENT MANAGEMENT
� Social determinants of health affecting care: Lives at home
� Discussion with other providers: The patient was seen as a stroke alert which was called shortly after my evaluation at approximately 8:[address] Hernandez rapidly evaluated patient.
� Escalation of care including admission/observation vs risk of discharge considered: I reviewed records, the patient is on Plavix only and aspirin had been discontinued. He is also on Zetia.
ANY OTHER UPDATES:
Dr. Hernandez evaluated patient in the ED and recommends admission to the hospital. She recommends against TNK and I agree with this as timing of onset is unclear.
8:55 AM: I notified Dr. Serrato for admission
Past History
Past History
ED Past Medical History: CAD, CVA (Right lentiform infarct November 2018), GERD, HTN, Hypercholesterolemia, Psychiatric (Anxiety/depression) and Other (Neil's esophagus, peptic ulcer disease, chronic back pain)
ED Past Surgical History: Cardiac (CABG 2016, Linq recorder July 01, 2021), Orthopedic (L4-5 laminectomy) and Other (Right CEA, herniorrhaphy)
Social History
Tobacco: Former smoker
Alcohol: None
Drug: None
Personal:
Living: other (With research laboratory manager)
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
Family History
Family History: Other (Noncontributory)
Phy Exam
Physical Exam
Physical Exam:
See HPI
Course
Orders/Labs/Results
Orders:
Orders
12/24/24 07:57
EKG [Electrocardiogram (*1)] Urgent
Reason for Study: Fatigue / Weakness
EKG- Treatment ONCE
12/24/24 08:03
CT HEAD STROKE ALERT W/o Cont Urgent
Comment:
Reason For Exam: acute dysarthria
CT HEAD/NECK ANG STROKE ALERT Urgent
Comment:
Reason For Exam: acute dysarthria
12/24/24 08:05
Basic Metabolic Panel Urgent
Complete Blood Count/With Diff Urgent
12/24/24 11:02
Admit/Transfer Patient As Directed
Co-Sign Provider:
Level of Care: Inpatient admission
Assign to:: Telemetry
Physician / Group: Jeremie
Diagnosis: CVA/TIA
Reason for Telemetry: CVA/TIA
Date to Stop Telemetry: 12/27/24
Time to Stop Telemetry: 11:00
Reason for Hospitalization: Recurrent TIA /Strokes and now with another TIA vs CVA
Expected length of stay greater than two midnights?: Yes
ELOS- Estimated Length of Stay in days: 3
I certify the patient meets the requirements for IP care: Yes
PRN Pain Medication Management As Directed
May give lesser potent ordered pain med per pt: Yes
preference::
Protocol:: Medication orders for pain may be administered in a
manner that supports deferring to patient preference
when the pt is:
- Requesting an ordered lesser potent pain medication.
Least to most potent pain medications are defined
as: acetaminophen < NSAID < tramadol < opioids
(morphine, oxycodone, hydromorphone).
- Requesting a lesser dose of the same medication IF
ORDERED.
- Requesting a less intrusive route of administration
if both routes are prescribed by the provider (PO <
IV).
12/24/24 11:05
Code Status As Directed
Resuscitation Status: Full Code
12/24/24 11:34
Acetaminophen [Tylenol/Feverall] 650 mg RECTAL Q4HPRN PRN
Acetaminophen [Tylenol] 650 mg PO Q4HPRN PRN
HydrALAZINE [Apresoline] 5 mg IV Q4HPRN PRN
12/24/24 11:34
Case Management Consult ONCE
Case Management Consult: Discharge Planning
Comment: stroke/tia
DIETARY CONSULT Routine
Reason for Consult: stroke/TIA
NEUROLOGY CONSULT Urgent
Consulting Provider: Rachel Hernandez
Was physician already notified: Yes
Reason for consult: TIA vs CVA
Social Work Instructor Urgent
MR Brain Without Contrast Routine
Comment:
Reason For Exam: stroke/TIA
Recent pill cam endoscopy?: No
Activity As Directed
Activity Level: As Tolerated
NIH Stroke Scale As Directed
Directions: Per protocol
Comment: every shift and with any change in condition or mental status
Neurological Checks As Directed
Frequency: q4h
Additional Instructions:: q4h x 24h upon admission to the floor, then qshift & with any change in condition
and mental status
Patient Education As Directed
Type: Stroke education packet
Comment: provide to patient and family
Pneumatic Compression Sleeves As Directed
Type: Knee high
Swallow Screening CVA/TIA ONLY As Directed
Comment: NPO until swallowing screening completed
If patient FAILS swallow screening:: NPO, Speech Therapy consult, Aspiration Precautions
If patient PASSES swallow screening, diet:: Cholesterol Lowering
Vital Signs As Directed
Frequency: Per unit guidelines
Ot Eval And Treat Routine
Pt Eval And Treat Routine
Activity Level: As Tolerated
Speech Therapy Eval & Treat Routine
US Cerebrovascular Routine
Comment:
Reason For Exam: stroke/TIA
DX Deep Vein Thrombosis Video Routine
12/24/24 12:00
Clopidogrel Bisulfate [Plavix] 75 mg PO DAILY
Ezetimibe [Zetia] 10 mg PO DAILY
Sertraline HCl [Zoloft] 25 mg PO DAILY
12/24/24 22:00
Lisinopril [Zestril] 40 mg PO HS
12/25/24 06:00
Cardiovascular Evaluation IN AM
12/27/24 11:00
DC Protocol for Telemetry ONCE
Abnormal Lab Results
12/24/24
08:05
RBC 4.01 L 10^6/uL
(4.70-6.10)
MCV 98.5 H fL
(80.0-94.0)
MCH 33.2 H pg
(27.0-31.0)
Carbon Dioxide 32 H mmol/L
(22-30)
BUN 21 H mg/dl
(9-20)
12/24/24 08:05
12/24/24 08:05
Vital Signs
Initial and Last Documented VS:
Initial Vital Signs
Temp Pulse Resp Pulse Ox
36.4 C 74 16 99
12/24/24 07:53 12/24/24 07:53 12/24/24 07:53 12/24/24 07:53
Last Documented Vital Signs
Temp Pulse Resp BP Pulse Ox
36.4 C 66 15 158/94 99
12/24/24 07:53 12/24/24 11:25 12/24/24 11:25 12/24/24 11:25 12/24/24 11:15
*Critical Care Note
Total Time (30-74mins, 75-104mins- exclusive of procedures): Not Applicable
ED Attending Note
-
Portions of this chart may have been created with voice recognition software.� Occasional wrong word or��sound alike� substitutions may have occurred due to the inherent limitations of voice recognition software.
Discharge Plan
Departure
Patient Disposition: Admit
Date of Disposition: 12/24/24
Time of Disposition: 08:53
Presentation/result/management discussed w/ accepting MD/DO: Hospitalist
Discharge Problem:
Acute CVA (cerebrovascular accident)
Interventions
Interventions:
*Risk Screen - Suicide Last Done: 12/24/24 07:53
*General Assessment Last Done: 12/24/24 07:53
*Neglect/Abuse Screening Last Done: 12/24/24 07:53
ED- Fall Risk Assessment Last Done: 12/24/24 08:42
*ED COVID-19 Vaccine History Last Done: 12/24/24 08:50
ED- Pulmonary Assessment Last Done: 12/24/24 08:42
ED- Neurological Assessment Last Done: 12/24/24 08:42
ED- Cardiac Assessment Last Done: 12/24/24 08:42
ED Swallowing Screen Last Done: 12/24/24 08:42
[2024-12-24 08:12] LABS: % Basophils 0.9 % (0-2); % Eosinophils 2.7 % (0-6); % Immature Granulocytes 0.3 % (0-0.5); % Monocytes 8.3 % (1.7-9.3); % Neutrophils 60.8 % (42.2-75.2); Absolute Basophils 0.1 10^3/uL (0-0.2); Absolute Eosinophils 0.2 10^3/uL (0-0.7); Absolute Lymphocytes 1.8 10^3/uL (1.2-3.4); Absolute Monocytes 0.6 10^3/uL (0.1-0.6); Absolute Neutrophils 4.1 10^3/uL (1.4-6.5); Hematocrit 39.5 % (39.0-52.0); Hemoglobin 13.3 g/dL (13.0-18.0); Mean Corp Hgb Conc. 33.7 g/dL (33.0-37.0); Mean Corpuscular Hgb 33.2 pg (27.0-31.0); Mean Corpuscular Volume 98.5 fL (80.0-94.0); Mean Platelet Volume 9.3 fL (7.4-10.4); Nucleated Red Blood Cells % 0 % (-); Platelet Count 225 10^3/uL (130-400); Red Blood Cell Count 4.01 10^6/uL (4.70-6.10); Red Cell Dist. Width 13.4 % (11.5-14.5); White Blood Cell Count 6.7 10^3/uL (4.8-10.8)
[2024-12-24 08:25] LABS: Blood Urea Nitrogen 21 mg/dl (9-20); Carbon Dioxide 32 mmol/L (22-30); Chloride 104 mmol/L (98-107); Glucose 93 mg/dl (70-99); Potassium 4.4 mmol/L (3.5-5.1); Sodium 139 mmol/L (135-145); eGFR > 60.00
--- NOTE | 2024-12-24 08:30 | CON.NEURO ---
Consultation
Order
Date of Consultation: 12/24/24
Requesting Provider: Giuseppe Barrett DO
Reason for Consult: Stroke alert
Called in at 8:04 AM
Neurology Consultation Note.
HPI: This is a 74-year-old left-handed man who presented to [facility] on 12/24/2024 with dysarthria and sensory deficits. According to the patient he woke up today at 5:00 AM with drooling, right facial numbness, and a sensation of
tongue thickness, describing it as feeling like he had a cut. The patient also experienced mild numbness in his right hand but maintained functionality. He was able to walk his dog for approximately 30 minutes with no change in balance and strength.
The patient denies any associated headaches, change in vision, abnormal movements or fever.
Mr. Jones admits to skipping his medications yesterday unintentionally.
Patient was seen by neurology service in September 2024 for and diagnosed with embolic left MCA territory stroke as well as Intra/extracranial atherosclerosis(including near occlusion of L M1 and moderate L ICA stenosis). He was discharged on Plavix
70 mg once a day.
ER VS: 165/79, 74, afebrile
EKG: NSR, QTc Int : 419 ms
Labs: normal WBC, Na, Cr, Pl
CT head wo contrast-No acute intracranial pathology. Mild atrophy. Mild periventricular small vessel ischemic disease.Old left caudate nucleus lacunar infarct. Small old cerebellar infarcts.
Platelet function(09/03/2024, 02/26/21, 11/08/18) -no evidence of platelet dysfunction.
Pl P2Y12 React(09/03/24�)-169-positive for P2Y12 inhibitor effect.
Pl P2Y12 React(11/08/18�)-232(values greater than 194 PRU indicate insufficient inhibitor effect)
PMH: L ICA stenosis, embolic strokes including left cerebellar(2021), CAD, HTN, DLP, CAITLIN, Neil's Esophagus
PSH: right CEA, LINQ( 07/01/2021), CABG, repair of incarcerated left inguinal hernia; l4-l5 laminectomy
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
All: statins, Penicillins
ROS: Positive for weight loss
Neurological: Positive for dysarthria and right hand numbness
General: Well developed. In no acute distress.
Cardio: Regular rate and rhythm without murmur. Extremities are without cyanosis or edema.
Neuro:
Mental Status: Alert, oriented to person, place. Normal attention and recall. Good fund of knowledge. Follows complex requests across the midline. Slow speech. Comprehension, naming, and repetition intact.
Cranial Nerves: . Pupils are equally round and reactive to light. EOMs full. Visual hernandez full to confrontation. No ptosis. No nystagmus. V1-V3 intact to light touch and pinprick bilaterally, symmetric. Face symmetric. Normal hearing AU.
The palate elevated well. SCMs and traps 5/5. Tongue midline. Mild dysarthria.
Motor: Normal bulk and tone. No pronator or arm drift. Strength 5/5 throughout. No clonus.
Sensory: no extinction to DSS
Coordination: Reduced fine finger movements on the right, no dysmetria.
Gait: deferred
Bl pes cavus, hammer toes
Assessment and Plan:
I. Acute L MCA territory syndrome not a candidate for IV TNK due to timing of the symptom onset.
II. Subacute L MCA territory stroke(09/2024)
III. 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 Statin intolerance
IV. Evidence of Aspirin inefficacy and equivocal data for Plavix effectiveness.
V. Chronic moderate L ICA stenosis
. History of chronic bihemispheric embolic infarcts.
VII. Medication nonadherence
- Telemetry monitoring.
- Avoid cerebral hypoperfusion
- Continue Plavix 75 mg once a day with a plan to start Ticagrelor 180 mg once followed by 90 mg twice daily after brain MRI is completed
- LINQ data review (projected LINQ battery life depends on the model/kim optimization)
- Outpatient neuropsychological evaluation
- DVT prophylaxis.
I personally reviewed all radiology and labs along with past medical records pertinent to current medical problems. Total time spent in patient care is 61 minutes.
Thank you for allowing us to participate in the care of this patient. We will continue to follow. Please do not hesitate to contact us with any questions or concerns.
Subjective/Objective
Subjective Data
Date of Service: December 24, 2024
Objective Data
Vital Signs
Temp Pulse Resp BP Pulse Ox
36.4 C 74 16 165/79 99
12/24/24 07:53 12/24/24 07:53 12/24/24 07:53 12/24/24 07:57 12/24/24 07:53
Lab Results
12/24/24 08:05
12/24/24 08:05
Sodium 139 mmol/L (135-145) 12/24/24 08:05
Potassium 4.4 mmol/L (3.5-5.1) 12/24/24 08:05
BUN 21 mg/dl (9-20) H 12/24/24 08:05
Glucose 93 mg/dl (70-99) 12/24/24 08:05
Calcium 9.0 mg/dl (8.4-10.2) 12/24/24 08:05
Patient Allergies
Penicillins Allergy (Verified 09/02/24 15:45)
Swelling, hives, rash
atorvastatin [From Lipitor] Adverse Reaction (Verified 09/02/24 15:45)
Myalgias
rosuvastatin [From Crestor] Adverse Reaction (Verified 09/02/24 15:45)
pain everywhere
Medications
-
Home Medications
�Medication �Instructions �Recorded
clopidogrel 75 mg tablet (Plavix) 75 mg PO DAILY Blood clot 05/09/21
prevention/tx
ezetimibe 10 mg tablet (Zetia) 10 mg PO DAILY 01/07/23
hydrochlorothiazide 25 mg tablet 25 mg PO DAILY 01/07/23
lisinopril 40 mg tablet 40 mg PO HS 01/07/23
sertraline 25 mg tablet 25 mg PO DAILY 01/07/23
Tamar Ranjit 1 tab PO DAILYPRN PRN supplement 09/01/24
dandelion root 525 mg capsule 525 mg PO DAILYPRN PRN supplement 09/01/24
nifedipine 30 mg tablet,extended 30 mg PO HS 09/01/24
release
therapeutic multivitamin 1 tab PO DAILY 09/01/24
Vital Signs and Labs
-
Vital Signs and Labs:
Vital Signs
Temp Pulse Resp BP Pulse Ox
36.4 C 74 16 165/79 99
12/24/24 07:53 12/24/24 07:53 12/24/24 07:53 12/24/24 07:57 12/24/24 07:53
Lab Results
12/24/24 08:05
12/24/24 08:05
Sodium 139 mmol/L (135-145) 12/24/24 08:05
Potassium 4.4 mmol/L (3.5-5.1) 12/24/24 08:05
BUN 21 mg/dl (9-20) H 12/24/24 08:05
Glucose 93 mg/dl (70-99) 12/24/24 08:05
Calcium 9.0 mg/dl (8.4-10.2) 12/24/24 08:05
Home Medications
-
Home Medications
clopidogrel 75 mg tablet (Plavix) 75 mg PO DAILY Blood clot prevention/tx 05/09/21
ezetimibe 10 mg tablet (Zetia) 10 mg PO DAILY 01/07/23
hydrochlorothiazide 25 mg tablet 25 mg PO DAILY 01/07/23
lisinopril 40 mg tablet 40 mg PO HS 01/07/23
sertraline 25 mg tablet 25 mg PO DAILY 01/07/23
Lions Ranjit 1 tab PO DAILYPRN PRN supplement 09/01/24
dandelion root 525 mg capsule 525 mg PO DAILYPRN PRN supplement 09/01/24
nifedipine 30 mg tablet,extended release 30 mg PO HS 09/01/24
therapeutic multivitamin 1 tab PO DAILY 09/01/24
--- NOTE | 2024-12-24 11:08 | HPS.HSE ---
Family Physician
-
Family Physician: Owen Portillo
Chief Complaint
-
Dysarthria and right-sided facial droop
History of Present Illness
Patient with recurrent TIAs and strokes presents with acute onset of speech impairment. He was more delivery of speech was dysarthric. Able to understand the words and deliver the words correctly. It all started 5 AM when he woke up. He also had
right facial droop and saliva was escaping from his right angle of the mouth.
Still dysarthric but improved right facial droop.
No headache. No vision disturbance. No weakness in the upper and lower extremity. No balance issue.
Patient says he had multiple episodes of CVA/TIA-he remembers of at least 9 episodes. He was hearing end of August into first week of September with another episode.
Since discharge and September 02 week last year denies any intermittent symptoms. No changes with the medication. He is compliant with his medication. Cannot afford Repatha due to cost issues.
Medical History
Past Medical History
Past Medical History: Reports Other
Additional Past Medical History:
GERD
dyslipidemia
CAD
HTN
carotid stenosis bilateral
anxiety
depression
PUD
stroke
hernia
Past Surgical History: Reports Other
Additional Past Surgical History:
CABG
right CEA
left inguinal hernia repair
Social History
Tobacco: Non-smoker
Alcohol: None
Drug: None
Personal:
Living: With Family
Family History
Family History: Not pertinent
Allergies / Home Medications
Allergies reflects when Allergies were last updated in [facility].
Home Medications with original date entered in [facility]
Allergy/Medication List:
Allergies
Allergy/AdvReac Type Severity Reaction Status Date / Time
Penicillins Allergy Swelling, Verified 09/02/24 15:45
hives, rash
atorvastatin [From Lipitor] AdvReac Myalgias Verified 09/02/24 15:45
rosuvastatin [From Crestor] AdvReac pain Verified 09/02/24 15:45
everywhere
Home Medications
clopidogrel 75 mg tablet (Plavix) 75 mg PO DAILY Blood clot prevention/tx 05/09/21
ezetimibe 10 mg tablet (Zetia) 10 mg PO DAILY 01/07/23
hydrochlorothiazide 25 mg tablet 25 mg PO DAILY 01/07/23
lisinopril 40 mg tablet 40 mg PO HS 01/07/23
sertraline 25 mg tablet 25 mg PO DAILY 01/07/23
Lions Ranjit 1 tab PO DAILYPRN PRN supplement 09/01/24
aspirin 81 mg tablet,delayed release 81 mg PO DAILY 09/01/24
dandelion root 525 mg capsule 525 mg PO DAILYPRN PRN supplement 09/01/24
nifedipine 30 mg tablet,extended release 30 mg PO HS 09/01/24
therapeutic multivitamin 1 tab PO DAILY 09/01/24
Review of Systems
-
A 12 point ROS was completed and negative except as noted: Yes
Physical Exam
Vital Signs
Vital Signs
Temp Pulse Resp BP Pulse Ox
97.6 F 74 29 169/81 99
12/24/24 07:53 12/24/24 09:15 12/24/24 09:15 12/24/24 09:00 12/24/24 09:15
Physical Exam
General: No Apparent Distress
Respiratory: Clear and Accessory Resp Muscle Use; No Non Labored Respirations
Cardiac: S1/S2, Regular Rhythm and Carotid Pulses (Bilateral carotid bruit more prominent on the left.)
Neuro: AO x 3, No Motor Deficits and Slurred Speech (No aphasia); No Facial Droop (Not obvious during my exam)
Psych: Calm
Laboratory Results
-
12/24/24 08:05
12/24/24 08:05
Data Reviewed
-
Lab Data: Labs Reviewed by me
Impression/Plan
-
Acute onset of dysarthria and right facial droop concerning for TIA/CVA. No motor deficit. No obvious expressive or receptive aphasia. ER discussed with neurology who wanted him to be admitted for further workup.
Admit to telemetry.
Continue with his Plavix and Zetia. Explore the cost issues of Repatha.Check lipid panel.
Redo imaging of the carotids with persistent bruit on the left. He had 50 to 69% stenosis on the left. He had a prior right CEA without further hemodynamically significant stenosis.
Consult neurology.
Obtain MRI of the brain without contrast.
Consider Aggrenox.
Had a prior Linq which did not show any evidence of A-fib.
No evidence of cardiac shunting by agitated saline bubble study September 2024
Continue blood pressure management after permissive hypertension for 24 hours.
Hypertension-allow permissive hypertension for 24 hours. Use hydralazine as needed for now.
Full code
[2024-12-24] MEDS: PLAVIX 75 MG PO (11:50)
[2024-12-24] MEDS: ZOLOFT 25 MG PO (11:50)
[2024-12-24] MEDS: ZETIA 10 MG PO (11:50)
[2024-12-24] MEDS: ZESTRIL PO (22:41)
[2024-12-25 03:38] VITALS: BP 118/74
[2024-12-25 07:58] VITALS: BP 114/66
--- NOTE | 2024-12-25 08:10 | W.PN.NEURO.1 ---
Today's Communication / Plan
-
.
Subjective/Objective
Subjective Data
Date of Service: December 25, 2024
Neurology follow-up note.
Mr. Jones states that his right hand symptoms completely resolved. No reports of headache, change in vision since admission.
Brain MRI without shahbaz (12/24/2024)�acute left MCA distribution infarcts.
CTA head/neck(12/24/2024)-diminished flow in the distal left M1 segment(improved), stable left proximal internal carotid artery dissection.
LDL 117.
Platelet function(09/03/2024, 02/26/21, 11/08/18) -no evidence of platelet dysfunction.
Pl P2Y12 React(09/03/24�)-169-positive for P2Y12 inhibitor effect.
Pl P2Y12 React(11/08/18�)-232(values greater than 194 PRU indicate insufficient inhibitor effect)
PMH: L ICA stenosis, embolic strokes including left cerebellar(2021), CAD, HTN, DLP, SHAHBAZ, Neil's Esophagus
PSH: right CEA, LINQ( 07/01/2021), CABG, repair of incarcerated left inguinal hernia; l4-l5 laminectomy
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
All: statins, Penicillins
ROS: Positive for weight loss
Neurological: Negative for motor, sensory or visual deficits.
General: Well developed. In no acute distress.
Cardio: Regular rate and rhythm without murmur. Extremities are without cyanosis or edema.
Neuro:
Mental Status: Alert, oriented to person, place. Normal attention and recall. Good fund of knowledge. Follows complex requests across the midline. Slow speech. Comprehension, naming, and repetition intact.
Cranial Nerves: . Pupils are equally round and reactive to light. EOMs full. Visual hernandez full to confrontation. No ptosis. No nystagmus. V1-V3 intact to light touch and pinprick bilaterally, symmetric. Face symmetric. Normal hearing AU.
The palate elevated well. SCMs and traps 5/5. Tongue midline. No dysarthria.
Motor: Normal bulk and tone. No pronator or arm drift. Strength 5/5 throughout. No clonus.
Sensory: no extinction to DSS
Coordination: normal FFM, no dysmetria.
Gait: deferred
Bl pes cavus, hammer toes
Assessment and Plan:
I. Acute L MCA territory stroke. Likely etiology-atherosclerotic intracranial large artery stenosis, less likely from chronic L ICA dissection or PA-Fib given recurrent embolic infarcts in the same vascular territory.
II. Medication nonadherence
III. Chronic Left ICA dissection
IV. 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 Statin intolerance. �There is high-quality evidence that intracranial artery angioplasty with stenting leads to harm. Submaximal balloon angioplasty without stenting is an
alternative procedure that employs slow expansion of an undersized balloon to limit periprocedural complications.
V. Subacute-chronic L MCA territory stroke(09/2024)
. Evidence of Aspirin inefficacy and equivocal data for Plavix effectiveness.
VII. Chronic moderate L ICA stenosis
VIII. History of chronic bihemispheric embolic infarcts.
- Telemetry monitoring.
- Avoid cerebral hypoperfusion
- Start Ticagrelor 180 mg once followed by 90 mg twice daily
- Outpatient neuropsychological evaluation
- DVT prophylaxis.
- OP Neurology, vascular surgery and cardiology follow.
I personally reviewed all radiology and labs along with past medical records pertinent to current medical problems. Total time spent in patient care is 35 minutes.
Thank you for allowing us to participate in the care of this patient. Please do not hesitate to contact us with any questions or concerns.
Objective Data
Vital Signs
Temp Pulse Resp BP Pulse Ox
36.4 C 70 18 114/66 100
12/25/24 07:58 12/25/24 07:58 12/25/24 07:58 12/25/24 07:58 12/25/24 07:58
Lab Results
12/24/24 08:05
12/24/24 08:05
Sodium 139 mmol/L (135-145) 12/24/24 08:05
Potassium 4.4 mmol/L (3.5-5.1) 12/24/24 08:05
BUN 21 mg/dl (9-20) H 12/24/24 08:05
Glucose 93 mg/dl (70-99) 12/24/24 08:05
Calcium 9.0 mg/dl (8.4-10.2) 12/24/24 08:05
Patient Allergies
Penicillins Allergy (Verified 09/02/24 15:45)
Swelling, hives, rash
atorvastatin [From Lipitor] Adverse Reaction (Verified 09/02/24 15:45)
Myalgias
rosuvastatin [From Crestor] Adverse Reaction (Verified 09/02/24 15:45)
pain everywhere
Vital Signs and Labs
-
Vital Signs and Labs:
Vital Signs
Temp Pulse Resp BP Pulse Ox
36.4 C 70 18 114/66 100
12/25/24 07:58 12/25/24 07:58 12/25/24 07:58 12/25/24 07:58 12/25/24 07:58
Lab Results
12/24/24 08:05
12/24/24 08:05
Sodium 139 mmol/L (135-145) 12/24/24 08:05
Potassium 4.4 mmol/L (3.5-5.1) 12/24/24 08:05
BUN 21 mg/dl (9-20) H 12/24/24 08:05
Glucose 93 mg/dl (70-99) 12/24/24 08:05
Calcium 9.0 mg/dl (8.4-10.2) 12/24/24 08:05
Medications
-
Medications:
Generic Name Dose Route Start Last Admin
Trade Name Freq PRN Reason Stop Dose Admin
Acetaminophen 650 mg 12/24/24 11:34
Acetaminophen 650 Mg Rectal Suppository RECTAL 01/21/25 11:33
Q4HPRN PRN
VARGAS, mild pain, or temp >100.4F
Acetaminophen 650 mg 12/24/24 11:34
Acetaminophen 325 Mg Tablet PO 01/21/25 11:33
Q4HPRN PRN
VARGAS, mild pain, or temp >100.4F
Clopidogrel Bisulfate 75 mg 12/24/24 12:00 12/24/24 11:50
Clopidogrel 75 Mg Tablet PO 01/21/25 11:59 75 mg
DAILY TORSTEN Administration
Ezetimibe 10 mg 12/24/24 12:00 12/24/24 11:50
Ezetimibe (Zetia) 10 Mg Tablet PO 01/21/25 11:59 10 mg
DAILY TORSTEN Administration
Hydralazine HCl 5 mg 12/24/24 11:34
Hydralazine 20 Mg/Ml Vial IV 01/21/25 11:33
Q4HPRN PRN
sbp>180 or DBP>110
Lisinopril 40 mg 12/24/24 22:00 12/24/24 22:41
Lisinopril 20 Mg Tablet PO 01/21/25 21:59 Not Given
HS TORSTEN
Sertraline HCl 25 mg 12/24/24 12:00 12/24/24 11:50
Sertraline 25 Mg Tablet PO 01/21/25 11:59 25 mg
DAILY TORSTEN Administration
Sodium Chloride 0 flush 12/24/24 12:00
Sodium Chloride 0.9% (Flush) Syringe IV 01/21/25 11:59
PER PROTOCOL TORSTEN
Home Medications
-
Home Medications
clopidogrel 75 mg tablet (Plavix) 75 mg PO DAILY Blood clot prevention/tx 05/09/21
ezetimibe 10 mg tablet (Zetia) 10 mg PO DAILY 01/07/23
hydrochlorothiazide 25 mg tablet 25 mg PO DAILY 01/07/23
lisinopril 40 mg tablet 40 mg PO HS 01/07/23
sertraline 25 mg tablet 25 mg PO DAILY 01/07/23
Lions Ranjit 1 tab PO DAILYPRN PRN supplement 09/01/24
dandelion root 525 mg capsule 525 mg PO DAILYPRN PRN supplement 09/01/24
nifedipine 30 mg tablet,extended release 30 mg PO HS 09/01/24
therapeutic multivitamin 1 tab PO DAILY 09/01/24
[2024-12-25 08:33] LABS: HDL Cholesterol 60 mg/dl; LDL Cholesterol, Calculated 117 mg/dl; Total Cholesterol 192 mg/dl (50-199); Triglyceride 79 mg/dl (10-149); Very Low Density Lipoprotein 15 mg/dl (0-30)
[2024-12-25] MEDS: ZETIA 10 MG PO (08:37)
[2024-12-25] MEDS: FLUSH (NSS) 1 FLUSH IV (08:37)
[2024-12-25] MEDS: PLAVIX 75 MG PO (08:37)
[2024-12-25] MEDS: ZOLOFT 25 MG PO (08:37)
--- NOTE | 2024-12-25 09:28 | CM ---
Patient seen at bedside.
IA completed
CM consult completed
Await PT/OT/ST eval's
Patient lives with in a 3 story home, 1 step to enter, flight stairs to bed/bath
PLOF: Independent, uses no assistive device
Denies DME
Denies VN/has had cardiac outpatient rehab in 2017
Denies insecurities
PCP: Owen Portillo
Pharmacy: [facility]
PLAN: to be determined, Await PT/OT/ST evals
--- NOTE | 2024-12-25 11:08 | W.PN.HOSP.TC ---
Today's Communication/Plan
-
Follow ultrasound of the carotids
Follow further neurological recommendations
Await PT/OT eval to be complete.
Assessment / Plan
Assessment / Plan
Acute onset of dysarthria and right facial droop sec to acute cerebral ischemic infarct. No motor deficit. No obvious expressive or receptive aphasia. [place] on adx that he is not a candidate for tPA.
AL ruled send an acute ischemic infarct in the left frontal and left parietal area. He also has evidence of chronic infarcts in other vascular territories all concerning for embolic infarcts. He is also having changes of amyloid angiopathy on MRI
of the brain.
Continue with his Plavix and Zetia. Explore the cost issues of Repatha.LDL 117 about the goal range.
Redo imaging of the carotids with persistent bruit on the left. He had 50 to 69% stenosis on the left. He had a prior right CEA without further hemodynamically significant stenosis.
Appreciate neurology input-planning on to change from Plavix to ticagrelor.
Had a prior Linq check which did not show any evidence of A-fib. Patient in sinus rhythm
No evidence of cardiac shunting by agitated saline bubble study September 2024
Continue blood pressure management after permissive hypertension for 24 hours.
Hypertension-under goal. Currently on his lisinopril alone which is keeping the blood pressure under goal. He is also on hydrochlorothiazide and nifedipine which are on hold.
Full code
Anticipated Discharge: Within 24 hours
Subjective/Interval History
-
Date of Service: December 25, 2024
Patient feels all his symptoms have resolved. Denies any speech disturbance. Does not feel any disturbance with his right side of the face neither sensory nor any droop.
No new symptoms.
Objective Data
-
Vital Signs:
Vital Signs
Temp Pulse Resp BP Pulse Ox
97.5 F 70 18 114/66 100
12/25/24 07:58 12/25/24 07:58 12/25/24 07:58 12/25/24 07:58 12/25/24 08:35
Review of Systems
-
Respiratory: Denies Trouble Breathing
Cardiac: Denies Chest Pain or Palpitations
Abdomen/GI: Denies Abdominal Pain, Nausea or Vomiting
Neuro: Denies Dizzy
Physical Exam
-
General: Comfortable
Respiratory: Non Labored Respirations; Negative Accessory Resp Muscle Use
Cardiac: Regular Rhythm (SR on monitor) and S1/S2; Negative Tachycardic
Neuro: AO x 3 and No Motor Deficits; Negative Slurred Speech or Facial Droop
Psych: Calm; Negative Confused
Data Reviewed
-
Labs: Labs Reviewed by me
--- NOTE | 2024-12-25 11:23 | PTOTSP ---
SPEECH THERAPY SWALLOW EVALUATION:
Patient exhibits grossly functional oropharyngeal swallow at this time. History of esophageal dysphagia which patient reported is well controlled. Patient remains at risk for dysphagia given acute/chronic CVAs. Recommend continue Regular texture
solids, thin liquids. Medications whole with liquid as best tolerated. General aspiration precautions. ST to follow briefly to ensure adequate diet tolerance.
Patient exhibited grossly functional speech, expressive/receptive language, and cognitive communication skills during informal assessment. Patient reported he feels '100%' at baseline level of functioning. Recommend ST to follow for full
speech/language/cognitive communication assessment given acute CVAs.
RECOMMEND:
1) Regular texture diet, thin liquids
2) Medications whole with liquid as best tolerated
3) General aspiration precautions
4) ST to follow for full speech/language/cognitive communication assessment and swallow follow up
[2024-12-25 12:05] VITALS: BP 147/85
[2024-12-25 15:49] VITALS: BP 133/75
--- NOTE | 2024-12-25 16:08 | PTCARENOTE ---
Pt AAO x3, DE LA PAZ well, ambulatory in room/to BR; no c/o weakness/dizziness. NIHSS 1; pt occ has very slight word slurring of some words when reading sentences. VSS. Telemetry:NSR. On room air- pulse ox 98%, no SOB noted. Abd soft, abhi PO well, no
dysphagia noted. Voiding in BR without difficulty. Resting in bed at present, no c/o . Will continue to monitor.
[2024-12-25 19:23] VITALS: BP 150/74
[2024-12-25] MEDS: ZESTRIL 40 MG PO (21:06)
[2024-12-25 23:12] VITALS: BP 128/64
[2024-12-26 03:52] VITALS: BP 112/62
[2024-12-26 07:35] VITALS: BP 115/61
[2024-12-26] MEDS: ZOLOFT 25 MG PO (08:09)
[2024-12-26] MEDS: ZETIA 10 MG PO (08:09)
--- NOTE | 2024-12-26 10:48 | CM ---
Addendum entered by Radha Martin RN 12/26/24 15:44:
Spoke with pt he said he is ready for discharge.
IMM reviewed signed on chart.
Pt called friend Reza to drive him home.
Original Note:
PT OT indicated pt no skilled needs.
Pt had cardiac out pt PT in past.
CM will continue to assess and assist in dc planning .
Plan Home no anticipated needs
[2024-12-26 11:10] VITALS: BP 129/68
[2024-12-26] MEDS: BRILINTA 180 MG PO (11:24)
[2024-12-26 15:16] VITALS: BP 119/70
--- NOTE | 2024-12-26 15:34 | W.DCSUMMARY ---
Discharge Summary
Discharge Data
Date of Admission: 12/24/24
Date of Discharge: 12/26/24
-
Pending Results: No
Hospital Course
Mr. Jones is a 74-year-old male with a medical history of recurrent TIAs and CVAs (on Plavix), carotid artery disease (status post right CEA), and hypertension who presented with acute onset dysarthria and right facial droop. MRI showed acute
ischemic infarct involving left frontal and left parietal lobes. He had no evidence of arrhythmia on prior cardiac monitoring. Echocardiogram September 2024 showed no evidence of qbqug-vx-wuvl shunting. He was evaluated by neurology during this
admission, who recommended transitioning Plavix to Brilinta considering his recurrent CVA despite being on Plavix. Carotid Dopplers showed widely patent right carotid artery and left carotid artery with 50 to 69% stenosis which is only slightly
progressed compared to previous from 06/27/2022. He was evaluated by PT/OT and found to have no skilled needs. He will be discharged to home with a prescription for Brilinta. His blood pressure has been treated with his home dose of lisinopril 40
mg at bedtime while inpatient. His home hydralazine and nifedipine were held due to well-controlled blood pressure on lisinopril alone. He should follow-up with his primary care physician for ongoing blood pressure monitoring and adjustments to
his antihypertensive regimen as needed. He will also need outpatient follow-up with neurology, vascular surgery, and cardiology. Neurology recommends outpatient neuropsychological evaluation.
Gen-AAOx3, NAD
HEENT-NC, AT, anicteric, clear oral mm
Neck-supple
CV-reg, no M, +S1/S2
Lungs-clear B/L
Abd-soft, NT, ND
Musculoskeletal-no edema, no deformity
Skin-warm and dry
Neuro-grossly non-focal
Psych-calm, cooperative
Discharge Plan
-
Patient Disposition: Home (Routine Discharge)
Discharge Diagnosis/Procedures: Acute CVA
Diet: No restrictions
Activity: As tolerated
Activity Restrictions/Additional Instructions:
Mr. Jones is a 74-year-old male with a medical history of recurrent TIAs and CVAs (on Plavix), carotid artery disease (status post right CEA), and hypertension who presented with acute onset dysarthria and right facial droop. MRI showed acute
ischemic infarct involving left frontal and left parietal lobes. He had no evidence of arrhythmia on prior cardiac monitoring. Echocardiogram September 2024 showed no evidence of [id number] shunting. He was evaluated by neurology during this
admission, who recommended transitioning Plavix to Brilinta considering his recurrent CVA despite being on Plavix. Carotid Dopplers showed widely patent right carotid artery and left carotid artery with 50 to 69% stenosis which is only slightly
progressed compared to previous from 06/27/2022. He was evaluated by PT/OT and found to have no skilled needs. He will be discharged to home with a prescription for Brilinta. His blood pressure has been treated with his home dose of lisinopril 40
mg at bedtime while inpatient. His home hydralazine and nifedipine were held due to well-controlled blood pressure on lisinopril alone. He should follow-up with his primary care physician for ongoing blood pressure monitoring and adjustments to
his antihypertensive regimen as needed. He will also need outpatient follow-up with neurology, vascular surgery, and cardiology. Neurology recommends outpatient neuropsychological evaluation.
Referrals:
Rachel Hernandez MD [Active] -
Owen Portillo DO [Family Provider] -
Prescriptions:
New
Brilinta 90 mg tablet
90 mg PO BID 30 Days Qty: 60 2RF
Continued
sertraline 25 mg Tablet
25 mg PO DAILY
lisinopril 40 mg Tablet
40 mg PO HS
ezetimibe [Zetia] 10 mg Tablet
10 mg PO DAILY
therapeutic multivitamin Tablet
1 tab PO DAILY
dandelion root 525 mg Capsule
525 mg PO DAILYPRN PRN (Reason: supplement)
Lions Ranjit
1 tab PO DAILYPRN PRN (Reason: supplement)
Held
hydrochlorothiazide 25 mg Tablet
25 mg PO DAILY
Hold Instructions: Until outpatient follow-up with PCP for blood pressure checks
nifedipine 30 mg tablet extended release
30 mg PO HS
Hold Instructions: Until outpatient follow-up with PCP for blood pressure checks
Discontinued
clopidogrel [Plavix] 75 MG tablet
75 mg PO DAILY
Discharge Orders:
Discharge Patient (As Directed); Ordered 12/26/24
Ordered By: Adolfo Rogers
Discharge Date and Time
Print Language: UKRAINIAN
--- NOTE | 2024-12-26 15:52 | PTOTSP ---
LIBRARY SERIALS ASSISTANT Evaluation
Patient with minimal motor speech changes (i.e., imprecision of articulation, reduced volume) but 100% intelligible to unfamiliar listener in known and unknown context.
MOCA cognitive screen version 8.2 score = 25/30 (below normal of 26 or higher) with points lost for delayed recall (0/5; Memory Index Score 5/15). Comprehensive outpatient evaluation recommended to further assess cognitive linguistic skills.
Outpatient brochure provided as well as written handout re: subtle changes to cognitive linguistic skills s/p stroke. Patient in agreement. Discussed with nurse and physician.
[2024-12-26 19:10] LABS: Hepatitis C Antibody Negative (Negative)
== END 2024-12-26 19:04 | disposition home or self-care (01) | DRG 66 ==
LOC: 4 EAST ACU 11:32
PROVIDERS: ADMITTING PHYSICIAN Internal Medicine; ATTENDING PHYSICIAN Internal Medicine; CONSULT PHYSICIAN Psychiatry & Neurology Neurology; EMERGENCY PHYSICIAN Emergency Medicine; FAMILY PHYSICIAN Family Medicine
DX: I63.89 Other cerebral infarction (principal); I25.10 Atherosclerotic heart disease of native coronary artery without angina pectoris; I10 Essential (primary) hypertension; I65.23 Occlusion and stenosis of bilateral carotid arteries; K21.9 Gastro-esophageal reflux disease without esophagitis; R29.810 Facial weakness; R47.1 Dysarthria and anarthria; F41.9 Anxiety disorder, unspecified; F32.A Depression, unspecified; E78.00 Pure hypercholesterolemia, unspecified; Z95.1 Presence of aortocoronary bypass graft; Z87.891 Personal history of nicotine dependence; Z86.73 Personal history of transient ischemic attack (TIA), and cerebral infarction without residual deficits; Z79.899 Other long term (current) drug therapy; Z88.0 Allergy status to penicillin; Z79.02 Long term (current) use of antithrombotics/antiplatelets; Z79.82 Long term (current) use of aspirin
CPT/HCPCS: 70450; 70496; 70498; 70551; 80048; 80061; 85025; 86803; 92610; 93005; 93880; 97129; 97161; 97166; 99285; Q9967

== ENCOUNTER 2025-01-25 06:15 | Inpatient (IN) | payer MEDICARE, OTHER, SELFPAY ==
[2025-01-20 09:52] VITALS: BMI 20.9
[2025-01-20 10:18] LABS: % Basophils 0.8 % (0-2); % Eosinophils 1.7 % (0-6); % Immature Granulocytes 0.3 % (0-0.5); % Lymphocytes 26.1 % (20.5-51.1); % Monocytes 8.9 % (1.7-9.3); % Neutrophils 62.2 % (42.2-75.2); Absolute Basophils 0.1 10^3/uL (0-0.2); Absolute Eosinophils 0.1 10^3/uL (0-0.7); Absolute Lymphocytes 1.7 10^3/uL (1.2-3.4); Absolute Monocytes 0.6 10^3/uL (0.1-0.6); Absolute Neutrophils 3.9 10^3/uL (1.4-6.5); Hematocrit 38.7 % (39.0-52.0); Hemoglobin 13.4 g/dL (13.0-18.0); Mean Corp Hgb Conc. 34.6 g/dL (33.0-37.0); Mean Corpuscular Hgb 33.7 pg (27.0-31.0); Mean Corpuscular Volume 97.2 fL (80.0-94.0); Mean Platelet Volume 9.8 fL (7.4-10.4); Nucleated Red Blood Cells % 0 % (-); Platelet Count 246 10^3/uL (130-400); Red Blood Cell Count 3.98 10^6/uL (4.70-6.10); Red Cell Dist. Width 13.3 % (11.5-14.5); White Blood Cell Count 6.3 10^3/uL (4.8-10.8)
[2025-01-20 10:23] LABS: INR 0.97; PT 13.2 Sec (11.4-14.6)
[2025-01-20 10:24] LABS: APTT 27.6 Sec (23.4-35.0)
[2025-01-20 10:40] LABS: Blood Urea Nitrogen 17 mg/dl (9-20); Calcium 9.6 mg/dl (8.4-10.2); Carbon Dioxide 31 mmol/L (22-30); Chloride 102 mmol/L (98-107); Estimated Creatinine Clearance 59 ml/min; Glucose 93 mg/dl (70-99); Potassium 5.2 mmol/L (3.5-5.1); Sodium 138 mmol/L (135-145); eGFR > 60.00
[2025-01-25] VITALS (10 sets, daily range): BP systolic 116–184; BP diastolic 55–95
[2025-01-25] MEDS: BACTROBAN NASAL 1 GRAM NASAL (07:06)
[2025-01-25] MEDS: PERIDEX 0.12% ORAL RINSE 15 ML PO (07:07)
[2025-01-25 07:12] LABS: Glucose - Point of Care 78 mg/dl (70-99)
--- NOTE | 2025-01-25 07:12 | W.SUR.PREOP ---
Pre-Operative Surgical Note
-
I have examined this patient prior to the performance of the scheduled procedure.
The patient's condition is unchanged from the time of the current History and
Physical and the patient is able to undergo the scheduled procedure.
[2025-01-25] MEDS: VANCOCIN 1 GRAM IV (07:14)
--- NOTE | 2025-01-25 09:07 | W.SUR.POST ---
Surgical Immediate Post Op
Note
Pre Op Diagnosis: Left carotid stenosis
Post Op Diagnosis: Left carotid stenosis
Procedure Performed: Left carotid endarterectomy with bovine pericardial patch angioplasty and EEG monitoring
Primary Surgeon: Tam Cochran MD
operations administrative assistant: TATIANNA Rinaldi
Anesthesia: GETA
Estimated Blood Loss: 15 mL
Fluids: Anesthesia flowsheet
Drains/Shunts: N/A
Specimens/Cultures: Left carotid plaque
Doppler/Duplex/Angio (Y/N): Y
Complications: None
Operative Findings: Successful left carotid enterectomy and upon awakening patient was able to move bilateral upper extremities and lower extremity spontaneously and to command
--- NOTE | 2025-01-25 09:10 | OR.RPT ---
Operative Report
Operative Report
PROCEDURE DATE: 01/25/2025
Preoperative diagnosis: Critical left carotid artery stenosis, likely symptomatic.
Postoperative diagnosis: Same
Procedure: Left carotid endarterectomy with bovine pericardial patch angioplasty and intraoperative EEG/SSEP monitoring.
Surgeon: Dimas
Station Tender: ELENA Prieto, required for all aspects of procedure including assistance with traction/countertraction, following of suture line, assistance with closure.
Complications: None
Anesthesia: General
Indications for procedure:
Critical left carotid stenosis/focal dissection. Patient had relatively recent stroke with MRI findings of left hemispheric infarct. I discussed with neurologist who agreed with proceeding with left carotid revascularizations due to likely
etiology from the carotid. Risk/benefits/alternatives also discussed. Patient understood and wished to proceed.
Description of procedure:
Patient was identified brought to the operating room placed on the table in supine position. After the adequate administration of anesthesia and perioperative antibiotics he was prepped and draped in the standard surgical fashion. A standard
preoperative timeout was undertaken and everybody was in agreement the plan. A standard longitudinal incision was made in the left neck that was carried through the skin subcutaneous tissue. Using the electrocautery dissection was carried through
the platysma muscle layer and then alongside the anterior medial border of the sternocleidomastoid muscle. Then using a combination of sharp dissection with the Metzenbaum scissors and electrocautery I dissected along the anterior medial border of
the internal jugular vein. The common facial vein branch was ligated between silk ties and then divided. An additional proximal jugular vein crossing branch was ligated between silk ties and then divided to allow better exposure. I then deepened
my retraction. The common carotid artery was identified and carefully dissected away from the surrounding structures take great care to avoid any injury to the structures. A vessel loop was passed around it which was double looped, but not yet
tightened. Note the vagus nerve was visualized in its usual course posterior lateral to the common carotid artery, and was protected from harm's way. I then continued my dissection up the common carotid artery to the bulb staying only on the
anterior surface of the carotid artery. Then I carried the dissection up to the internal carotid artery and then to the distal internal carotid artery. I identified where it was soft and carefully circumferentially dissected the internal carotid
artery with minimal mobilization and passed a vessel loop around it. Note the hypoglossal nerve was preserved from harm's way. The patient was given an appropriate dose of heparin 6500 units. Next I dissected the anterior surface of the external
carotid artery and superior thyroid branches. These were then carefully circumferentially dissected with minimal mobilization and vessel loops passed around these which were double looped but not yet tightened. After 3 minutes of heparin
circulation time and confirmation of optimization of the blood pressure with my anesthesiology colleagues, I clamped the distal internal carotid artery where it was soft. There was no immediate EEG or SSEP changes. After 1 minute of test clamp
time there was no changes noted. Therefore at this point, the vessel loops on the external carotid artery and superior thyroid branches were tightened and the common carotid artery was clamped where it was soft proximally. An arteriotomy was made
on the common carotid artery with an 11 blade and extended using a Raymundo scissor. I extended the arteriotomy onto the mid to distal internal carotid artery. I noted an additional point of backbleeding. When I dissected posterior to the superior
thyroid branch there was an additional branch there which was carefully circumferentially dissected and Vesseloops passed around it. Once I had control of that, the field was dry and there is no backbleeding. There was a significant plaque noted
that resulted in a typical flow lumen reflective of the dissection seen on the CT angiogram. In addition some of this was soft or softer plaque. Raise concern that this had been an atheroembolic source.. A Ross was then used to endarterectomized
the plaque. An endarterectomy plane was created, and the plaque was then endarterectomized. Distally I feathered the plaque out to a nice clean endpoint in the distal internal carotid artery. Next I endarterectomized the intima back to normal
intima in the common carotid artery, and the intima was cut flush there. I then grasped the plaque and everted plaque out of the origin of the external carotid artery. The plaque was then sent off for specimen. The origin of the external carotid
artery was carefully visualized and any fine debris were removed with fine forceps. Proximal and distal endpoints were then carefully inspected. Any fine debris was removed with fine forceps, and the intima was noted to be nicely adherent
proximally distally. Next any fine debris were removed throughout the endarterectomy bed with fine forceps. I then flushed heparinized saline. I was very satisfied. Then, I used a bovine pericardial patch to sew a patch angioplasty with a
running 5-0 Prolene suture. Prior to completing and tying down my suture line, I backbled sequentially each branch and reclamped each branch prior to unclamping the next branch. I then irrigated with heparinized saline. Then I completed and tied
down my suture line. We then restored flow in the common carotid and external carotid arteries. Finally, we released flow in the internal carotid artery. There was excellent pulsatile flow in all 3 vessels. There was an excellent Doppler signal
in the internal carotid artery distal to the patch with a good normal low resistance Doppler signal. There was a good Doppler signal in the external carotid artery as well. A couple of 6-0 Prolene [id number] sutures were placed along any
bleeding points along the suture line. Protamine was given to reverse the heparin. Hemostasis was completely achieved. We then irrigated and confirmed full hemostasis. We then closed in layers with 2-0 Vicryl layer to reapproximate the
sternocleidomastoid muscle, followed by 3-0 Vicryl platysma muscle running layer, followed by 4-0 Monocryl subcuticular stitch. Dermabond was applied. The patient tolerated procedure well. He awoke moving all extremities to command with tongue in
the midline.
[2025-01-25] MEDS: CARDENE 200 IV (10:01)
[2025-01-25 10:11] LABS: Blood Urea Nitrogen 19 mg/dl (9-20); Calcium 8.2 mg/dl (8.4-10.2); Carbon Dioxide 28 mmol/L (22-30); Chloride 107 mmol/L (98-107); Estimated Creatinine Clearance 66 ml/min; Glucose 129 mg/dl (70-99); Potassium 4.3 mmol/L (3.5-5.1); Sodium 138 mmol/L (135-145); eGFR > 60.00
[2025-01-25 10:14] LABS: Hematocrit 34.4 % (39.0-52.0); Mean Corp Hgb Conc. 34.9 g/dL (33.0-37.0); Mean Corpuscular Hgb 33.4 pg (27.0-31.0); Mean Corpuscular Volume 95.8 fL (80.0-94.0); Mean Platelet Volume 9.6 fL (7.4-10.4); Platelet Count 198 10^3/uL (130-400); Red Blood Cell Count 3.59 10^6/uL (4.70-6.10); Red Cell Dist. Width 13.2 % (11.5-14.5); White Blood Cell Count 10.5 10^3/uL (4.8-10.8)
[2025-01-25] MEDS: NSS 1000 IV ×2 (11:07→23:01)
--- NOTE | 2025-01-25 12:28 | CON.INTV ---
Consultation
Consultation Request
Date/Time Consultation Requested: 01/25/2025 - 901
Date/Time Consultation Performed: 01/25/2025 - 929
Requesting Provider: TATIANNA Cunningham
Performing Provider: Dr. Osman
Reason for Consultation: s/p L-CEA
Medical History
-
Chief Complaint: Elective left carotid endarterectomy
History of Present Illness:
74-year-old male non-smoker with a past medical history of bilateral carotid artery stenosis with history of right CEA, CAD s/p CABG x 2, Neil's esophagus, dyslipidemia, PUD, history of COVID-19, history of recurrent TIA and multiple CVA, and
chronic back pain who presents for elective left carotid endarterectomy. Patient known to vascular surgery with last visit on 01/06/[address] Cochran. Patient had a CTA head/neck on 12/24/2024 showing a stable left proximal internal carotid artery
dissection. There was a 50-69% ICA stenosis seen on carotid ultrasound from 09/05/2024, and this level of stenosis was stable on repeat carotid ultrasound 12/26/2024, which also showed mixed plaque within the left carotid bulb. Vascular intervention
was reviewed and surgery recommended a carotid endarterectomy which the patient agreed to. Today patient underwent a left carotid endarterectomy with bovine pericardial patch angioplasty and intraoperative EEG/SSEP monitoring. There were no
immediate complications, and patient was transferred to the ICU postoperatively with the Unix Manager services consulted for additional management/recommendations.
Patient arrived to the ICU from the PACU at approximately 12:28 PM on 01/25/2025. When I saw the patient, he was resting in bed in no acute distress with his son, Manuelito, at bedside. Patient's heart rate is 81, BP 178/92 (via right radial A-line), BP
via NIBP: 138/73, and currently on room air breathing comfortably with SpO2 97%. He had just been started on Cardene at 2.5 mg/hr. Patient denies chest pain, VARGAS, SOB, abdominal pain, nausea, fevers or chills.
PMHx: Neil's esophagus, dyslipidemia, CAD s/p CABG x 2, history of CVA x 9, anxiety/depression, PUD, chronic back pain, history of COVID-19, recurrent TIA, hernia
PSHx: CABG x 2 (01/2017), right-sided CEA (05/2021), implantable loop recorder (07/01/2021), L4-L5 back surgery, robotic assisted laparoscopic repair of an incarcerated left inguinal hernia with mesh (01/12/2023)
Past Medical History
Past Medical History: Other (Above as per HPI)
Past Surgical History: Other (Above as per HPI)
Social History
Tobacco: Non-smoker
Alcohol: Occasional
Drug: Other (Former THC in the 1960s)
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
Family History
Family History: CAD (Father), Cancer (Father: Lung cancer; Mother: Colon cancer) and Other (Sibling: History of stroke (and all 3 of his sisters) + seizure disorder)
Allergies / Home Medications
Allergies
Allergy/AdvReac Type Severity Reaction Status Date / Time
Penicillins Allergy Swelling, Verified 01/25/25 07:08
hives, rash
ticagrelor [From Brilinta] Allergy SOB, Dry Verified 01/25/25 07:08
Cough
atorvastatin [From Lipitor] AdvReac Myalgias Verified 01/25/25 07:08
rosuvastatin [From Crestor] AdvReac pain Verified 01/25/25 07:08
everywhere
Home Medications
�Medication �Instructions �Recorded �Confirmed �Last Taken �Type
ezetimibe 10 mg tablet (Zetia) 10 mg PO DAILY High Cholesterol 01/07/23 01/25/25 01/20/25 08:00 History
lisinopril 40 mg tablet 40 mg PO DAILY Blood Pressure 01/07/23 01/25/25 01/20/25 08:00 History
sertraline 25 mg tablet 25 mg PO DAILY Mental 01/07/23 01/25/25 01/20/25 08:00 History
Health/Anxiety
Lions Ranjit 1 tab PO DAILYPRN PRN supplement 09/01/24 01/18/25 Unknown History
dandelion root 525 mg capsule 525 mg PO Daily PRN supplement 09/01/24 01/25/25 01/20/25 08:00 History
therapeutic multivitamin 1 tab PO DAILY Supplement 09/01/24 01/25/25 01/20/25 08:00 History
Review of Systems
-
History Source: Patient
All other systems: Negative unless noted
Vitals / Labs / Diagnostic Testing
Vital Signs
Temp Pulse Resp BP Pulse Ox
97.5 F 80 16 134/67 94
01/25/25 11:19 01/25/25 11:15 01/25/25 11:15 01/25/25 10:15 01/25/25 11:15
Lab Data
01/25/25 09:52
01/25/25 09:52
Diagnostic Testing:
Physical Exam
-
HEENT: Anicteric and Other (Vertical incision along left anterior neck with no exsanguination)
Cardiovascular: S1/S2 and Peripheral Edema (negative)
Respiratory: Wheeze (negative), Rales (negative), Rhonchi (negative) and Non-Labored Respirations
GI: Soft, Non Distended, Non Tender and Normal Bowel Sounds
Neurology: AO x 3 and Tremors (negative)
Skin: Warm and Dry
General: Respiratory Distress (negative), Comfortable, Fever (negative) and Chills (negative)
Assessment
-
Assessment: 74-year-old male non-smoker with a past medical history of bilateral carotid artery stenosis with history of right CEA, CAD s/p CABG x 2, Neil's esophagus, dyslipidemia, PUD, history of COVID-19, history of recurrent TIA and multiple
CVA, and chronic back pain who presents for elective left carotid endarterectomy. Patient known to vascular surgery with last visit on 01/06/[address] Cochran. Patient had a CTA head/neck on 12/24/2024 showing a stable left proximal internal carotid
artery dissection. There was a 50-69% ICA stenosis seen on carotid ultrasound from 09/05/2024, and this level of stenosis was stable on repeat carotid ultrasound 12/26/2024, which also showed mixed plaque within the left carotid bulb. Vascular
intervention was reviewed and surgery recommended a carotid endarterectomy which the patient agreed to. On 01/25/2025, the patient underwent a left carotid endarterectomy with bovine pericardial patch angioplasty and intraoperative EEG/SSEP
monitoring. There were no immediate complications, and patient was transferred to the ICU postoperatively with the Unix Manager services consulted for additional management/recommendations.
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
Impression:
#Critical left carotid artery stenosis s/p left carotid endarterectomy with bovine pericardial patch angioplasty (POD #0)
#History of right carotid endarterectomy (May 2021)
#Chronic anemia (baseline Hb 12�13.5g/dL)
#GERD with history of Neil's esophagus
#Dyslipidemia
#CAD s/p CABG x 2
#History of recurrent TIAs + CVA X9
#Anxiety/depression
#History of COVID-19
Plan:
Postoperative surgical intensive care unit monitoring
Supplemental oxygen as needed to maintain SpO2 >90-94%
prn nebulized bronchodilators � not currently bronchospastic
Incentive spirometry encouraged 10x per hour for at least 4 hrs a day
Aspiration precautions
Pain control
Neuro and vascular checks per protocol
Maintain MAP>65
Replete electrolytes with K>4, Mg>2
Maintain euglycemia with goal BG 140-180
Vascular surgery following-correspondence and operative notes reviewed
Transfuse blood products as needed to keep Hb>7g/dL, and plt>50k (given post-operative status)
DVT prophylaxis: HSQ
Early nutrition
Early mobilization
Critical care statement: A total of 41 minutes of critical care time was provided for this patient today. This includes management of unstable vital signs, evaluation of the patient at bedside, reviewing the patient's pertinent medical records
including radiographs, microbiology, laboratory evaluations, and discussion with primary team, consultants, pharmacy, nutrition, physical therapy, case management, charge nurse, critical care nursing, and respiratory therapy.
--- NOTE | 2025-01-25 12:28 | PTCARENOTE ---
Pt rec'd from PACU s/p left carotid endarterectomy with Dr. Cochran into ICU 3353. Pt is Aox3, comfortable. ice applied to left neck per orders. Pt arrived with cardene infusing at 2.5 mg/hr, titrated for arterial bp of 165 or less-confirmed orders
with vascular team. See worklist for details. NSS hung per order at 80/hr. Pt otherwise stable , neurochecks WNL-see worklist. Pt's son Manuelito at bedside, questions answered, plan discussed. Admission and assessment as documented. Oriented pt to room.
Call keating in hand.
[2025-01-25] MEDS: TYLENOL 650 MG PO (12:51)
--- NOTE | 2025-01-25 18:06 | PTCARENOTE ---
Pt remains stable, neuro checks WNL. Cardene titrated for SBP goal 100-165, see flowsheet. Pt with good appetite for dinner, consumed 100% of tray, visited with friend Elma, voiding PRN clear yellow urine. Pt very pleasant, appreciative of care.
Call keating in hand. Safe environment continues.
[2025-01-25] MEDS: HEPARIN 5000 UNITS SC (19:39)
--- NOTE | 2025-01-25 20:47 | PTCARENOTE ---
Received pt from previous RN. Pt is AAOx3, neuro checks Q1 per protocol (see worklist). NSR w/ PVCs on the monitor. On RA O2 sat 96%, lungs clear. Pt uses urinal in bed. Left neck open to air c/d/i. Cardene gtt @ 2.5mg/hr (see worklist). NS infusing
@ 80 ml/hr. Right radial noelle zeroed and transduced. EKG done per ICU protocol. CHG bath provided. Pt is laying in bed with call keating in reach.
--- NOTE | 2025-01-25 23:08 | PTCARENOTE ---
Systems reviewed, no new changes in assessment. Neuro checks, per protocol (see worklist). Offered pt an ice pack for left neck, pt refused. Cardene gtt titrated off at 2147. Safe environment maintained.
[2025-01-26 02:54] VITALS: BMI 20.8
--- NOTE | 2025-01-26 03:08 | PTCARENOTE ---
Systems reviewed, no new changes in assessment. Neuro checks per protocol (see worklist). AM labs provided. Safe environment maintained.
[2025-01-26 03:11] LABS: Hematocrit 33.4 % (39.0-52.0); Hemoglobin 11.8 g/dL (13.0-18.0); Mean Corp Hgb Conc. 35.3 g/dL (33.0-37.0); Mean Corpuscular Hgb 33.5 pg (27.0-31.0); Mean Corpuscular Volume 94.9 fL (80.0-94.0); Mean Platelet Volume 9.7 fL (7.4-10.4); Platelet Count 197 10^3/uL (130-400); Red Blood Cell Count 3.52 10^6/uL (4.70-6.10); Red Cell Dist. Width 13.2 % (11.5-14.5); White Blood Cell Count 9.9 10^3/uL (4.8-10.8)
[2025-01-26 03:22] LABS: APTT 28.4 Sec (23.4-35.0); INR 1.08; PT 14.5 Sec (11.4-14.6)
[2025-01-26 03:32] LABS: Blood Urea Nitrogen 21 mg/dl (9-20); Calcium 8.9 mg/dl (8.4-10.2); Carbon Dioxide 25 mmol/L (22-30); Chloride 108 mmol/L (98-107); Estimated Creatinine Clearance 74 ml/min; Glucose 129 mg/dl (70-99); Magnesium 1.9 mg/dl (1.6-2.3); Potassium 4.8 mmol/L (3.5-5.1); Sodium 139 mmol/L (135-145); eGFR > 60.00
[2025-01-26 03:51] VITALS: BP 143/72
[2025-01-26] MEDS: CARDENE 200 IV (04:03)
--- NOTE | 2025-01-26 04:09 | PTCARENOTE ---
Cardene gtt restarted, for SBP 173, titrated per protocol (see worklist).
--- NOTE | 2025-01-26 07:59 | W.PN.VS ---
Addendum entered and electronically signed by Tam Cochran MD 01/26/25 15:26:
Seen and examined earlier this a.m. This is a late entry. Patient was without any complaints. Left neck incision clean dry and intact. No hematoma. Neurologically no focal deficits. Moves all extremities well. Tongue midline. Plan/as
discussed and noted below.
Original Note:
Today's Communication / Plan
-
Seen and assessed with Dr. Cochran
Assessment/Plan
-
POD 1 left CEA
Plan:
-DC A-line
-DC IV fluids
-Oral BP meds this morning
-Increase diet
-Out of bed/ambulate
-Wean off Cardene
-Likely DC later today
Subjective Data
-
Date of Service: January 26, 2025
Patient seen at bedside this a.m. with Dr. Cochran. Patient offers no complaints at this time. No events overnight. Cardene started this morning for SBP 175
Objective Data
-
Vital Signs
Temp Pulse Resp BP Pulse Ox
97.7 F 70 16 143/72 98
01/26/25 02:53 01/26/25 06:00 01/26/25 06:00 01/26/25 03:51 01/26/25 06:00
Intake and Output
01/25/25 01/26/25 01/27/25
06:59 06:59 06:59
Intake Total 2885.0 / 2897.5 12. / 12.5
Output Total 3125 / 3125
Balance -240.0 / -227.5 12..5
Intake:
Oral fluids 1010 / 1010
IV fluids (Total) 1875.0 / 1887.5 12.5 / 12.5
Nss 1,000 ml @ 80 mls/hr IV . 1600 / 1600 0 / 0
[id number] TORSTEN Rx#:[id number]
cardene 200.0 / 212.5 12.5 / 12.5
normosol 75 / 75
Output:
Urine, Voided 3125 / 3125
Lab Results
01/26/25 03:03
01/26/25 03:03
Calcium 8.9 mg/dl (8.4-10.2) 01/26/25 03:03
Phosphorus 3.0 mg/dl (2.5-4.5) 01/26/25 03:03
Magnesium 1.9 mg/dl (1.6-2.3) 01/26/25 03:03
Physical Exam
-
AAOx3
No tachypnea on room air
No tachycardia
Neck site clean, dry, intact, soft, flat
Abdomen soft
Moves all extremities equally
Tongue midline
--- NOTE | 2025-01-26 08:00 | PTCARENOTE ---
Received pt from previous RN awake in bed. Pt is AAOx3, neuro checks Q1 per protocol (see worklist). NSR on tele. BPs WNL, Cardene weaned off per orders, oral anti hypertensive med regimen resumed. RA O2 sat 98%, lungs clear. Pt uses urinal PRN,
sitting on side of bed. Left neck open to air c/d/i. Right radial noelle dc'd, NSS infusing @ 80 ml/hr-also dc'd per orders. Plan discussed with Dr. Cochran and vascular acute care nursing assistant, finance officer and ICU care team in rounds. Pt will likely be dc'd home later
today. Pt assisted oob to chair, standby assist only required. Pt updated his son about possible dc, verbalizes no needs at this time. Call keating in hand.
[2025-01-26] MEDS: HEPARIN 5000 UNITS SC (08:14)
[2025-01-26] MEDS: ZOLOFT 25 MG PO (08:15)
[2025-01-26] MEDS: ZETIA 10 MG PO (08:15)
[2025-01-26] MEDS: THERAGRAN 1 TABLET PO (08:15)
[2025-01-26] MEDS: ZESTRIL 40 MG PO (08:15)
--- NOTE | 2025-01-26 08:27 | W.PN.INTV ---
Today's Communication / Plan
Recommendations
Up OOB as tolerated
Pain control
Goal BG 140�180
Maintain SpO2 >90-94%
Encouraged incentive spirometer use q1hr while awake
Patient is being prepared for discharge home today. No additional recommendations at this time. Pier Runner/Pulmonary service will now sign off. Please reconsult if there are any additional questions/concerns, or if patient's respiratory status
deteriorates.
Assessment
-
Assessment: 74-year-old male non-smoker with a past medical history of bilateral carotid artery stenosis with history of right CEA, CAD s/p CABG x 2, Neil's esophagus, dyslipidemia, PUD, history of COVID-19, history of recurrent TIA and multiple
CVA, and chronic back pain who presents for elective left carotid endarterectomy. Patient known to vascular surgery with last visit on 01/06/[address] Cochran. Patient had a CTA head/neck on 12/24/2024 showing a stable left proximal internal carotid
artery dissection. There was a 50-69% ICA stenosis seen on carotid ultrasound from 09/05/2024, and this level of stenosis was stable on repeat carotid ultrasound 12/26/2024, which also showed mixed plaque within the left carotid bulb. Vascular
intervention was reviewed and surgery recommended a carotid endarterectomy which the patient agreed to. On 01/25/2025, the patient underwent a left carotid endarterectomy with bovine pericardial patch angioplasty and intraoperative EEG/SSEP
monitoring. There were no immediate complications, and patient was transferred to the ICU postoperatively with the [employer] Runner services consulted for additional management/recommendations.
Chronic conditions MALTSTER: Bilateral carotid artery stenosis with history of R�CEA (05/2021), Neil's esophagus, dyslipidemia, CAD s/p CABG x 2, history of CVA x 9, anxiety/depression, PUD, chronic back pain, history of COVID-19, recurrent TIA, hernia
Impression:
#Critical left carotid artery stenosis s/p left carotid endarterectomy with bovine pericardial patch angioplasty (POD #1)
#History of right carotid endarterectomy (May 2021)
#Chronic anemia (baseline Hb 12�13.5g/dL)
#GERD with history of Neil's esophagus
#Dyslipidemia
#CAD s/p CABG x 2
#History of recurrent TIAs + CVA X9
#Anxiety/depression
#History of COVID-19
Plan:
Postoperative surgical intensive care unit monitoring
Supplemental oxygen as needed to maintain SpO2 >90-94% - currently on room air breathing comfortably
prn nebulized bronchodilators � not currently bronchospastic
Incentive spirometry encouraged 10x per hour for at least 4 hrs a day
Aspiration precautions
Pain control
Neuro and vascular checks per protocol
Maintain MAP>65
Replete electrolytes with K>4, Mg>2
Maintain euglycemia with goal BG 140-180
Vascular surgery following-correspondence and operative notes reviewed
Transfuse blood products as needed to keep Hb>7g/dL, and plt>50k (given post-operative status)
DVT prophylaxis: HSQ
Early nutrition
Early mobilization
Patient is being prepared for discharge home today. No additional recommendations at this time. Pier Runner/Pulmonary service will now sign off. Thank you for allowing us to be involved in the care of this patient. Please reconsult if there are
any additional questions/concerns, or if patient's respiratory status deteriorates.
Total time spent today was 41 minutes for this encounter. Time includes reviewing laboratory test/imaging results, reviewing pertinent medical records, obtaining and reviewing medical history, performing an appropriate exam, ordering medications,
tests and procedures. Time also includes documentation of this encounter, coordinating patient care and communicating with other healthcare professionals. Total time does not include separately billed tests performed on this date of service.
Subjective Dataa
Subjective Data
Date of Service:
Date of Service: January 26, 2025
Chief Complaint: Pier Runner Follow Up
Subjective:
Patient seen and evaluated this morning. Heart rate 72, sitting in chair no acute distress on room air breathing comfortably. SpO2 98%. Likely going home today.
Review of Systems
General: Other (Negative unless mentioned above)
Objective Data
Data Reviewed
Vital Signs / I&O / Oxygen:
Vital Signs
Temp Pulse Resp BP Pulse Ox
97.5 F 72 16 157/63 99
01/26/25 08:28 01/26/25 08:15 01/26/25 08:15 01/26/25 08:15 01/26/25 08:15
Intake and Output
01/25/25 01/26/25 01/27/25
06:59 06:59 06:59
Intake Total 2885.0 / 2897.5 249.5 / 249.5
Output Total 3125 / 3125 500 / 500
Balance -240.0 / -227.5 -250.5 / -250.5
SaO2 99
Physical Exam
General: Respiratory Distress (negative), Comfortable, Chills (negative) and Sweats (negative)
HEENT: Normocephalic and Anicteric
Cardiovascular: S1-S2 and Peripheral Edema (negative)
Respiratory: Clear, Wheeze (negative), Crackles (negative) and Rhonchi (negative)
GI: Soft, Non Distended, Non Tender and Normal Bowel Sounds
Neurology: AO x 3 and Tremors (negative)
Skin: Dry, Cyanosis (negative) and Jaundice (negative)
Labs/Micro/Reports
Lab Data
01/26/25 03:03
01/26/25 03:03
Laboratory Results
01/26/25
03:03
PT 14.5
INR 1.08
APTT 28.4
[2025-01-26 08:39] VITALS: BP 148/71
--- NOTE | 2025-01-26 10:33 | CM ---
CM following re: discharge planning.
Reviewed pt's chart, met with pt.
Pt is a 74 year old male, admitted with primary dx of POD 1 left CEA. per Vascular surgery pt most likely will be discharged home today. Pt is aware, expressed his agreement and he stated his son will transport home. IMM reviewed, placed on chart,
pt has a copy.
Pt reports he lives with spouse in a condo, 1 step to enter, has 2 supportive son. 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 Pt described himself as independent in all areas [employer]. No DME, VN or SNF history. Pt independently
walking in the unit.
PCP: Macey Portillo
Pharmacy: [facility].
D/C plan: home no needs. Son to transport.
[2025-01-26 11:05] VITALS: BP 136/94
[2025-01-26 12:00] VITALS: BP 152/85
[2025-01-26 13:00] VITALS: BP 143/81
--- NOTE | 2025-01-26 13:02 | PTCARENOTE ---
Pt remains stable, Neuro checks WNL. OOB to chair all day, amb in villalobos PRN. Pt looking forward to discharge. Call keating in hand.
[2025-01-26 14:00] VITALS: BP 142/74
--- NOTE | 2025-01-26 14:38 | PTCARENOTE ---
Pt discharge orders rec'd, paperwork reviewed, vitals checked. Monitoring equipment and IVs removed. Pt packed own belongings, called son for ride. Awiting son's arrival -no needs or questions at this time.
== END 2025-01-26 15:34 | disposition home or self-care (01) | DRG 37 ==
LOC: ICU 06:15
PROVIDERS: Nurse Practitioner; ADMITTING PHYSICIAN Surgery Vascular Surgery; CONSULT PHYSICIAN Internal Medicine Critical Care Medicine; PRIMARYCARE PHYSICIAN Family Medicine
PROC: 03CL0ZZ Extirpation of Matter from Left Internal Carotid Artery, Open Approach (ICD-10-PCS; 2025-01-25)
PROC: 03UL0KZ Supplement Left Internal Carotid Artery with Nonautologous Tissue Substitute, Open Approach (ICD-10-PCS; 2025-01-25)
DX: I65.22 Occlusion and stenosis of left carotid artery (principal); I77.71 Dissection of carotid artery; I25.10 Atherosclerotic heart disease of native coronary artery without angina pectoris; K21.9 Gastro-esophageal reflux disease without esophagitis; F32.A Depression, unspecified; F41.9 Anxiety disorder, unspecified; E78.2 Mixed hyperlipidemia; D64.9 Anemia, unspecified; Z88.0 Allergy status to penicillin; Z82.49 Family history of ischemic heart disease and other diseases of the circulatory system; Z82.3 Family history of stroke; Z86.16 Personal history of COVID-19; Z87.11 Personal history of peptic ulcer disease; Z79.82 Long term (current) use of aspirin; Z79.02 Long term (current) use of antithrombotics/antiplatelets; Z79.899 Other long term (current) drug therapy; Z95.1 Presence of aortocoronary bypass graft; Z86.73 Personal history of transient ischemic attack (TIA), and cerebral infarction without residual deficits
CPT/HCPCS: 88304; 88311; 35301; 36415; 71045; 71046; 80048; 82962; 83735; 84100; 85025; 85027; 85610; 85730; 86850; 86900; 86901; 93005; 95938; 95941; 95955

== ENCOUNTER 2025-04-02 07:34 | Inpatient (IN) | payer MEDICARE, OTHER, SELFPAY ==
[2025-04-02] VITALS (54 sets, daily range): BP systolic 109–179; BP diastolic 78–122; BMI 20.8
[2025-04-02 03:53] LABS: % Basophils 0.7 % (0-2); % Eosinophils 2.1 % (0-6); % Immature Granulocytes 0.6 % (0-0.5); % Lymphocytes 24.5 % (20.5-51.1); % Monocytes 10.1 % (1.7-9.3); Absolute Basophils 0.1 10^3/uL (0-0.2); Absolute Eosinophils 0.2 10^3/uL (0-0.7); Absolute Immature Granulocytes 0.1 10^3/uL (0-0.05); Absolute Monocytes 0.8 10^3/uL (0.1-0.6); Absolute Neutrophils 5.1 10^3/uL (1.4-6.5); Hematocrit 36.9 % (39.0-52.0); Hemoglobin 12.9 g/dL (13.0-18.0); Mean Corpuscular Volume 97.4 fL (80.0-94.0); Mean Platelet Volume 9.7 fL (7.4-10.4); Nucleated Red Blood Cells % 0 % (-); Platelet Count 243 10^3/uL (130-400); Red Blood Cell Count 3.79 10^6/uL (4.70-6.10); Red Cell Dist. Width 13.5 % (11.5-14.5); White Blood Cell Count 8.3 10^3/uL (4.8-10.8)
[2025-04-02 04:09] LABS: ALT (SGPT) 20 U/L (0-50); AST (SGOT) 42 U/L (17-59); Albumin 3.9 g/dl (3.5-5.0); Alkaline Phosphatase 102 U/L (38-126); Blood Urea Nitrogen 21 mg/dl (9-20); Calcium 9.6 mg/dl (8.4-10.2); Carbon Dioxide 29 mmol/L (22-30); Chloride 108 mmol/L (98-107); Estimated Creatinine Clearance 57 ml/min; Glucose 103 mg/dl (70-99); Sodium 141 mmol/L (135-145); Total Protein 7.1 g/dl (6.3-8.2); eGFR > 60.00
[2025-04-02] MEDS: NITROGLYCERIN PREMIX 250 IV (04:12)
--- NOTE | 2025-04-02 04:16 | ED.GENMED ---
History of Present Illness
General
Chief Complaint: Chest Pain
Source: patient, ambulance crew and previous hospital records
Exam Limitations: none
Time Seen by Provider: 04/02/25 03:56
Nursing documentation reviewed up to this point in time: agreed with
History of Present Illness
History of Present Illness:
This is a 75-year-old gentleman with history of hypertension, hyperlipidemia, CAD status post CABG 2017, PAD, ASCVD with multiple TIAs as well as strokes, bilateral carotid endarterectomy. He presents with substernal chest pain that began 2 days
ago, intermittent over the past 2 days but more persistent, constant since 8 PM tonight. He took 1 sublingual nitroglycerin around 9 PM with questionable minimal relief. He denies radiation of the pain, no nausea nor vomiting, no diaphoresis nor
palpitations.
He arrives via EMS and was given aspirin prehospital as well as 2 sublingual nitroglycerin prehospital with moderate relief of pain. Currently 1 out of 10.
Past History
Past History
ED Past Medical History: CAD, CVA (Right lentiform infarct November 2018), GERD, HTN, Hypercholesterolemia, Psychiatric (Anxiety/depression) and Other (Neil's esophagus, peptic ulcer disease, chronic back pain)
ED Past Surgical History: Cardiac (CABG 2016, Linq recorder July 01, 2021), Orthopedic (L4-5 laminectomy) and Other (Right CEA, herniorrhaphy)
Social History
Tobacco: Former smoker
Alcohol: None
Drug: None
Personal:
Living: other (With nurse assistant)
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
Family History
Family History: Other (Noncontributory)
Phy Exam
Physical Exam
Physical Exam:
GENERAL: Alert , in no apparent distress
EYE: . anicteric
NECK: Supple, nontender, no meningismus, no significant adenopathy.
ENT: oral mucosa is moist. No rhinorrhea.
CARDIAC: Regular rate and rhythm. no murmur.
LUNGS: Clear breath sounds bilaterally, no acute respiratory distress, no wheezes/rales/rhonchi
ABDOMEN: Soft, nondistended, without focal tenderness, normoactive BS.
NEUROLOGICAL: Alert and oriented x3, no focal neuro deficits.
SKIN: Warm and dry, normal color, skin intact. No rash.
MUSCULOSKELETAL: No C/C/E. peripheral pulses are full and equal b/l. No palpable tenderness.
PSYCH: Normal and appropriate interaction.
Scores
Heart Score for Chest Pain Patients
STEMI patient?: No
History: Highly Suspicious
ECG: Significant ST-Depression
Age: >/= 65 years
Risk Factors: >/= 3 Risk Factors or History of CAD
Troponin: >/= 3 x Normal Limit
Heart Score for Chest Pain Patients: 10
Heart Score Risk: 72.7 % MACE over next 6 weeks
Course
Orders/Labs/Results
Orders:
Orders
04/02/25 03:39
EKG [Electrocardiogram (*1)] Urgent
Reason for Study: Chest Pain
EKG- Treatment ONCE
04/02/25 03:41
Cardiac Monitoring- Treatment ONCE
IV Insert/Care/Rem.- Treatment PRN
Pulse Ox/spot Check [RESP] Urgent
Quantity: 1
Special Instructions: ON ROOM AIR
04/02/25 03:43
Complete Blood Count/With Diff Urgent
Comprehensive Metabolic Panel Urgent
LDH Urgent
Comment: ADD ON
Lipase Urgent
Comment: ADD ON
Troponin I Urgent
04/02/25 03:58
Add On- LAB Urgent
Tests Added?: LIPASE, LDH
04/02/25 04:04
Nitroglycerin 100 mg/250 ml [Nitroglycerin Premix] 100 mg in 250 ml IV NOW
Initial dose in mcg/min, then titrate:: 5
Titrate to keep:: SBP < 160 mmHg
Titrate by mcg/min:: 5 mcg/min, may increase by 10 mcg/min if dose > 20 mcg/min
Frequency of titrations (minutes):: every 3-5 minutes
Maximum dose in mcg/min:: 200
Begin to taper infusion when:: Remained at goal for 2hrs
Taper by mcg/min:: 5 mcg/min
Frequency of taper (minutes) if patient maintains goal:: 30
Taper to off?: Yes
If infusion off & no longer maintaining goal:: Contact Provider
04/02/25 04:05
CR Chest Portable - 1 View Urgent
Comment:
Reason For Exam: CP
Reason Study Needs to be Portable: Patient Unstable
04/02/25 04:29
PTT Urgent
04/02/25 04:36
Heparin 3,900 units IV NOW STA
Nursing to Place Non Medication Order As Directed
Physician Order: PTT 6 hours after initial start of Heparin infusion
04/02/25 04:45
Heparin 38384 Units/250 ml 25,000 units in 250 ml IV PER PROTOCOL
Weight to be used for heparin protocol in kilograms (kg):: 65.6
Protocol:: Cardiac Tx/Acute Coronary
PTT Goal Range to be used:: PTT 73 to 111 seconds
Order type:: Initial
INITIAL Infusion Dose (UNITS/KG/hr) & then follow protocol:: 12 units/kg/hr
Infusion Dose in UNITS/hr & then follow protocol (UNITS/hr):: 800
INFUSION RATE in mL/hr & then follow protocol (mL/hr):: 8
PTT less than or equal to 64 seconds:: Increase rate by 200 units/hr (+ 2 mL/hr)
PTT 64.1 to 72.9 seconds:: Increase rate by 100 units/hr (+ 1 mL/hr)
PTT 73 to 111 seconds:: Target Range. No change in rate.
PTT 111.1 to 130.9 seconds:: Decrease rate by 100 units/hr (- 1 mL/hr)
PTT 131 to 199.9 seconds:: HOLD for 1 hr. Then decrease rate by 200 units/hr (- 2 mL/hr)
PTT greater than or equal to 200 seconds:: HOLD for 2 hrs & Notify Provider. Then decrease by 200 units/hr (-
2 mL/hr)
Lab follow-up:: Each change, PTT q6h until 2 consecutive are therapeutic. Then PTT
daily.
04/02/25 05:00
Flush (0.9% Sodium Chloride) [Flush (Nss)] See Dose Instructions IV PER PROTOCOL
04/02/25 05:50
Electrocardiogram (*1) Urgent
Reason for Study: Chest Pain
Troponin I Urgent
04/02/25 05:51
EKG- Treatment ONCE
04/02/25 06:03
Metoprolol [Lopressor] 5 mg IV NOW STA
04/02/25 06:13
Carvedilol [Coreg] 3.125 mg PO NOW STA
04/02/25 06:35
Admit/Transfer Patient As Directed
Co-Sign Provider:
Level of Care: Inpatient admission
Assign to:: IVU
Physician / Group: Twan
Diagnosis: NSTEMI
Reason for Hospitalization: NSTEMI
Expected length of stay greater than two midnights?: Yes
ELOS- Estimated Length of Stay in days: 3
I certify the patient meets the requirements for IP care: Yes
PRN Pain Medication Management As Directed
May give lesser potent ordered pain med per pt: Yes
preference::
Protocol:: Medication orders for pain may be administered in a
manner that supports deferring to patient preference
when the pt is:
- Requesting an ordered lesser potent pain medication.
Least to most potent pain medications are defined
as: acetaminophen < NSAID < tramadol < opioids
(morphine, oxycodone, hydromorphone).
- Requesting a lesser dose of the same medication IF
ORDERED.
- Requesting a less intrusive route of administration
if both routes are prescribed by the provider (PO <
IV).
04/02/25 06:36
Code Status As Directed
Resuscitation Status: Full Code
04/02/25 12:00
PTT Q6
04/02/25 18:00
PTT Q6
Abnormal Lab Results
04/02/25 04/02/25
03:43 05:50
RBC 3.79 L 10^6/uL
(4.70-6.10)
Hgb 12.9 L g/dL
(13.0-18.0)
Hct 36.9 L %
(39.0-52.0)
MCV 97.4 H fL
(80.0-94.0)
MCH 34.0 H pg
(27.0-31.0)
Abs Immat Gran (auto) 0.1 H 10^3/uL
(0-0.05)
Absolute Monos (auto) 0.8 H 10^3/uL
(0.1-0.6)
Immature Gran % 0.6 H %
(0-0.5)
Monocytes % 10.1 H %
(1.7-9.3)
Chloride 108 H mmol/L
(98-107)
BUN 21 H mg/dl
(9-20)
Glucose 103 H mg/dl
(70-99)
Troponin I 2.080 H* ng/ml 2.950 H* D ng/ml
04/02/25 03:43
04/02/25 03:43
Vital Signs
Initial and Last Documented VS:
Initial Vital Signs
Temp Pulse Resp BP Pulse Ox
97.7 F 77 20 174/106 98
04/02/25 03:44 04/02/25 03:44 04/02/25 03:44 04/02/25 03:44 04/02/25 03:44
Last Documented Vital Signs
Temp Pulse Resp BP Pulse Ox
97.7 F 84 10 169/104 97
04/02/25 03:44 04/02/25 06:52 04/02/25 04:20 04/02/25 06:40 04/02/25 06:40
MDM/Problems Addressed
Differential Diagnosis Includes:
Significant concern for ACS. Prehospital EKG shows ischemia laterally which is new compared to previous. Prehospital EKG/posterior leads overall unremarkable.
Patient noted to be significantly hypertensive and states his blood pressure has been elevated over the past 4 to 5 days. He denies back pain, chest pain has been intermittent thus dissection is much less likely.
Will initiate nitro drip, check chest x-ray.
Labs are pending.
*Radiology
Radiology exam reviewed: preliminary read by ED provider (Portable chest x-ray is unremarkable. Normal heart size. Clear lung hernandez.)
*Pulse Oximetry
Patient hypoxic: no
*EKG
Interpreted by ED Provider?: Yes
Interpretation: abnormal
Comparison EKG: changes noted
Rate: normal
Rhythm: sinus
[place]: normal axis
Interval: normal interval
Ischemia: T-wave inversion (Flipped T waves laterally. Previous ST depression noted prehospital has improved/resolved.)
*Skein Washer Interpretation
Rate: normal
Interpretation: normal
Rhythm: sinus
*Critical Care Note
Total Time (30-74mins, 75-104mins- exclusive of procedures): 140
comment:
Critical care statement: A total of 140 minutes of critical care time was provided for this patient. This includes management of unstable vital signs, evaluation of the patient at bedside, reviewing the patient's pertinent medical records,
discussion with consultants, review of old EKGs and review of pertinent medical records. This time with separate from time utilized to perform the aforementioned documented procedures
Update Note
Update Note:
04:35
Patient continues with very mild chest pain. Blood pressure improving currently 168/98.
Troponin elevated to 0.08.
Case discussed with cardio interventional. EKG reviewed. Consistent with non-STEMI.
Recommend continuing nitro drip, titrating for blood pressure and chest pain. Will add nitro drip.
05:50
Patient is chest pain-free, comfortable.
Continues with moderate hypertension 158/100 but improved.
Repeat EKG and repeat troponin are pending.
06:10
Repeat EKG continues to show flipped T waves laterally but T wave depression noted prehospital has resolved
Case discussed with [facility] cardiology, request patient be admitted to hospitalist with consult to cardiology.
ED Attending Note
-
Portions of this chart may have been created with voice recognition software.� Occasional wrong word or��sound alike� substitutions may have occurred due to the inherent limitations of voice recognition software.
Discharge Plan
Departure
Patient Disposition: Admit
Date of Disposition: 04/02/25
Time of Disposition: 06:13
Admit to: CVICU
Admit to doctor: Twan
Presentation/result/management discussed w/ accepting MD/DO: Hospitalist
Condition: Serious
Discharge Problem:
Acute non-ST elevation myocardial infarction (NSTEMI), Accelerated hypertension
Prescriptions:
No Action
lisinopril 40 mg Tablet
40 mg PO DAILY
ezetimibe [Zetia] 10 mg Tablet
10 mg PO DAILY
clopidogrel 75 mg Tablet
75 mg PO DAILY
aspirin 81 mg Tablet,Chewable
81 mg PO DAILY
hydrochlorothiazide 25 mg Tablet
25 mg PO DAILY
Referrals:
Owen Portillo DO [Family Provider, Family Practice]
Interventions
Interventions:
*Risk Screen - Suicide Last Done: 04/02/25 03:44
*General Assessment Last Done: 04/02/25 03:44
*Neglect/Abuse Screening Last Done: 04/02/25 03:44
*ED- Fall Risk Assessment Last Done: 04/02/25 03:44
*ED COVID-19 Vaccine History Last Done: 04/02/25 03:44
ED- Cardiac Assessment Last Done: 04/02/25 03:44
Discharge Date and Time
Print Language: CITIZEN OF [place]
[2025-04-02 04:26] LABS: LDH 235 U/L (120-246); Lipase 126 U/L (23-300)
[2025-04-02 04:50] LABS: APTT 32.8 Sec (23.4-35.0)
[2025-04-02] MEDS: HEPARIN 3900 UNITS IV (05:15)
[2025-04-02] MEDS: HEPARIN 25000 UNITS/250 ML IV (05:20)
[2025-04-02] MEDS: COREG 3.125 MG PO (06:28)
--- NOTE | 2025-04-02 06:39 | HPS.HSE ---
Family Physician
-
Family Physician: Owen Portillo
Chief Complaint
-
Chest Pain
History of Present Illness
Patient is a 75y M with PMH significant for ASCVD, hypertension and GERD who presents to ED complaining of chest pain. Patient states that his BP at home has been elevated for the past 2-3 days. For the past 2 days, he has noted chest
discomfort with exertion. Pain typically would improve with rest. Yesterday, patient developed substernal chest pain during the day. By the evening - when he was done work and inactive - his pain did not improve. With persistent pain through the
night, he presented to the ED for further evaluation.
Patient notes pain in the lower chest with radiation straight through to the back. No neck pain / arm pain.
He denies any associated lightheadedness, SOB, nausea or diaphoresis.
At the time of my examination, patient states that they pain is resolved.
Medical History
Past Medical History
Past Medical History: Reports Other
Additional Past Medical History:
ASCVD
- CAD
- Bilateral Carotid Stenosis
- Multiple CVA / TIA (9 total)
Hypertension
GERD / PUD / Neil's
Anxiety / Depression
Past Surgical History: Reports Other
Additional Past Surgical History:
CABG x 2
Bilateral CEA (L was done in December of this year)
LINQ
Hernia Repair
Lumbar Surgery
Social History
Tobacco: Non-smoker
Alcohol: None
Drug: None
Family History
Family History: Other (Father: CAD, Lung Cancer Mother: Colon Cancer)
Allergies / Home Medications
Allergies reflects when Allergies were last updated in [facility].
Home Medications with original date entered in [facility]
Allergy/Medication List:
Allergies
Allergy/AdvReac Type Severity Reaction Status Date / Time
Penicillins Allergy Swelling, Verified 01/25/25 07:08
hives, rash
ticagrelor (From Brilinta) Allergy SOB, Dry Verified 01/25/25 07:08
Cough
atorvastatin (From Lipitor) AdvReac Myalgias Verified 01/25/25 07:08
rosuvastatin (From Crestor) AdvReac pain Verified 01/25/25 07:08
everywhere
Home Medications
ezetimibe 10 mg tablet (Zetia) 10 mg PO DAILY High Cholesterol 01/07/23
lisinopril 40 mg tablet 40 mg PO DAILY Blood Pressure 01/07/23
aspirin 81 mg chewable tablet 81 mg PO DAILY 04/02/25
clopidogrel 75 mg tablet 75 mg PO DAILY 04/02/25
hydrochlorothiazide 25 mg tablet 25 mg PO DAILY 04/02/25
Review of Systems
-
History Source: Patient
A 12 point ROS was completed and negative except as noted: Yes
Constitutional: Denies Fever or Chills
Respiratory: Denies Cough or Trouble Breathing
Cardiac: Reports Chest Pain; Denies Palpitations
Abdomen/GI: Denies Abdominal Pain, Nausea, Vomiting or Diarrhea
: Denies Dysuria or Frequency
Musculoskeletal: Denies Joint Pain or Edema
Neurological: Denies Dizzy or Headache
Physical Exam
Vital Signs
Vital Signs
Temp Pulse Resp BP Pulse Ox
97.7 F 77 10 168/108 97
04/02/25 03:44 04/02/25 06:28 04/02/25 04:20 04/02/25 06:28 04/02/25 06:15
Physical Exam
General: Other (75y M in no acute distress.)
HEENT: Moist mucous membranes and PERRLA
Respiratory: Clear; No Wheezes, Rales or Rhonchi
Cardiac: S1/S2 and Regular Rhythm; No Murmur
GI: Soft, Non Tender, Non Distended and Normal Bowel Sounds
Musculoskeletal: No Clubbing, No Cyanosis and Other (trace lower extremity edema.)
Neuro: AO x 3
Laboratory Results
-
04/02/25 03:43
04/02/25 03:43
Laboratory Results
APTT 32.8 Sec (23.4-35.0) 04/02/25 04:29
Total Bilirubin 1.0 mg/dl (0.2-1.3) 04/02/25 03:43
AST 42 U/L (17-59) 04/02/25 03:43
ALT 20 U/L (0-50) 04/02/25 03:43
Alkaline Phosphatase 102 U/L (38-126) 04/02/25 03:43
Troponin I 2.080 ng/ml H* 04/02/25 03:43
Lipase 126 U/L (23-300) 04/02/25 03:43
Impression/Plan
-
A/P: Patient is a 75y M with PMH significant for extensive ASCVD who presents to ED complaining of chest pain.
NSTEMI / ACS
ASCVD
- Admit for further evaluation and treatment.
- EKG with ST depressions/ T wave inversions V3-V6.
- Initial troponin = 2.08. Follow to peak.
- Continue IV heparin, NTG, DAPT, etc.
- Patient is unfortunately intolerant of statins.
- Supplemental O2, MSO4 if needed.
- Follow for any new / recurrent pain.
- Cardiology consultation for additional recommendations and probable ischemic evaluation.
Hypertensive Emergency
- BP elevation (170/100) with chest pain / EKG changes / etc.
- Continue usual outpatient med regimen.
- IV NTG as noted above and titrate for adequate BP control (SBP < 160).
- Adjust PO regimen as needed for adequate control.
GERD / PUD / Neil's Esophagus
- No acid suppression agents included in meds he listed to me?
- PPI daily for now.
DVT Prophylaxis: On therapeutic heparin at present.
Code Status: Full
--- NOTE | 2025-04-02 09:03 | CON.CAR ---
Consultation
Consultation Request
Date/Time Consultation Requested: 04/02/2025
Date/Time Consultation Performed: 04/02/2025
Requesting Provider: Dr. Aguila
Performing Provider: Dr. Mcgarry (primary commercial production editor Dr. Hernandez)
Reason for Consultation: cp
Medical History
-
Chief Complaint: right hand weakness/speech difficulties
History of Present Illness:
Mr. Jones is a 75-year-old male with hypertension, dyslipidemia (statin intolerant, on Zetia, cannot afford Repatha), CAD status post CABG in 2017 (RAMOS to LAD and SVG to PDA), PAD s/p right CEA 05/2021 Dr. Cochran complicated by cerebellar stroke and
ILR implant 07/01/2021, and CVA (12/2021 on Plavix, ASA added), more recently left CEA on 01/25/[address] Cochran who presented with intermittent chest pain for the last 2 days which became constant around 8 PM yesterday evening, it was a tightness
reminiscent of his angina.
Electrocardiogram shows significant ST depression V4-V6. This was reviewed with interventional cardiology on arrival and was deemed not a STEMI so medical management was initiated. Initial troponin 2.08 trending up to 2.95 this morning.
Currently, he is feeling better. He has no compliaint.
Past Medical History
Past Medical History: Other (as above)
Past Surgical History: Other (as above. hernia repair 12/2022, back surgery)
Social History
Tobacco: Non-Smoker
Alcohol: None
Personal:
Living: With Family
Family History
Family History: Reviewed & Not Pertinent
Allergies / Home Medications
Allergy/AdvReac Type Severity Reaction Status Date / Time
Penicillins Allergy Swelling, Verified 01/25/25 07:08
hives, rash
ticagrelor (From Brilinta) Allergy SOB, Dry Verified 01/25/25 07:08
Cough
atorvastatin (From Lipitor) AdvReac Myalgias Verified 01/25/25 07:08
rosuvastatin (From Crestor) AdvReac pain Verified 01/25/25 07:08
everywhere
�Medication �Instructions �Recorded �Confirmed �Type
ezetimibe 10 mg tablet (Zetia) 10 mg PO DAILY High Cholesterol 01/07/23 04/02/25 History
lisinopril 40 mg tablet 40 mg PO DAILY Blood Pressure 01/07/23 04/02/25 History
aspirin 81 mg chewable tablet 81 mg PO DAILY 04/02/25 04/02/25 History
clopidogrel 75 mg tablet 75 mg PO DAILY 04/02/25 04/02/25 History
hydrochlorothiazide 25 mg tablet 25 mg PO DAILY 04/02/25 04/02/25 History
Review of Systems
-
All other systems: Negative unless noted
Physical Exam
Vital Signs
Temp Pulse Resp BP Pulse Ox
97.7 F 67 10 160/83 96
04/02/25 03:44 04/02/25 07:40 04/02/25 04:20 04/02/25 07:40 04/02/25 07:40
Lab Results
04/02/25 03:43
04/02/25 03:43
Troponin I 2.950 ng/ml H* D 04/02/25 05:50
Physical Exam
General: Well Developed, Well Nourished and No Apparent Distress
Respiratory: Clear; Negative Wheezes, Crackles or Rhonchi
Cardiac: S1/S2 and Regular Rhythm; Negative Murmur, Rub or Peripheral Edema
GI: Soft and Non Tender
Musculoskeletal: No Clubbing and No Cyanosis
Neuro: AO x 3
Impression / Plan
-
Non-STEMI:
-this is a threat to life
-he is currently cp free
-Continue aspirin, plavix, heparin, beta-rayne, ACEI
-He is statin intolerant, on zetia
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
-Echo
- Trend troponin to peak
- Serial EKGs
-prior CAB 2016
-NPO p MN for cath
Hypertensive emergency: Presented with blood pressure 170/100.
Continue IV nitroglycerin
adjust p.o. regimen as needed for adequate control.
continue mal, hctz and bb
PAD - s/p lCEA 01/25/25 right CEA 05/2021.
- followed by Dr. Cochran as outpatient.
- continue ASA, Plavix, Zetia.
HLD - intolerant to statins.
-update lipid profile
- on Zetia with LDL 121 from 02/2024.
- Repatha prescribed by Dr. Lo but he cannot afford it.
- can look into Praluent or Leqvio as an outpatient.
h/o CVA
Data Reviewed
-
EKG: Tracing Personally Visualized and interpreted (Arrival EKG normal sinus rhythm with marked ST depressions V4-V6 compared to the prior on 01/25/2025 these are new. Follow-up EKG this morning shows sinus rhythm with ST depressions in V5 V6
without significant change)
--- NOTE | 2025-04-02 10:00 | TRANSFER ---
pt arriving from ED in stretcher, able to walk over to hospital be safely with stand by assistance. pt is aaox3, denies cp/sob. pt present on RA with stable vitals beside BP for which pt presents with a nitro drip going at 60 mcg/min into right
ac. pt with heparin drip running at 800 units/hr into left ac without issue. report received from ED RN Katy via phone and at bedside. assessment and admission being preformed. awaiting cards assessment for plan of care. Elma Will, pts
friend/health coordinator at bedside interacting with pt. pt on cardiac monitors, bed in low position, call bed and personal items in reach. urinal provided. plan of care continues to be followed.
[2025-04-02] MEDS: LOW STRENGTH ASPIRIN 81 MG PO (10:19)
[2025-04-02] MEDS: ORETIC 25 MG PO (10:19)
[2025-04-02] MEDS: PROTONIX IV 40 MG IV (10:20)
[2025-04-02] MEDS: PLAVIX 75 MG PO (10:20)
[2025-04-02] MEDS: ZETIA 10 MG PO (10:20)
[2025-04-02] MEDS: NSS (PRESERVATIVE FREE) 10 ML IV (10:20)
[2025-04-02] MEDS: ZESTRIL 40 MG PO (10:20)
[2025-04-02 12:29] LABS: APTT 66.8 Sec (23.4-35.0)
--- NOTE | 2025-04-02 13:13 | W.PN.HOSP.TC ---
Today's Communication/Plan
-
NPO after midnight.
Assessment / Plan
Assessment / Plan
A/P: Patient is a 75y M with PMH significant for extensive ASCVD who presents to ED complaining of chest pain.
1. NSTEMI / ACS
ASCVD
- follow closely for further evaluation and treatment.
- EKG with ST depressions/ T wave inversions V3-V6.
- Initial troponin = 2.08. Follow to peak.
- Continue IV heparin, NTG, DAPT, etc.
- Patient is unfortunately intolerant of statins.
- Supplemental O2, MSO4 if needed.
- Follow for any new / recurrent pain.
- Cardiology consultation appreciated. They recommend:
-Continue aspirin, plavix, heparin, beta-rayne, ACEI
-on zetia
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
-Echo
- Trend troponin to peak
- Serial EKGs
-prior CAB 2016
-NPO p MN for cath
2. Hypertensive Emergency
- BP elevation (170/100) with chest pain / EKG changes / etc.
- Continue usual outpatient med regimen.
- IV NTG as noted above and titrate for adequate BP control (SBP < 160).
- Adjust PO regimen as needed for adequate control.
3. GERD / PUD / Neil's Esophagus
- No acid suppression agents included in meds he listed in ED?
- PPI daily for now.
DVT Prophylaxis: On therapeutic heparin at present.
Code Status: Full
Anticipated Discharge: > 48 hours
Subjective/Interval History
-
Date of Service: April 02, 2025
Objective Data
-
Labs:
Laboratory Results
04/02/25 04/02/25 04/02/25
03:43 04:29 12:04
WBC 8.3
Hgb 12.9 L
Hct 36.9 L
Plt Count 243
APTT 32.8 66.8 H
Sodium 141
Potassium 4.0
Chloride 108 H
Carbon Dioxide 29
BUN 21 H
Creatinine 1.0
Glucose 103 H
Calcium 9.6
Total Bilirubin 1.0
AST 42
ALT 20
Alkaline Phosphatase 102
04/02/25 04/02/25
18:00 18:40
WBC
Hgb
Hct
Plt Count
APTT Cancelled Pending
Sodium
Potassium
Chloride
Carbon Dioxide
BUN
Creatinine
Glucose
Calcium
Total Bilirubin
AST
ALT
Alkaline Phosphatase
Vital Signs:
Vital Signs
Temp Pulse Resp BP Pulse Ox
97.7 F 76 16 159/105 97
04/02/25 11:25 04/02/25 11:00 04/02/25 11:25 04/02/25 11:00 04/02/25 11:25
I&O
04/01/25 04/02/25 04/03/25
06:59 06:59 06:59
Intake Total 240 / 240
Balance 240 / 240
[2025-04-02 19:01] LABS: APTT 57.7 Sec (23.4-35.0)
[2025-04-03] VITALS (26 sets, daily range): BP systolic 116–179; BP diastolic 77–117; BMI 20.3
--- NOTE | 2025-04-03 00:07 | PTCARENOTE ---
Pt rec'd at change of shift in bed watching tv. Heparin gtt adjusted to ptt 57.7. Heparin increased to 1100 unit/hr. Ntg gtt continued at 50 mcq. Pt with no c/o cp or h/a. Pt aware of npo status after mn for cath in am
[2025-04-03] MEDS: HEPARIN 25000 UNITS/250 ML IV (03:19)
[2025-04-03] MEDS: NITROGLYCERIN PREMIX 250 IV (03:19)
[2025-04-03 03:42] LABS: Hematocrit 33.7 % (39.0-52.0); Hemoglobin 11.8 g/dL (13.0-18.0); Mean Corpuscular Hgb 33.3 pg (27.0-31.0); Mean Corpuscular Volume 95.2 fL (80.0-94.0); Mean Platelet Volume 10.1 fL (7.4-10.4); Platelet Count 254 10^3/uL (130-400); Red Blood Cell Count 3.54 10^6/uL (4.70-6.10); Red Cell Dist. Width 13.1 % (11.5-14.5); White Blood Cell Count 8.1 10^3/uL (4.8-10.8)
--- NOTE | 2025-04-03 03:47 | PTCARENOTE ---
Pt pain free throughout the night. Remains npo for cath today
[2025-04-03 03:53] LABS: APTT 75.1 Sec (23.4-35.0)
[2025-04-03 04:16] LABS: Blood Urea Nitrogen 19 mg/dl (9-20); Calcium 8.8 mg/dl (8.4-10.2); Carbon Dioxide 27 mmol/L (22-30); Chloride 104 mmol/L (98-107); Estimated Creatinine Clearance 56 ml/min; Glucose 108 mg/dl (70-99); HDL Cholesterol 61 mg/dl; LDL Cholesterol, Calculated 124 mg/dl; Sodium 137 mmol/L (135-145); Total Cholesterol 198 mg/dl (50-199); Triglyceride 66 mg/dl (10-149); Very Low Density Lipoprotein 13 mg/dl (0-30); eGFR > 60.00
[2025-04-03] MEDS: PROTONIX IV 40 MG IV (08:22)
[2025-04-03] MEDS: ORETIC 25 MG PO (08:23)
[2025-04-03] MEDS: NSS (PRESERVATIVE FREE) 10 ML IV (08:23)
[2025-04-03] MEDS: ZETIA 10 MG PO (08:23)
[2025-04-03] MEDS: PLAVIX 75 MG PO (08:23)
[2025-04-03] MEDS: ZESTRIL 40 MG PO (08:23)
[2025-04-03] MEDS: LOW STRENGTH ASPIRIN 81 MG PO (08:23)
[2025-04-03] MEDS: FLUSH (NSS) 1 FLUSH IV (08:24)
--- NOTE | 2025-04-03 08:30 | PTCARENOTE ---
Received pt at change of shift resting in bed watching tv. SR on the monitor, HR in the 80's. Heparin gtt infusing at 1100 units/hr and nitro gtt infusing at 40 units/hr. pt denies any chest pain or SOB. pt reminded of bed rest status. Urinal
provided. Call keating within reach.
[2025-04-03 10:36] LABS: APTT 88.6 Sec (23.4-35.0)
--- NOTE | 2025-04-03 15:20 | W.PN.HOSP.TC ---
Today's Communication/Plan
-
hep ggt
nitro ggt
LHC
trend trops to peak
DAPT
Assessment / Plan
Assessment / Plan
A/P: Patient is a 75y M with PMH significant for extensive ASCVD who presents to ED complaining of chest pain.
# NSTEMI / ACS
#ASCVD
- follow closely for further evaluation and treatment.
- EKG with ST depressions/ T wave inversions V3-V6.
- Initial troponin = 2.08. Follow to peak.
- Continue IV heparin, NTG, DAPT, etc.
- Patient is unfortunately intolerant of statins.
- Supplemental O2, MSO4 if needed.
- Follow for any new / recurrent pain.
- Cardiology consultation appreciated. They recommend:
-Continue aspirin, plavix, heparin, beta-rayne, ACEI
-on zetia
-Nitro bank boss hanging, plan for catheterization tomorrow unless becomes emergent
-Echo
- Trend troponin to peak
- Serial EKGs
-prior 2016
-NPOfor cath
# Hypertensive Emergency
- BP elevation (170/100) with chest pain / EKG changes / etc.
- Continue usual outpatient med regimen.
- IV NTG as noted above and titrate for adequate BP control (SBP < 160).
- Adjust PO regimen as needed for adequate control.
# GERD / PUD / Neil's Esophagus
- No acid suppression agents included in meds he listed in ED?
- PPI daily for now.
DVT Prophylaxis: On therapeutic heparin at present.
Code Status: Full
Anticipated Discharge: > 48 hours
Subjective/Interval History
-
Date of Service: April 03, 2025
no acute events
Objective Data
-
Labs:
Laboratory Results
04/03/25 04/03/25 04/03/25
02:53 10:08 12:51
WBC 8.1 Cancelled
Hgb 11.8 L Cancelled
Hct 33.7 L Cancelled
Plt Count 254 Cancelled
APTT 75.1 H 88.6 H Cancelled
Sodium 137
Potassium 4.0
Chloride 104
Carbon Dioxide 27
BUN 19
Creatinine 1.0
Glucose 108 H
Calcium 8.8
Vital Signs:
Vital Signs
Temp Pulse Resp BP Pulse Ox
97.8 F 87 20 140/89 97
04/03/25 11:48 04/03/25 13:00 04/03/25 11:48 04/03/25 13:00 04/03/25 11:48
I&O
04/02/25 04/03/25 04/04/25
06:59 06:59 06:59
Intake Total 756.7 / 756.7
Output Total 800 / 800 700 / 700
Balance -43.3 / -43.3 -700 / -700
Review of Systems
-
History Source: Patient
All other systems: Not reviewed unless documented
Physical Exam
-
General: Comfortable
Respiratory: Non Labored Respirations; Negative Accessory Resp Muscle Use
Cardiac: Regular Rhythm (SR on monitor) and S1/S2; Negative Tachycardic
Neuro: AO x 3 and No Motor Deficits; Negative Slurred Speech or Facial Droop
Psych: Calm; Negative Confused
Data Reviewed
-
Labs: Labs Reviewed by me
--- NOTE | 2025-04-03 15:31 | CM ---
spoke to pt in room, he is pre vindep lives with his in a 2 story home with 1 step to enter. he denies any dc planning needs or dme's. plan is for dc to home when medically stable.
[2025-04-03 16:30] LABS: ACT-LR - POC 380 Seconds (116-155)
[2025-04-03 16:54] LABS: ACT-LR - POC 263 Seconds (116-155)
[2025-04-03 17:51] LABS: ACT-LR - POC 306 Seconds (116-155)
--- NOTE | 2025-04-03 17:59 | ITS.CL.ANGIO ---
Injection Specialist - Angioplasty
Angioplasty
Procedure Report:
CARDIAC CATHETERIZATION REPORT
Date of Procedure: 04/03/2025
Referring: Krystin Mcgarry M.D.
INDICATION: Known coronary artery disease, status post CABG (RAMOS to LAD, SVG to RPDA), non-ST elevation myocardial infarction.
PROCEDURE:
1. Left heart catheterization.
2. Coronary angiography.
3. Bypass angiography.
4. PTCA of lateral OM1.
5. Successful, though challenging PCI of OM1 proper.
A total of 130 minutes of procedural/moderate sedation was utilized. An independent medical terminologist was present to assist with and help manage the patient's level of consciousness and physiologic status.
ACCESS:
1. 6 Cymraes left radial artery using a modified Seldinger technique.
2. 7 Cymraes right common femoral artery using a modified Seldinger technique with a micropuncture kit under ultrasound guidance.
CATHETERS:
1. 5 Cymraes MERCEDES.
2. 5 Cymraes JL 4.
3. 5 Cymraes JR4.
4. 6 Cymraes multipurpose.
5. 7 Cymraes JL 4 guiding catheter.
6. 7 Cymraes AL-1 guiding catheter.
HEMODYNAMIC DATA
Weight (kg): 64.1
AO (s/d/x, mmHg): 142/80/108
LV (s/x mmHg): 145/10
LEFT VENTRICULOGRAPHY: Not performed.
CORONARY ANGIOGRAPHY
Dominance: Right.
Left Main: Normal size, bifurcating vessel. There is a 70% lesion in the ostium of the vessel with at least moderate calcification. There is no dampening on engagement.
LAD: Normal size vessel giving rise to at least 2 diagonals. The vessel is diffusely diseased throughout its entire course, normalizing in the distal aspect of its midsection then chronically occluded in its distal/apical margin. There are
multiple 80% and 90% lesions in the proximal and mid LAD.
Ramus: Congenitally absent.
Circumflex: Large size, nondominant vessel giving rise to 1 large obtuse marginal. The circumflex and proximal margin of the obtuse marginal are severely tortuous with two 180 degree turns leading into a bifurcation point into the large OM 1
proper and a lateral OM branch. There is underappreciated, calcific disease in the proximal circumflex. There is a culprit, Lyle 1, 1, 1 bifurcation lesion at the LAD mid OM as it bifurcates into the proper branch and lateral branch.
RCA: Large size, dominant vessel. The artery is chronically totally occluded at its origin.
BYPASS GRAFT ANGIOGRAPHY
RAMOS to D1: Normal size graft with end-to-side anastomosis to what appears to be the true terminal LAD. There is no evidence of stenosis or graft degeneration.
SVG to RPDA: Large size graft with end-to-side anastomosis to the mid RPDA. There are luminal irregularities in the RPDA itself. The RCA is backfilled to the crux.
INTERVENTION(S)
1. Successful PTCA of the 90% OM1 lateral lesion (Medtronic [place] 2.0 x 12 semicompliant balloon).
2. Successful PCI of the 90% OM1 proper lesion (Medtronic [place]cd[place]ough [place] 2.25 x 12 BLANCA, postdilated with a 2.25 NC balloon) with reduction in stenosis to 0% in the OM1 proper, but jailing and occluding the OM1 lateral.
Narrative:
The decision was made to proceed with percutaneous coronary intervention. The diagnostic catheter was removed over a wire and a 6Fr JL 4 guiding catheter was advanced to the aortic root and seated in the left main coronary artery. This guide was
chosen out of concern that the ostial left main coronary artery may require treatment and disengagement would be easier with a Kat catheter. Additional heparin was given and a Power Turn Flex wire was advanced into the OM1 proper with
microcatheter support. The quick cross microcatheter was withdrawn using a wire pinning technique. A BMW wire was advanced into OM1 lateral with microcatheter support. Again, the quick cross microcatheter was withdrawn using a wire pinning
technique. The Lyle 1, 1, 1 90% bifurcation lesion between OM1 proper and OM1 lateral lesion was predilated with a 2.0 x 12 semi-compliant balloon to 12 ayla in both branches. Given the severe tortuosity of the vessel, the decision was made to
proceed with a provisional stenting technique as delivery of multiple devices was not feasible. Given that the OM1 proper branch was the larger branch, the decision was made to stent this lesion after performing angioplasty of the sidebranch. The
semi-compliant balloon was removed and a Medtronic [place]cdonough [place] 2.25 x 12 drug-eluting stent was advanced over the Power Turn Flex wire. Unfortunately, the stent would not advance past the second 180 degree turn within the OM1. Any attempt to
advance the stent was met with disengagement of the guide and loss of wire position. The stent was withdrawn and a 6 Cymraes GuideLiner was advanced into the left main coronary artery and proximal circumflex over the 2.0 x 12 semicompliant balloon.
Unfortunately, the GuideLiner would not proceed beyond the proximal circumflex. We attempted to readvanced the balloon into the distal circumflex/OM1, but this was met with more loss of guide support. A fresh balloon was used without improvement.
Through the course of trying to deliver the balloon and stent, wire position was lost in the OM1 lateral branch. The BMW wire was withdrawn. Numerous further attempts were made to deliver the balloon with GuideLiner support including readvancing
with a microcatheter for better wire purchase. Ultimately, artery access was completely lost and equipment prolapse in the left ventricle.
At this time, we elected to reattempt with a supportive guide. The 7 Cymraes JL 4 was withdrawn and a 7 Cymraes AL-1 guiding catheter was advanced and seated in the ostium of the left main coronary artery. A whisper wire was advanced with
microcatheter support. With the microcatheter support and the support of the AL-1 catheter, the whisper wire was able to reenter OM1 proper. The microcatheter was withdrawn. A 2.0 x 12 semicompliant balloon was readvanced and the lesion was
dilated to 12 ayla again. The semicompliant balloon was withdrawn. The stent was readvanced.
Now, with dramatically improved guide support, we were able to slowly advance the stent into position in OM1 proper. Angiography confirmed stent placement would cover both the proximal vessel lesion and the distal vessel lesion.
The stent was deployed at 12 atmospheres. The stent balloon was removed. A 2.25 x 8 noncompliant balloon was advanced into the stent and the stent was postdilated to 12 atmospheres. Angiography was performed in orthogonal views, confirming good
stent expansion and an excellent angiographic result. The coronary wire was withdrawn and the guide was disengaged from the artery. The catheter was removed over a standard J-wire.
Closure Device: Vascular band for the left radial artery, 6 Cymraes Angio-Seal for the right common femoral artery.
Radiation (mGy): 735.15
DAP (cm2.Gy): 54.8074
Fluoroscopy time (minutes): 46.1
CONCLUSIONS
1. Right dominant circulation with chronic total occlusion of the RCA, a moderately calcified, 70% lesion in the ostium of the left main coronary artery, diffuse disease of the entire proximal and the proximal mid LAD (multiple 80% and 90% lesions)
with chronic total occlusion of the apical LAD, underappreciated, calcific disease in the proximal circumflex, a severely tortuous obtuse marginal leading to a Lyle 1, 1, 1 bifurcation lesion between OM1 and OM1 lateral, status post prior bypass
(RAMOS to terminal LAD, SVG 90% to mid RPDA).
2. Status post successful PTCA of the 90% OM1 lateral lesion, followed by successful PCI of the 90% OM1 proper lesion with reduction in the proper lesion to 0%, maintaining LUCY-3 flow though jailing and occluding the OM1 lateral.
3. Normal filling pressures (LVEDP = 10 mmHg at 64.1 kg).
RECOMMENDATIONS:
1. Expectant management after cardiac catheterization via Left radial approach.
2. Limited weight bearing On the left wrist for one week.
3. Dual antiplatelet therapy with aspirin and clopidogrel for at least 12 months, possibly longer and aspirin indefinitely.
4. Trend CK�MB to assess for periprocedural MN due to closure of OM1 lateral branch.
5. OMT/GDMT as hemodynamics to tolerate.
6. Continue aggressive secondary prevention with ezetimibe. Consider PCSK9 inhibitors if not cost prohibitive.
7. Referral to cardiac rehab.
Copy to: Krystin Mcgarry M.D., Owen Portillo D.O., Radames Lo M.D.
Mariano Quigley DO, FACC, FACP
[2025-04-03 20:13] LABS: Total CK 207 U/L (55-170)
[2025-04-03] MEDS: LOPRESSOR 5 MG IV (20:23)
[2025-04-03 20:34] LABS: CKMB 16.2 ng/ml (0.0-3.4)
[2025-04-03] MEDS: TUMS CHEWABLE TABLET 400 MG PO (20:35)
--- NOTE | 2025-04-03 23:01 | PTCARENOTE ---
Assumed care of patient at change of shift. Tele monitor showed SR w/ PVCs. Patient w/ HTN. SBP in the 160-170's at rest and DBP in the 100's. Patient denies any pain. Flores PARKER made aware and orders obtained for a one time dose of 5mg of IV
Lopressor.
At approx 20:17 while this RN was drawing up the medication patients HR increased to the 140's. Patient denied any palpitations or chest discomfort during this time. But does c/o indigestion and belching. Tums administered--see DEC for further
details. EKG obtained confirming Sinus tachycardia. IV Lopressor 5mg administered at 20:23. Around 20:26 patients HR went from Sinus tach to NSR. HR currently in the 80-90's at rest. EKG confirmed NSR. Dr. Gomez made aware and updated w/ EKG
findings via TT. No further orders were obtained from Dr. Gomez, but instructed RN to 'just observe'.
Patients BP remains elevated. Flores FORKLIFT DRIVER aware, and orders placed for PRN IV Lopressor w/ parameters. Patient aware of POC.
Right groin site intact, no hematoma present at this time. Left radial band removed at 21:50 w/out any complications. Dry dressing applied. Patient educated multiple times by RN about activity restrictions in regards to left radial site. Call keating
within reach.
[2025-04-04] VITALS (10 sets, daily range): BP systolic 95–149; BP diastolic 62–100
[2025-04-04 01:02] LABS: Total CK 513 U/L (55-170)
[2025-04-04 01:24] LABS: CKMB 69.4 ng/ml (0.0-3.4)
[2025-04-04 07:08] LABS: Blood Urea Nitrogen 20 mg/dl (9-20); Carbon Dioxide 24 mmol/L (22-30); Chloride 103 mmol/L (98-107); Estimated Creatinine Clearance 56 ml/min; Glucose 94 mg/dl (70-99); Potassium 4.3 mmol/L (3.5-5.1); Sodium 135 mmol/L (135-145); Total CK 969 U/L (55-170); eGFR > 60.00
--- NOTE | 2025-04-04 08:10 | W.PN.CD ---
Today's Communication / Plan
-
trend trop/ckmb
added coreg
echo ordered
Impression / Plan
-
CAD Non-STEMI s/p PCI to OM1
-Now s/p Cath where he lost OM1 lateral 2/2 tortuosity and jailing--> likely cause of yesterday ECG changes
-Continue aspirin, plavix, beta-rayne, ACEI
-He is statin intolerant, on zetia
-Echo ordered
- Trend troponin and CKMB to peak
- Serial EKGs
-prior CAB 2016
Hypertensive emergency:
- cont lisinopril
- added carvedilol
PAD - s/p lCEA 01/25/25 right CEA 05/2021.
- followed by Dr. Cochran as outpatient.
- continue ASA, Plavix, Zetia.
HLD - intolerant to statins.
-update lipid profile
- on Zetia with LDL 121 from 02/2024.
- Repatha prescribed by Dr. Lo but he cannot afford it.
- can look into Praluent or Leqvio as an outpatient.
h/o CVA
Physical Exam
Vital Signs/Labs
Vital Signs
Temp Pulse Resp BP Pulse Ox
98.4 F 89 16 143/100 97
04/04/25 07:00 04/04/25 07:00 04/04/25 07:00 04/04/25 03:18 04/04/25 07:00
04/03/25 04/04/25 04/05/25
06:59 06:59 06:59
Actual Weight 141 lb 5.061 oz
04/03/25 12:51
04/04/25 06:21
APTT Cancelled 04/03/25 12:51
Triglycerides 66 mg/dl (10-149) 04/03/25 02:53
LDL Cholesterol, Calc 124 mg/dl 04/03/25 02:53
VLDL Cholesterol, Calc 13 mg/dl (0-30) 04/03/25 02:53
HDL Cholesterol 61 mg/dl 04/03/25 02:53
LAB Results
04/02/25 04/02/25 04/02/25
03:43 05:50 10:12
Troponin I 2.080 H* 2.950 H* D 6.400 H* D
04/02/25 04/03/25 04/03/25
15:03 02:53 10:08
Troponin I 8.990 H* D 9.800 H* 9.390 H*
04/03/25 04/03/25
15:45 21:45
Troponin I Cancelled Cancelled
Physical Exam
Constitutional: No acute distress and Comfortable
EENT: Anicteric
Cardiovascular: Rhythm & rate is regular
Respiratory: Respiratory effort normal and Lungs clear to auscul.
GI: Soft
Neuro/Psych: AO x 3
Data Reviewed
-
Date of Service: April 04, 2025
Medical Decision Making: Reviewed Test Results
EKG: Tracing Personally Visualized and interpreted (sr)
Echo: Report Reviewed by me
Labs: Labs Reviewed by me
[2025-04-04] MEDS: PLAVIX 75 MG PO (09:38)
[2025-04-04] MEDS: ZESTRIL 40 MG PO (09:38)
[2025-04-04] MEDS: COREG 6.25 MG PO ×2 (09:39→21:22)
[2025-04-04] MEDS: ZETIA 10 MG PO (09:39)
[2025-04-04] MEDS: NSS (PRESERVATIVE FREE) 10 ML IV (09:39)
[2025-04-04] MEDS: LOW STRENGTH ASPIRIN 81 MG PO (09:39)
[2025-04-04] MEDS: ORETIC 25 MG PO (09:39)
[2025-04-04] MEDS: PROTONIX IV 40 MG IV (09:40)
--- NOTE | 2025-04-04 10:11 | PTCARENOTE ---
patient sleeping but easily awaken to take am medications. patient very soft spoken, man of few words. monitor shows NSR with occ PVC's, VSS. left radial dsg. D/I, wek distal pulses. right groin dsg. intact, distal pulse weak. patient has no
concerns at this time.
[2025-04-04 12:16] LABS: ACT-LR - POC > 397 Seconds (116-155)
[2025-04-04 13:24] LABS: Total CK 946 U/L (55-170)
--- NOTE | 2025-04-04 13:46 | PTCARENOTE ---
troponin 26.8 TT Genesis Bates [employer], no further orders.
--- NOTE | 2025-04-04 13:52 | PTCARENOTE ---
Addendum entered by Eli Christina RN 04/04/25 14:29:
CKMB and troponin ordered for 1800 and in am.
Original Note:
patient has been sleeping all day but opens eyes when entering room. no c/o CP, patient stated, 'I am depressed, I am not use to laying around, I miss my and dog.' talked with patient and offered emotional support.
--- NOTE | 2025-04-04 15:03 | W.PN.HOSP.TC ---
Today's Communication/Plan
-
bb
echo
dvt ppx
trend ckmb
Assessment / Plan
Assessment / Plan
A/P: Patient is a 75y M with PMH significant for extensive ASCVD who presents to ED complaining of chest pain.
# NSTEMI / ACS
#ASCVD
�Prior CABG 2016
- PCI to OM1
� Continue aspirin, Plavix, beta-rayne, DANNY inhibitor
� Statin intolerant, on Zetia
Follow-up echo
� Trend CK-MB to peak
# Hypertensive Emergency
- BP elevation (170/100) with chest pain / EKG changes / etc.
- Continue usual outpatient med regimen.
- IV NTG as noted above and titrate for adequate BP control (SBP < 160).
- Adjust PO regimen as needed for adequate control.
# GERD / PUD / Neil's Esophagus
- No acid suppression agents included in meds he listed in ED?
- PPI daily for now.
DVT Prophylaxis: On therapeutic heparin at present.
Code Status: Full
Anticipated Discharge: Within 24 hours
Subjective/Interval History
-
Date of Service: April 04, 2025
PCI to OM1 04/03
Objective Data
-
Labs:
Laboratory Results
04/04/25
06:21
Sodium 135
Potassium 4.3
Chloride 103
Carbon Dioxide 24
BUN 20
Creatinine 1.0
Glucose 94
Calcium 9.0
Vital Signs:
Vital Signs
Temp Pulse Resp BP Pulse Ox
98.0 F 86 18 115/76 98
04/04/25 11:15 04/04/25 11:15 04/04/25 11:15 04/04/25 11:15 04/04/25 11:15
I&O
04/03/25 04/04/25 04/05/25
06:59 06:59 06:59
Intake Total 756.7 / 756.7 624 / 624
Output Total 800 / 800 1675 / 1875 200 / 200
Balance -43.3 / -43.3 -1051 / -1251 -200 / -200
Review of Systems
-
History Source: Patient
All other systems: Not reviewed unless documented
Data Reviewed
-
Labs: Labs Reviewed by me
--- NOTE | 2025-04-04 19:00 | PTCARENOTE ---
patient is depressed, is at bedside. patients sister in law mentioned that patient takes zoloft for his depression, was not sure of dosage, so she will call the night nurse for dosage so it can be ordered.
[2025-04-04 19:09] LABS: Total CK 832 U/L (55-170)
[2025-04-04 19:33] LABS: CKMB 67.7 ng/ml (0.0-3.4)
[2025-04-04] MEDS: HEPARIN 5000 UNITS SC (19:51)
[2025-04-04] MEDS: ZOLOFT 100 MG PO (21:22)
--- NOTE | 2025-04-05 00:55 | PTCARENOTE ---
Clarified home dose of Zoloft. Med rec updated. Km PARKER made aware orders obtained for one time dose of 100mg Zoloft.
Tele remains SR w/ occasional PVCs. Pt w/ soft BPs. Denies any dizziness. Laying in bed. Denies any pain or SOB. Left radial dressing intact w/ ecchymosis. Reminded pt of activity restrictions. Right groin dressing intact w/ b/l DP weak on
palpation. Call keating within reach.
[2025-04-05 02:59] VITALS: BP 116/79
[2025-04-05 03:36] LABS: Hematocrit 36.7 % (39.0-52.0); Hemoglobin 13.3 g/dL (13.0-18.0); Mean Corp Hgb Conc. 36.2 g/dL (33.0-37.0); Mean Corpuscular Hgb 34.4 pg (27.0-31.0); Mean Corpuscular Volume 94.8 fL (80.0-94.0); Mean Platelet Volume 10.1 fL (7.4-10.4); Platelet Count 272 10^3/uL (130-400); Red Blood Cell Count 3.87 10^6/uL (4.70-6.10); Red Cell Dist. Width 12.9 % (11.5-14.5); White Blood Cell Count 9.9 10^3/uL (4.8-10.8)
[2025-04-05 04:01] LABS: ALT (SGPT) 38 U/L (0-50); AST (SGOT) 160 U/L (17-59); Alkaline Phosphatase 93 U/L (38-126); Blood Urea Nitrogen 35 mg/dl (9-20); Calcium 9.3 mg/dl (8.4-10.2); Carbon Dioxide 24 mmol/L (22-30); Chloride 102 mmol/L (98-107); Estimated Creatinine Clearance 37 ml/min; Glucose 153 mg/dl (70-99); Potassium 4.1 mmol/L (3.5-5.1); Sodium 135 mmol/L (135-145); Total Bilirubin 1.6 mg/dl (0.2-1.3); Total CK 649 U/L (55-170); Total Protein 7.2 g/dl (6.3-8.2); eGFR 47.65
[2025-04-05 04:29] LABS: CKMB 31.1 ng/ml (0.0-3.4)
[2025-04-05 07:53] VITALS: BP 103/71
--- NOTE | 2025-04-05 08:11 | W.PN.CD ---
Today's Communication / Plan
-
Hold lisinopril/HCTZ.
UA (with electrolytes).
Consider renal US.
Case management consult (brewer of dapagliflozin, alirocumab).
Impression / Plan
-
Impression/Plan: 75 y/o male iwth HTN, HLD, prior CVA, statin intolerance (PCSK9i cost prohibitive) and CAD s/p prior CABG (RAMOS to LAD, SVG to RPDA) admitted with NSTEMI, now s/p PCI to 90% OM1 bifurcation lesion complicated by the loss of OM1
lateral and PPMI.
#CAD/Non-STEMI/PPMI
-Acute, threat to life.
-Coronary angiography showed patent RAMOS to VERY distal LAD, patent SVG to RPDA and an extremely tortuous OM1 with 90% Lyle 1, 1, 1 lesion in the OM proper and a lateral branch.
-s/p provisional PCI to 90% Lyle 1, 1, 1 OM1/OM1 lateral lesion (Medtronic [place] 2.25 x 12 BLANCA) with reduction in OM1 proper stenosis to 0%, maintaining LUCY III flow but jailing and occluding OM1 lateral.
-CK-MB peaked at 110. Troponin peaked at 31.4. Consistent with PPMI.
-TTE shows mid to apical anterolateral/inferero lateral and inferior hypokinesis, LVEF 40-45%.
-Continue aspirin, clopidogrel, lisinopril. Carvedilol started yesterday.
-Continue ezetimibe given statin intolerance.
#Ischemic Cardiomyopathy
-New diagnosis.
-No evidence of decompensated heart failure.
-GDMT as hemodynamics will tolerate.
-Diuretic: None.
-Beta rayne: Carvedilol.
-ACEI/ARB/ARNi: Lisinopril 40 mg daily. Hold today due to CUONG.
-MRA: None.
-SGLT2i: Brewer dapagliflozin 10 mg daily. Do not start in light of CUONG.
-ICD: Not currently indicated.
#Hypertension
-Acute, presented as emergency, improved.
-Continue carvedilol.
-Hold lisinopril due to CUONG.
#CUONG
-Creatinine 1.5 form 1.0.
-Check UA.
-Weight not recorded since 04/03/2025.
-Check daily weights.
-Check UA.
-No UOP recorded.
-DDx includes obstruction, intrinsic (JAXON vs. AIN) and pre-renal (BUN/Cr ratio suggestive).
-Hold HCTZ, lisinopril.
#PAD/MICHELL
-Chronic, stable.
-S/P LCEA 01/25/25, RCEA 05/2021.
-Followed by Dr. Cochran as outpatient.
-Continue secondary prevention with DAPT, ezetimibe.
#HLD/statin intolerance
-Chronic, stable.
-Total cholesterol = 198, LDL = 124, HDL = 61, Triglycerides = 66.
-Continue ezetimibe.
-Evolocumab is cost prohibitive.
-Case management to brewer alirocumab vs. inclisiran vs. bempedoic acid.
-Goal LDL < 55.
#History of CVA
-Chronic, stable.
-Secondary prevention as above.
Subjective/Interval History:
Creatinine up to 1.5 this morning.
BP's stable.
No UOP or weights recorded.
Feels well.
DATA:
Cardiac Catheterization/PCI, 04/03/2025:
CONCLUSIONS
1. Right dominant circulation with chronic total occlusion of the RCA, a moderately calcified, 70% lesion in the ostium of the left main coronary artery, diffuse disease of the entire proximal and the proximal mid LAD (multiple 80% and 90% lesions)
with chronic total occlusion of the apical LAD, underappreciated, calcific disease in the proximal circumflex, a severely tortuous obtuse marginal leading to a Lyle 1, 1, 1 bifurcation lesion between OM1 and OM1 lateral, status post prior bypass
(RAMOS to terminal LAD, SVG 90% to mid RPDA).
2. Status post successful PTCA of the 90% OM1 lateral lesion, followed by successful PCI of the 90% OM1 proper lesion with reduction in the proper lesion to 0%, maintaining LUCY-3 flow though jailing and occluding the OM1 lateral.
3. Normal filling pressures (LVEDP = 10 mmHg at 64.1 kg).
TTE, 04/04/2025:
CONCLUSIONS
Normal left ventricular size with mildly reduced systolic function. LVEF 40-
45%.
Hypokinesis of the mid to apical anterolateral, inferolateral, and inferior
fay.
No significant valvular disease.
Compared to prior echocardiogram in September 2024, LVEF has decreased from 65-
70% to 40-45%. Wall motion abnormalities are new.
Physical Exam
Vital Signs/Labs
Vital Signs
Temp Pulse Resp BP Pulse Ox
36.7 C 68 18 116/79 97
04/05/25 07:52 04/05/25 06:00 04/05/25 07:52 04/05/25 02:59 04/05/25 07:52
04/03/25 04/04/25 04/05/25
11:59 11:59 11:59
Actual Weight 64.1 kg
04/05/25 03:05
04/05/25 03:05
APTT Cancelled 04/03/25 12:51
Triglycerides 66 mg/dl (10-149) 04/03/25 02:53
LDL Cholesterol, Calc 124 mg/dl 04/03/25 02:53
VLDL Cholesterol, Calc 13 mg/dl (0-30) 04/03/25 02:53
HDL Cholesterol 61 mg/dl 04/03/25 02:53
LAB Results
04/02/25 04/02/25 04/03/25
10:12 15:03 02:53
Troponin I 6.400 H* D 8.990 H* D 9.800 H*
04/03/25 04/03/25 04/03/25
10:08 15:45 21:45
Troponin I 9.390 H* Cancelled Cancelled
04/04/25 04/04/25 04/05/25
12:54 18:44 03:05
Troponin I 26.800 H* 31.400 H* 28.900 H*
Physical Exam
Constitutional: No acute distress and Comfortable
EENT: Anicteric and Moist mucous membranes
Cardiovascular: Rhythm & rate is regular, Pedal edema is absent, JVD pressure is normal, S1S2 is normal and Murmur/rub/gallop absent
Respiratory: Respiratory effort normal, Lungs clear to auscul., Wheeze Absent, Crackles Absent and Rhonchi Absent
GI: Soft, Distention absent, Flat, Non tender and Normal bowel sounds
Neuro/Psych: AO x 3
Other: Cath Site (Left radial and right common femoral access sites are C/D/I.)
Data Reviewed
-
Date of Service: April 05, 2025
Medical Decision Making: Reviewed Test Results, Independent Historian Assessment and Test Interpretation
EKG: Tracing Personally Visualized and interpreted and Report Reviewed by me
Echo: Tracing Personally Visualized and interpreted and Report Reviewed by me
X-Ray/CT/US/MRI/NUC/PET: Image Personally Visualized and interpreted and Report Reviewed by me
Medical Tests (PFT, Pathology etc): Image Personally Visualized and interpreted, Report Reviewed by me, Discussed with Patient and Discussed with Family
Labs: Labs Reviewed by me
Old Records: Reviewed
[2025-04-05] MEDS: NSS (PRESERVATIVE FREE) 10 ML IV (09:03)
[2025-04-05] MEDS: PROTONIX IV 40 MG IV (09:03)
[2025-04-05] MEDS: ZETIA 10 MG PO (09:04)
[2025-04-05] MEDS: PLAVIX 75 MG PO (09:04)
[2025-04-05] MEDS: LOW STRENGTH ASPIRIN 81 MG PO (09:04)
[2025-04-05] MEDS: HEPARIN 5000 UNITS SC ×2 (09:04→20:11)
[2025-04-05] MEDS: ORETIC PO (09:05)
[2025-04-05] MEDS: ZESTRIL PO (09:05)
[2025-04-05] MEDS: COREG 6.25 MG PO ×2 (09:05→20:11)
[2025-04-05 11:48] VITALS: BP 103/63
[2025-04-05] MEDS: ZOLOFT 100 MG PO (13:25)
--- NOTE | 2025-04-05 14:48 | W.PN.HOSP.TC ---
Today's Communication/Plan
-
trend ckmb, troponins
GDMT as per Cards; Hold ACEi with CUONG
Monitor renal function
Assessment / Plan
Assessment / Plan
A/P: Patient is a 75y M with PMH significant for extensive ASCVD who presents to ED complaining of chest pain.
# NSTEMI / ACS
#ASCVD
�Prior CABG 2016
- PCI to OM1
� Continue aspirin, Plavix, beta-rayne, DANNY inhibitor
� Statin intolerant, on Zetia
Follow-up echo, EF 40 to 45%; hypokinesis of the mid to apical anterolateral, inferolateral and inferior fay
� Trend CK-MB to peak
#New onset HFrEF
� Continue Coreg
�Hold DANNY inhibitor with CUONG
� SGLT2i along with GDMT as per cardiology
#CUONG
� Suspect post left heart cath, contrast induced CUONG
� Monitor with resuscitation
� Hold nephrotoxic agents
# Hypertensive Emergency
- BP elevation (170/100) with chest pain / EKG changes / etc.
- Continue usual outpatient med regimen.
- IV NTG as noted above and titrate for adequate BP control (SBP < 160).
- Adjust PO regimen as needed for adequate control.
# GERD / PUD / Neil's Esophagus
- No acid suppression agents included in meds he listed in ED?
- PPI daily for now.
DVT Prophylaxis: hsq
Code Status: Full
Anticipated Discharge: 24 - 48 hours
Subjective/Interval History
-
Date of Service: April 05, 2025
No acute events overnight. Noted to have CUONG today. Troponin jumped yesterday, no chest pain.
Objective Data
-
Labs:
Laboratory Results
04/05/25
03:05
WBC 9.9
Hgb 13.3
Hct 36.7 L
Plt Count 272
Sodium 135
Potassium 4.1
Chloride 102
Carbon Dioxide 24
BUN 35 H
Creatinine 1.5 H
Glucose 153 H
Calcium 9.3
Total Bilirubin 1.6 H
AST 160 H
ALT 38
Alkaline Phosphatase 93
Vital Signs:
Vital Signs
Temp Pulse Resp BP Pulse Ox
97.7 F 59 18 103/71 97
04/05/25 11:49 04/05/25 11:00 04/05/25 11:49 04/05/25 09:05 04/05/25 11:49
I&O
04/04/25 04/05/25 04/06/25
06:59 06:59 06:59
Intake Total 624 / 624 120 / 120
Output Total 1675 / 1875 200 / 200
Balance -1051 / -1251 -80 / -80
Review of Systems
-
History Source: Patient
All other systems: Not reviewed unless documented
Data Reviewed
-
Diagnostic Radiology: Report Reviewed by me
Medical Tests (Nuc Med, Echo etc): Report Reviewed by me
Labs: Labs Reviewed by me
--- NOTE | 2025-04-05 15:27 | CM ---
CM following for DC planning needs.
Attempted to meet w/ patient at bedside but he was asleep.
Reviewed initial assessment, patient resides w/ spouse in a private 3 STH w/ 1 TANG. Functionally, patient is indep. at baseline.
Goal is for home, no antic. needs.
Will cont. to follow.
[2025-04-05 16:05] VITALS: BP 106/69
--- NOTE | 2025-04-05 16:33 | PTCARENOTE ---
Discussed all nursing measures prior to implementation. Discussed pt's plan of care w/ pt's friend, Elma, w/ pt's consent. Discussed Cr of 1.5. Will monitor.
[2025-04-05 18:47] VITALS: BP 106/70
[2025-04-05 22:38] VITALS: BP 100/65
--- NOTE | 2025-04-05 23:44 | PTCARENOTE ---
Pt rec'd at change of shift with son and postmaster relief at bedside. no c/o pain. Pt made aware of need for clean urine specimen. Pt asked to call nursing next time he needs to void to insure clean catch. Left radial site ecchymotic with DDI. Right
femoral site with DDI. Remains sinus on telemetry with no c/o cp.
[2025-04-06] VITALS (12 sets, daily range): BP systolic 70–120; BP diastolic 45–76; PULSE 60–64; BMI 19.5
--- NOTE | 2025-04-06 01:42 | PTCARENOTE ---
At approx 0105 pt called nursing to bedside for assist in going to bathroom to obtain urine sample. Pct was at bedside when pt stood at bedside but was swaying. Pct called for nurse assistance. Pt was sitting on side of bed, head slumped slightly
forward. Placed back to supine position. At first pt's right arm appeared almost flaccid however after further exam pt had full strength. Neuro check normal, LUANA. Oriented x 3
Pt stated he just felt weak. Pt did not want to try using urinal in lying position. Pt stated he didn't have to go now and would call when he gets the urge again. b/p 106/75
--- NOTE | 2025-04-06 04:40 | PTCARENOTE ---
At 0435 pt awoken for vs and lab work. Attempted to have pt stand at bedside for us C&s . Pt stood upright on his own but after a min or two of trying to void pt became limp. placed back to bed with pt alert again once horizontal. Pt stated he felt
'disconnected' denied having narrow vision or dizziness. b/p once supine 112/76 sinus 60
--- NOTE | 2025-04-06 04:49 | PTCARENOTE ---
Pt bladder scanned for 110 cc
[2025-04-06 05:36] LABS: Hematocrit 33.4 % (39.0-52.0); Hemoglobin 11.8 g/dL (13.0-18.0); Mean Corp Hgb Conc. 35.3 g/dL (33.0-37.0); Mean Corpuscular Hgb 33.5 pg (27.0-31.0); Mean Corpuscular Volume 94.9 fL (80.0-94.0); Mean Platelet Volume 10.3 fL (7.4-10.4); Platelet Count 268 10^3/uL (130-400); Red Blood Cell Count 3.52 10^6/uL (4.70-6.10); Red Cell Dist. Width 12.7 % (11.5-14.5); White Blood Cell Count 8.5 10^3/uL (4.8-10.8)
[2025-04-06 06:00] LABS: ALT (SGPT) 46 U/L (0-50); AST (SGOT) 97 U/L (17-59); Albumin 3.6 g/dl (3.5-5.0); Alkaline Phosphatase 86 U/L (38-126); Blood Urea Nitrogen 50 mg/dl (9-20); Carbon Dioxide 26 mmol/L (22-30); Chloride 101 mmol/L (98-107); Estimated Creatinine Clearance 32 ml/min; Glucose 105 mg/dl (70-99); Potassium 4.1 mmol/L (3.5-5.1); Sodium 135 mmol/L (135-145); Total Bilirubin 1.1 mg/dl (0.2-1.3); Total Protein 6.7 g/dl (6.3-8.2); eGFR 41.01
--- NOTE | 2025-04-06 08:56 | W.PN.CD ---
Today's Communication / Plan
-
UA/ULytes.
LR 500 mL bolus.
Encourage PO intake (including gatorade).
Ambulate.
Impression / Plan
-
Impression/Plan: 75 y/o male iwth HTN, HLD, prior CVA, statin intolerance (PCSK9i cost prohibitive) and CAD s/p prior CABG (RAMOS to LAD, SVG to RPDA) admitted with NSTEMI, now s/p PCI to 90% OM1 bifurcation lesion complicated by the loss of OM1
lateral and PPMI.
#CAD/Non-STEMI/PPMI
-Acute, threat to life.
-Coronary angiography showed patent RAMOS to VERY distal LAD, patent SVG to RPDA and an extremely tortuous OM1 with 90% Lyle 1, 1, 1 lesion in the OM proper and a lateral branch.
-s/p provisional PCI to 90% Lyle 1, 1, 1 OM1/OM1 lateral lesion ([employer] [place] 2.25 x 12 BLANCA) with reduction in OM1 proper stenosis to 0%, maintaining LUCY III flow but jailing and occluding OM1 lateral.
-CK-MB peaked at 110. Troponin peaked at 31.4. Consistent with PPMI.
-TTE shows mid to apical anterolateral/inferolateral and inferior hypokinesis, LVEF 40-45%.
-Continue aspirin, clopidogrel, carvedilol and ezetimibe given statin intolerance.
#Ischemic Cardiomyopathy
-New diagnosis.
-No evidence of decompensated heart failure.
-GDMT as hemodynamics will tolerate.
-Diuretic: None.
-Beta rayne: Carvedilol.
-ACEI/ARB/ARNi: On hold due to CUONG.
-MRA: None.
-SGLT2i: Brewer dapagliflozin 10 mg daily. Do not start in light of CUONG.
-ICD: Not currently indicated.
#Hypertension
-Acute, presented as emergency, improved.
-Continue carvedilol.
-Hold lisinopril due to CUONG.
#CUONG
-Creatinine 1.7 from 1.0.
-Check UA.
-Weight has fallen from prior, and his LVEDP was normal at the prior weight.
-Check daily weights.
-Check UA/ULytes.
-This is almost certainly pre-renal. Bolus LR 500 mL and re-evaluate.
-Continue to hold nephrotoxic agents.
#PAD/MICHELL
-Chronic, stable.
-S/P LCEA 01/25/25, RCEA 05/2021.
-Followed by Dr. Cochran as outpatient.
-Continue secondary prevention with DAPT, ezetimibe.
#HLD/statin intolerance
-Chronic, stable.
-Total cholesterol = 198, LDL = 124, HDL = 61, Triglycerides = 66.
-Continue ezetimibe.
-Evolocumab is cost prohibitive.
-Case management to brewer alirocumab vs. inclisiran vs. bempedoic acid.
-Goal LDL < 55.
#History of CVA
-Chronic, stable.
-Secondary prevention as above.
Subjective/Interval History:
Weight is down 2.5 kg from 04/03/2025.
Attempts at standing to urinate have lead to orthostatic hypotension.
Creatinine up to 1.7.
He feels depressed that he is not home, helping to care for his (suffering from dementia).
He reports that he has not been taking in adequate PO (not completing meals).
DATA:
Cardiac Catheterization/PCI, 04/03/2025:
CONCLUSIONS
1. Right dominant circulation with chronic total occlusion of the RCA, a moderately calcified, 70% lesion in the ostium of the left main coronary artery, diffuse disease of the entire proximal and the proximal mid LAD (multiple 80% and 90% lesions)
with chronic total occlusion of the apical LAD, underappreciated, calcific disease in the proximal circumflex, a severely tortuous obtuse marginal leading to a Lyle 1, 1, 1 bifurcation lesion between OM1 and OM1 lateral, status post prior bypass
(RAMOS to terminal LAD, SVG 90% to mid RPDA).
2. Status post successful PTCA of the 90% OM1 lateral lesion, followed by successful PCI of the 90% OM1 proper lesion with reduction in the proper lesion to 0%, maintaining LUCY-3 flow though jailing and occluding the OM1 lateral.
3. Normal filling pressures (LVEDP = 10 mmHg at 64.1 kg).
TTE, 04/04/2025:
CONCLUSIONS
Normal left ventricular size with mildly reduced systolic function. LVEF 40-
45%.
Hypokinesis of the mid to apical anterolateral, inferolateral, and inferior
fay.
No significant valvular disease.
Compared to prior echocardiogram in September 2024, LVEF has decreased from 65-
70% to 40-45%. Wall motion abnormalities are new.
Physical Exam
Vital Signs/Labs
Vital Signs
Temp Pulse Resp BP Pulse Ox
36.5 C 58 20 112/76 93
04/06/25 08:00 04/06/25 06:00 04/06/25 04:21 04/06/25 04:37 04/06/25 04:21
04/04/25 04/05/25 04/06/25
11:59 11:59 11:59
Actual Weight 61.6 kg
04/06/25 04:29
04/06/25 04:29
APTT Cancelled 04/03/25 12:51
Triglycerides 66 mg/dl (10-149) 04/03/25 02:53
LDL Cholesterol, Calc 124 mg/dl 04/03/25 02:53
VLDL Cholesterol, Calc 13 mg/dl (0-30) 04/03/25 02:53
HDL Cholesterol 61 mg/dl 04/03/25 02:53
LAB Results
04/03/25 04/03/25 04/03/25
10:08 15:45 21:45
Troponin I 9.390 H* Cancelled Cancelled
04/04/25 04/04/25 04/05/25
12:54 18:44 03:05
Troponin I 26.800 H* 31.400 H* 28.900 H*
Physical Exam
Constitutional: No acute distress and Comfortable
EENT: Anicteric and Moist mucous membranes
Cardiovascular: Rhythm & rate is regular, Pedal edema is absent, JVD pressure is normal, S1S2 is normal and Murmur/rub/gallop absent
Respiratory: Respiratory effort normal, Lungs clear to auscul., Wheeze Absent, Crackles Absent and Rhonchi Absent
GI: Soft, Distention absent, Flat, Non tender and Normal bowel sounds
Neuro/Psych: AO x 3
Other: Cath Site (Left radial/right femoral access sites are C/D/I.)
Data Reviewed
-
Date of Service: April 06, 2025
Medical Decision Making: Reviewed Test Results, Tests Ordered, Independent Historian Assessment and Test Interpretation
EKG: Tracing Personally Visualized and interpreted and Report Reviewed by me
Echo: Tracing Personally Visualized and interpreted and Report Reviewed by me
Medical Tests (PFT, Pathology etc): Image Personally Visualized and interpreted, Report Reviewed by me, Discussed with Physician, Discussed with Patient and Discussed with Family
Labs: Labs Reviewed by me
Old Records: Reviewed
[2025-04-06] MEDS: HEPARIN 5000 UNITS SC ×2 (09:39→20:12)
[2025-04-06] MEDS: PLAVIX 75 MG PO (09:40)
[2025-04-06] MEDS: LOW STRENGTH ASPIRIN 81 MG PO (09:40)
[2025-04-06] MEDS: ZETIA 10 MG PO (09:45)
[2025-04-06] MEDS: ZOLOFT 100 MG PO (09:45)
--- NOTE | 2025-04-06 10:55 | CM ---
Priced the following medications thru patient's RX plan- [facility]- [phone] (ID [id number])
Farxiga- approx. 243.54/mo until he meets annual deductible of 590. Once deductible is met, cost will be 25% of total drug cost.
Alirocumab- requires prior authorization. They cannot estimate co pay until this is completed. PA needs to be called to [phone] or online via covermymeds. TT to to Cards Attg. to update.
[2025-04-06] MEDS: COREG PO (11:09)
[2025-04-06] MEDS: PROTONIX 40 MG PO (12:13)
[2025-04-06] MEDS: PROTONIX IV IV (12:22)
[2025-04-06] MEDS: NSS (PRESERVATIVE FREE) IV (12:22)
[2025-04-06] MEDS: LR 500 IV (12:29)
--- NOTE | 2025-04-06 12:30 | PN.CDI ---
CDI
- -
CDI:
Physician Documentation Request
Admit Date: 04/02/25 07:34
Dear Doctor Brenda,
Patient admitted for NSTEMI.
04/05 Cardiology PN: 'Ischemic Cardiomyopathy
-New diagnosis.
-No evidence of decompensated heart failure.'
04/05 Hospitalist PN: 'New onset HFrEF
� Continue Coreg
�Hold DANNY inhibitor with CUONG
� SGLT2i along with GDMT as per cardiology'
Based on the above, could you clarify in the progress notes, the appropriate diagnosis, if significant, that supports the above abnormalities and additional evaluation, monitoring and/or treatment rendered:
Ischemic Cardiomyopathy
HFrEF
Ischemic Cardiomyopathy and HFrEF
Other
Use of terms such as suspected, likely, concern for, or probable (associated with a specific diagnosis that is being evaluated, monitored, or treated as if it exists) are acceptable and can be coded in the inpatient setting, when documented at the
time of discharge.
Thank you,
Britni Petty RN, BSN
CDI Specialist
Available via [employer] text
Please use your independent medical judgment in providing your response.
--- NOTE | 2025-04-06 12:42 | CM ---
Addendum entered by ZEENAT Peralta 04/06/25 14:13:
[facility] able to accept.
Plan is for home w/ [facility].
Original Note:
CM following for DC planning needs.
Met w/ patient at bedside. Pt. reports that he is feeling well but frustrated at prolonged hospitalization. 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 He reports that she is able to function rather independently and he has been checking in on her.
His neighbor has also been providing assistance.
We discussed estimated cost of Farxiga and I encouraged him to speak with regarding financial concerns.
We discussed DC plans. 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 I offered pt. [facility] @ DC and he is agreeable.
Will submit referral to VN and await response.
Goal is for home w/ [facility], if accepted.
[2025-04-06 13:03] LABS: Urine Albumin Negative (Neg - Trace); Urine Bilirubin Negative (Negative); Urine Character Clear (Clear); Urine Color Yellow; Urine Glucose Negative (Negative); Urine Ketone Negative (Negative); Urine Leukocyte Negative (Negative); Urine Nitrite Negative (Negative); Urine Occult Blood Negative (Negative); Urine Urobilinogen 1+ (Neg - 1+)
[2025-04-06 13:34] LABS: Urine Sodium 25 mmol/L (30-90)
--- NOTE | 2025-04-06 13:35 | W.PN.HOSP.TC ---
Today's Communication/Plan
-
Follow-up urine LR bolus today
PVR
If unresolving, can consider renal/bladder ultrasound
Continue to hold nephrotoxic agents
Trend troponin as per cardiology if needed
Assessment / Plan
Assessment / Plan
A/P: Patient is a 75y M with PMH significant for extensive ASCVD who presents to ED complaining of chest pain.
# NSTEMI / ACS
#ASCVD
�Prior CABG 2016
- PCI to OM1
� Continue aspirin, Plavix, beta-rayne, DANNY inhibitor
� Statin intolerant, on Zetia
Follow-up echo, EF 40 to 45%; hypokinesis of the mid to apical anterolateral, inferolateral and inferior fay
� Trend CK-MB to peak
#New onset HFrEF
� Continue Coreg
�Hold DANNY inhibitor with CUONG
� SGLT2i along with GDMT as per cardiology; Holding nephrotoxic agents at this time
#CUONG
� Suspect post left heart cath, contrast induced CUONG
-500cc LR bolus
-F/u urine Na, Creatine
� Monitor with resuscitation
� Hold nephrotoxic agents
-can consider US if unresolving
-PVR
#Transaminitis
� Improving
� Monitor
# Hypertensive Emergency
- BP elevation (170/100) with chest pain / EKG changes / etc.
- Continue usual outpatient med regimen.
- IV NTG as noted above and titrate for adequate BP control (SBP < 160).
- Adjust PO regimen as needed for adequate control.
# GERD / PUD / Neil's Esophagus
- PPI daily for now.
DVT Prophylaxis: hsq
Code Status: Full
Anticipated Discharge: > 48 hours
Subjective/Interval History
-
Date of Service: April 06, 2025
worsening CUONG
Objective Data
-
Labs:
Laboratory Results
04/06/25
04:29
WBC 8.5
Hgb 11.8 L
Hct 33.4 L
Plt Count 268
Sodium 135
Potassium 4.1
Chloride 101
Carbon Dioxide 26
BUN 50 H
Creatinine 1.7 H
Glucose 105 H
Calcium 9.0
Total Bilirubin 1.1
AST 97 H
ALT 46
Alkaline Phosphatase 86
Vital Signs:
Vital Signs
Temp Pulse Resp BP Pulse Ox
98.4 F 58 16 112/76 98
04/06/25 11:41 04/06/25 06:00 04/06/25 11:41 04/06/25 04:37 04/06/25 11:41
I&O
04/05/25 04/06/25 04/07/25
06:59 06:59 06:59
Intake Total 120 / 120
Output Total 200 / 200
Balance -80 / -80
Review of Systems
-
History Source: Patient
All other systems: Not reviewed unless documented
Physical Exam
-
General: Comfortable
Respiratory: Non Labored Respirations; Negative Accessory Resp Muscle Use
Cardiac: Regular Rhythm (SR on monitor) and S1/S2; Negative Tachycardic
Neuro: AO x 3 and No Motor Deficits; Negative Slurred Speech or Facial Droop
Psych: Calm; Negative Confused
Data Reviewed
-
Diagnostic Radiology: Report Reviewed by me
Medical Tests (Nuc Med, Echo etc): Report Reviewed by me
Labs: Labs Reviewed by me
--- NOTE | 2025-04-06 18:00 | PTCARENOTE ---
Pt received this am with no c/o of any pain or sob. Orthostatic bp's completed this am. Standing bp 70/45. Pt denied any dizziness and no neuro changes. Dr. Quigley and Hospitalist notified. 500ml of LR infused as ordered. Pt stated he felt much
better after the fluids. OOB to the chair and ambulated with the nurse in the hallway. Gait steady and stated he felt well.
[2025-04-06] MEDS: COREG 6.25 MG PO (20:12)
[2025-04-07 05:02] VITALS: BP 96/65
[2025-04-07 05:34] LABS: Hematocrit 31.7 % (39.0-52.0); Hemoglobin 11.6 g/dL (13.0-18.0); Mean Corp Hgb Conc. 36.6 g/dL (33.0-37.0); Mean Corpuscular Hgb 34.3 pg (27.0-31.0); Mean Corpuscular Volume 93.8 fL (80.0-94.0); Mean Platelet Volume 10.1 fL (7.4-10.4); Platelet Count 276 10^3/uL (130-400); Red Blood Cell Count 3.38 10^6/uL (4.70-6.10); Red Cell Dist. Width 12.5 % (11.5-14.5); White Blood Cell Count 7.7 10^3/uL (4.8-10.8)
[2025-04-07 06:04] LABS: ALT (SGPT) 30 U/L (0-50); AST (SGOT) 43 U/L (17-59); Albumin 3.4 g/dl (3.5-5.0); Alkaline Phosphatase 75 U/L (38-126); Calcium 8.9 mg/dl (8.4-10.2); Carbon Dioxide 29 mmol/L (22-30); Chloride 102 mmol/L (98-107); Estimated Creatinine Clearance 41 ml/min; Glucose 101 mg/dl (70-99); Potassium 3.7 mmol/L (3.5-5.1); Sodium 135 mmol/L (135-145); Total Protein 6.5 g/dl (6.3-8.2); eGFR 56.58
[2025-04-07 06:13] LABS: Blood Urea Nitrogen 41 mg/dl (9-20); Total Bilirubin 0.7 mg/dl (0.2-1.3)
[2025-04-07 07:18] VITALS: BP 111/71
--- NOTE | 2025-04-07 07:29 | W.PN.CD ---
Today's Communication / Plan
-
Lisinopril 2.5 mg daily.
Discuss cost of dapagliflozin 10 mg daily.
Outpatient alirocumab vs. bempedoic acid vs. inclisiran.
BMP in one week.
Furosemide 40 mg PO PRN for 3-5 lb weight gain.
Discharge.
Impression / Plan
-
Impression/Plan: 75 y/o male iw HTN, HLD, prior CVA, statin intolerance (PCSK9i cost prohibitive) and CAD s/p prior CABG (RAMOS to LAD, SVG to RPDA) admitted with NSTEMI, now s/p PCI to 90% OM1 bifurcation lesion complicated by the loss of OM1
lateral and PPMI.
#CAD/Non-STEMI/PPMI
-Acute, threat to life.
-Coronary angiography showed patent RAMOS to VERY distal LAD, patent SVG to RPDA and an extremely tortuous OM1 with 90% Lyle 1, 1, 1 lesion in the OM proper and a lateral branch.
-s/p provisional PCI to 90% Lyle 1, 1, 1 OM1/OM1 lateral lesion ([employer] [place] 2.25 x 12 BLANCA) with reduction in OM1 proper stenosis to 0%, maintaining LUCY III flow but jailing and occluding OM1 lateral.
-CK-MB peaked at 110. Troponin peaked at 31.4. Consistent with PPMI.
-TTE shows mid to apical anterolateral/inferolateral and inferior hypokinesis, LVEF 40-45%.
-Continue aspirin, clopidogrel, carvedilol and ezetimibe given statin intolerance.
#Ischemic Cardiomyopathy
-New diagnosis.
-No evidence of decompensated heart failure.
-GDMT as hemodynamics will tolerate.
-Diuretic: Start furosemide 40 mg PO PRN weight gain of 3-5 lbs.
-Beta rayne: Carvedilol.
-ACEI/ARB/ARNi: Restart lisinopril 2.5 mg daily. BMP in one week.
-MRA: None.
-SGLT2i: Start dapagliflozin 10 mg daily.
-ICD: Not currently indicated.
#Hypertension
-Acute, presented as emergency, improved.
-Continue carvedilol.
-Restarting lisinopril 2.5 mg daily for [employer] as BP is currently normotensive on carvedilol monotherapy.
-D/C HCTZ.
#CUONG
-Creatinine improved to 1.3.
-Resolving with hydration.
-Encouraged adequate hydration.
-BMP in one week.
#PAD/MICHELL
-Chronic, stable.
-S/P LCEA 01/25/25, RCEA 05/2021.
-Followed by Dr. Cochran as outpatient.
-Continue secondary prevention with DAPT, ezetimibe.
#HLD/statin intolerance
-Chronic, stable.
-Total cholesterol = 198, LDL = 124, HDL = 61, Triglycerides = 66.
-Continue ezetimibe.
-Outpatient consideration of alirocumab vs. bempedoic acid vs. inclisiran.
-Goal LDL < 55.
#History of CVA
-Chronic, stable.
-Secondary prevention as above.
Subjective/Interval History:
500 mL of LR given yesterday with improvement in orthostatics and general feeling.
BUN/Cr has improved.
Feels well.
DATA:
Cardiac Catheterization/PCI, 04/03/2025:
CONCLUSIONS
1. Right dominant circulation with chronic total occlusion of the RCA, a moderately calcified, 70% lesion in the ostium of the left main coronary artery, diffuse disease of the entire proximal and the proximal mid LAD (multiple 80% and 90% lesions)
with chronic total occlusion of the apical LAD, underappreciated, calcific disease in the proximal circumflex, a severely tortuous obtuse marginal leading to a Lyle 1, 1, 1 bifurcation lesion between OM1 and OM1 lateral, status post prior bypass
(RAMOS to terminal LAD, SVG 90% to mid RPDA).
2. Status post successful PTCA of the 90% OM1 lateral lesion, followed by successful PCI of the 90% OM1 proper lesion with reduction in the proper lesion to 0%, maintaining LUCY-3 flow though jailing and occluding the OM1 lateral.
3. Normal filling pressures (LVEDP = 10 mmHg at 64.1 kg).
TTE, 04/04/2025:
CONCLUSIONS
Normal left ventricular size with mildly reduced systolic function. LVEF 40-
45%.
Hypokinesis of the mid to apical anterolateral, inferolateral, and inferior
fay.
No significant valvular disease.
Compared to prior echocardiogram in September 2024, LVEF has decreased from 65-
70% to 40-45%. Wall motion abnormalities are new.
Physical Exam
Vital Signs/Labs
Vital Signs
Temp Pulse Resp BP Pulse Ox
36.7 C 67 20 111/65 98
04/07/25 05:03 04/07/25 05:00 04/07/25 05:03 04/06/25 22:52 04/07/25 05:03
04/05/25 04/06/25 04/07/25
11:59 11:59 11:59
Actual Weight 61.6 kg
04/07/25 05:10
04/07/25 05:10
APTT Cancelled 04/03/25 12:51
Triglycerides 66 mg/dl (10-149) 04/03/25 02:53
LDL Cholesterol, Calc 124 mg/dl 04/03/25 02:53
VLDL Cholesterol, Calc 13 mg/dl (0-30) 04/03/25 02:53
HDL Cholesterol 61 mg/dl 04/03/25 02:53
LAB Results
04/04/25 04/04/25 04/05/25
12:54 18:44 03:05
Troponin I 26.800 H* 31.400 H* 28.900 H*
Physical Exam
Constitutional: No acute distress and Comfortable
EENT: Anicteric and Moist mucous membranes
Cardiovascular: Rhythm & rate is regular, Pedal edema is absent, JVD pressure is normal, S1S2 is normal and Murmur/rub/gallop absent
Respiratory: Respiratory effort normal, Lungs clear to auscul., Wheeze Absent, Crackles Absent and Rhonchi Absent
GI: Soft, Distention absent, Flat, Non tender and Normal bowel sounds
Neuro/Psych: AO x 3
Data Reviewed
-
Date of Service: April 07, 2025
Medical Decision Making: Reviewed Test Results, Independent Historian Assessment and Test Interpretation
EKG: Tracing Personally Visualized and interpreted and Report Reviewed by me
Echo: Tracing Personally Visualized and interpreted and Report Reviewed by me
X-Ray/CT/US/MRI/NUC/PET: Image Personally Visualized and interpreted and Report Reviewed by me
Medical Tests (PFT, Pathology etc): Image Personally Visualized and interpreted and Report Reviewed by me
Labs: Labs Reviewed by me
Old Records: Reviewed
[2025-04-07] MEDS: PLAVIX 75 MG PO (08:39)
[2025-04-07] MEDS: ZOLOFT 100 MG PO (08:40)
[2025-04-07] MEDS: ZETIA 10 MG PO (08:40)
[2025-04-07] MEDS: PROTONIX 40 MG PO (08:40)
[2025-04-07] MEDS: COREG 6.25 MG PO (08:40)
[2025-04-07] MEDS: LOW STRENGTH ASPIRIN 81 MG PO (08:41)
[2025-04-07] MEDS: HEPARIN 5000 UNITS SC (08:41)
[2025-04-07] MEDS: ZESTRIL 2.5 MG PO (08:49)
[2025-04-07] MEDS: FARXIGA 10 MG PO (08:49)
--- NOTE | 2025-04-07 10:43 | PTCARENOTE ---
Pt received this am with no c/o of any pain, sob or lightheadedness. Pt ambulated in the hallway with the nurse. Pt states he feels ok but weaker than usual. SB to SR, rate in the 50's to 60's. Right rad and femoral cath sites open to air and WNL.
--- NOTE | 2025-04-07 11:19 | CM ---
CM following for DC planning needs.
Met w/ patient at bedside. Pt. is hopeful for DC today and states that he has a ride.
Reviewed DC plan for home w/ VN. Referral made to [facility], accepted.
Plan is for home w/ [facility]
--- NOTE | 2025-04-07 11:19 | VNURNOTE ---
Home Health Liaison met with patient at bedside to discuss [facility] nurse/therapy, visits, schedule and homebound status. Patient is agreeable and understands that visits at home will be 2-3 x per week to assess and teach medical management.
Patient is aware that [facility] will contact them for start of care in 1-2 days after discharge from .
[facility] referral accepted in [facility].
[2025-04-07 11:21] VITALS: BP 109/67
--- NOTE | 2025-04-07 13:12 | W.PN.HOSP.TC ---
Addendum entered and electronically signed by Juan Manuel Gutierrez MD 04/07/25 15:43:
[id number]
Addendum entered and electronically signed by Juan Manuel Gutierrez MD 04/07/25 15:18:
Ischemic Cardiomyopathy
Underweight
Original Note:
Today's Communication/Plan
-
DAPT
Lisinopril, dapagliflozin on discharge
Follow-up BMP in 1 week
Lasix as needed for weight gain of 3 to 5 pounds
F/u PCP and Cardiology outpatient
Assessment / Plan
Assessment / Plan
A/P: Patient is a 75y M with PMH significant for extensive ASCVD who presents to ED complaining of chest pain.
# NSTEMI / ACS
#ASCVD
�Prior CABG 2016
- PCI to OM1
� Continue aspirin, Plavix, beta-rayne, DANNY inhibitor
� Statin intolerant, on Zetia
Follow-up echo, EF 40 to 45%; hypokinesis of the mid to apical anterolateral, inferolateral and inferior fay
� Trend CK-MB to peak
#New onset HFrEF
� Continue Coreg
� DANNY inhibitor
� SGLT2i
#CUONG
� Suspect post left heart cath, contrast induced CUONG
-500cc LR bolus
Resolved
Lisinopril, dapagliflozin on discharge
Follow-up BMP in 1 week
Lasix as needed for weight gain of 3 to 5 pounds
#Transaminitis
� Improving
� Monitor
# Hypertensive Emergency
See plan above
# GERD / PUD / Neil's Esophagus
DVT Prophylaxis: hsq
Code Status: Full
More than 30 minutes spent in discharge including
Final examination of the patient
Summarizing hospital stay
Instructions for continuing care to all relevant caregivers
Preparation of discharge records, prescriptions, and referral forms
Total time spent (in minutes): 36
Anticipated Discharge: Today
Subjective/Interval History
-
Date of Service: April 07, 2025
No acute events, renal function improving
Objective Data
-
Labs:
Laboratory Results
04/07/25
05:10
WBC 7.7
Hgb 11.6 L
Hct 31.7 L
Plt Count 276
Sodium 135
Potassium 3.7
Chloride 102
Carbon Dioxide 29
BUN 41 H
Creatinine 1.3
Glucose 101 H
Calcium 8.9
Total Bilirubin 0.7
AST 43
ALT 30
Alkaline Phosphatase 75
Vital Signs:
Vital Signs
Temp Pulse Resp BP Pulse Ox
97.8 F 61 16 109/67 99
04/07/25 11:28 04/07/25 11:21 04/07/25 11:28 04/07/25 11:21 04/07/25 11:28
I&O
04/06/25 04/07/25 04/08/25
06:59 06:59 06:59
Intake Total 480 / 480
Output Total 300 / 300
Balance 180 / 180
Review of Systems
-
History Source: Patient
All other systems: Not reviewed unless documented
Data Reviewed
-
Diagnostic Radiology: Report Reviewed by me
Medical Tests (Nuc Med, Echo etc): Report Reviewed by me
Labs: Labs Reviewed by me
--- NOTE | 2025-04-07 13:15 | W.DS.TRANS ---
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
-
Discharge Instructions:
Discharge Diagnosis/Procedures NSTEMI, s/p angioplasty and stent to Left
Circumflex/Obtuse marginal arteries
CUONG
Diet Low Cholesterol,Low Fat
Blood Work cbc and bmp in 1 week with pcp
Other Services Cardiac Rehab
Specialty Instructions Weigh Daily
Instructions:
Stand-Alone Forms: DC Instructions- Cath/EP Lab
Changes to Home Medications: Yes
Discharge Medications:
DC Medications w/original date entered in [facility]
ezetimibe 10 mg tablet (Zetia) 10 mg PO DAILY High Cholesterol 01/07/23
aspirin 81 mg chewable tablet 81 mg PO DAILY Blood Clot Prevention/Tx 04/02/25
clopidogrel 75 mg tablet 75 mg PO DAILY Blood Clot Prevention/Tx 04/02/25
sertraline 100 mg tablet (Zoloft) 100 mg PO DAILY 04/04/25
carvedilol 6.25 mg tablet 6.25 mg PO BID 30 days #60 tabs 04/07/25
dapagliflozin propanediol 10 mg tablet 10 mg PO DAILY 30 days #30 tabs 04/07/25
furosemide 40 mg tablet (Lasix) 40 mg PO .daily prn PRN for 3-5 lb weight gain. #30 tabs 04/07/25
lisinopril 2.5 mg tablet 2.5 mg PO DAILY 30 days #30 tabs 04/07/25
Home Medication Changes
carvedilol 6.25 mg tablet 6.25 mg PO BID 30 days #60 tabs 04/07/25
dapagliflozin propanediol 10 mg tablet 10 mg PO DAILY 30 days #30 tabs 04/07/25
furosemide 40 mg tablet (Lasix) 40 mg PO .daily prn PRN for 3-5 lb weight gain. #30 tabs 04/07/25
lisinopril 2.5 mg tablet 2.5 mg PO DAILY 30 days #30 tabs 04/07/25
Pending Results: No
--- NOTE | 2025-04-07 13:35 | PN.CDI ---
CDI
- -
CDI:
Physician Documentation Request
Admit Date: 04/02/25 07:34
Dear Doctor Brenda,
Patient admitted for NSTEMI.
Please review the following and provide your response in the progress notes.
Clinical Indicators:
Height: 5' 10'
Weight: 135 lbs
BMI:19.5
If possible, please provide an associated diagnosis related to the abnormal BMI, such as:
Underweight
Cachectic
BMI is not significant
Other
BMI < or = to 19.9
Underweight
Weight Loss
Cachectic
Anorexia
Use of terms such as suspected, likely, concern for, or probable (associated with a specific diagnosis that is being evaluated, monitored, or treated as if it exists) are acceptable and can be coded in the inpatient setting, when documented at the
time of discharge.
Thank you,
Britni Petty RN, BSN
CDI Specialist
Available via [employer] text
Please use your independent medical judgment in providing your response.
--- NOTE | 2025-04-07 15:13 | PTCARENOTE ---
Pt discharged to home with a friend. Discharge instructions given and reviewed with good understanding and all questions answered. Cath sites remain WNL.
== END 2025-04-07 15:17 | disposition home health service (06) | DRG 322 ==
LOC: IVU 07:34
PROVIDERS: Internal Medicine; Internal Medicine Cardiovascular Disease; Nurse Practitioner; Nurse Practitioner Gerontology; ADMITTING PHYSICIAN Hospitalist; ATTENDING PHYSICIAN Internal Medicine; EMERGENCY PHYSICIAN Emergency Medicine; FAMILY PHYSICIAN Family Medicine; OTHER PHYSICIAN Internal Medicine Cardiovascular Disease
PROC: B2121ZZ Fluoroscopy of Single Coronary Artery Bypass Graft using Low Osmolar Contrast (ICD-10-PCS; 2025-04-03)
PROC: B2181ZZ Fluoroscopy of Left Internal Mammary Bypass Graft using Low Osmolar Contrast (ICD-10-PCS; 2025-04-03)
PROC: 027034Z Dilation of Coronary Artery, One Artery with Drug-eluting Intraluminal Device, Percutaneous Approach (ICD-10-PCS; 2025-04-03)
PROC: 4A023N7 Measurement of Cardiac Sampling and Pressure, Left Heart, Percutaneous Approach (ICD-10-PCS; 2025-04-03)
PROC: B2111ZZ Fluoroscopy of Multiple Coronary Arteries using Low Osmolar Contrast (ICD-10-PCS; 2025-04-03)
DX: I21.4 Non-ST elevation (NSTEMI) myocardial infarction (principal); I16.1 Hypertensive emergency; N17.9 Acute kidney failure, unspecified; Z68.1 Body mass index [BMI] 19.9 or less, adult; I50.22 Chronic systolic (congestive) heart failure; I25.10 Atherosclerotic heart disease of native coronary artery without angina pectoris; K21.9 Gastro-esophageal reflux disease without esophagitis; I65.23 Occlusion and stenosis of bilateral carotid arteries; F32.A Depression, unspecified; F41.9 Anxiety disorder, unspecified; K22.70 Barrett's esophagus without dysplasia; E78.00 Pure hypercholesterolemia, unspecified; I73.9 Peripheral vascular disease, unspecified; I25.5 Ischemic cardiomyopathy; I11.0 Hypertensive heart disease with heart failure; R63.6 Underweight; K27.9 Peptic ulcer, site unspecified, unspecified as acute or chronic, without hemorrhage or perforation; G89.29 Other chronic pain; Z79.02 Long term (current) use of antithrombotics/antiplatelets; Z79.82 Long term (current) use of aspirin; Z79.899 Other long term (current) drug therapy; Z82.49 Family history of ischemic heart disease and other diseases of the circulatory system; Z86.73 Personal history of transient ischemic attack (TIA), and cerebral infarction without residual deficits; Z87.891 Personal history of nicotine dependence; Z95.1 Presence of aortocoronary bypass graft
CPT/HCPCS: 71045; 80048; 80053; 80061; 81003; 82550; 82553; 82570; 83615; 83690; 84300; 84484; 85025; 85027; 85347; 85730; 87070; 93005; 93306; 93459; 96374; 96375; 99291; 99292; C1725; C1760; C1769; C1874; C1887; C1894; C9600; Q9967

== ENCOUNTER 2025-05-01 10:06 | Outpatient (RCR) | payer MEDICARE, OTHER, SELFPAY | END 2025-05-01 23:59 | disposition home or self-care (01) | LOC: CRHB 10:06 | PROVIDERS: ATTENDING PHYSICIAN Internal Medicine Cardiovascular Disease | DX: I25.10 Atherosclerotic heart disease of native coronary artery without angina pectoris (principal); Z95.5 Presence of coronary angioplasty implant and graft; I25.2 Old myocardial infarction | CPT/HCPCS: G0422; G0423 ==

== ENCOUNTER 2025-05-31 09:40 | Outpatient (RCR) | payer MEDICARE, OTHER, SELFPAY | END 2025-05-31 23:59 | disposition home or self-care (01) | LOC: CRHB 09:40 | PROVIDERS: ATTENDING PHYSICIAN Internal Medicine Cardiovascular Disease | DX: I25.10 Atherosclerotic heart disease of native coronary artery without angina pectoris (principal); Z95.5 Presence of coronary angioplasty implant and graft; I25.2 Old myocardial infarction; I50.22 Chronic systolic (congestive) heart failure; I11.0 Hypertensive heart disease with heart failure; E78.5 Hyperlipidemia, unspecified; Z95.1 Presence of aortocoronary bypass graft | CPT/HCPCS: G0422; G0423 ==

== ENCOUNTER → 2025-06-08 08:08 | Outpatient (REF) | payer MEDICARE, OTHER, SELFPAY | LOC: MRI 3T 08:08 | PROVIDERS: ATTENDING PHYSICIAN Psychiatry & Neurology Neurology; FAMILY PHYSICIAN Family Medicine | DX: I63.9 Cerebral infarction, unspecified (principal) | CPT/HCPCS: 70551 ==

== ENCOUNTER 2025-06-30 09:48 | Outpatient (RCR) | payer MEDICARE, OTHER, SELFPAY | END 2025-06-30 23:59 | disposition home or self-care (01) | LOC: CRHB 09:48 | PROVIDERS: ATTENDING PHYSICIAN Internal Medicine Cardiovascular Disease | DX: I25.10 Atherosclerotic heart disease of native coronary artery without angina pectoris (principal); Z95.5 Presence of coronary angioplasty implant and graft; I25.2 Old myocardial infarction; I50.22 Chronic systolic (congestive) heart failure | CPT/HCPCS: G0422; G0423 ==

== ENCOUNTER → 2025-07-04 11:19 | Outpatient (REF) | payer MEDICARE, OTHER, SELFPAY | LOC: HWRCS 11:19 | PROVIDERS: ATTENDING PHYSICIAN Nurse Practitioner; FAMILY PHYSICIAN Family Medicine | DX: I25.5 Ischemic cardiomyopathy (principal) | CPT/HCPCS: 93306 ==

== ENCOUNTER 2025-07-31 10:10 | Outpatient (RCR) | payer MEDICARE, OTHER, SELFPAY ==
[2025-07-06 10:18] LABS: HDL Cholesterol 65 mg/dl; LDL Cholesterol, Calculated 50 mg/dl; Very Low Density Lipoprotein 14 mg/dl (0-30)
== END 2025-07-31 23:59 | disposition home or self-care (01) ==
LOC: CRHB 10:10
PROVIDERS: ATTENDING PHYSICIAN Internal Medicine Cardiovascular Disease; FAMILY PHYSICIAN Family Medicine
DX: I25.10 Atherosclerotic heart disease of native coronary artery without angina pectoris (principal); I25.2 Old myocardial infarction; Z95.5 Presence of coronary angioplasty implant and graft
CPT/HCPCS: 36415; 80061; G0422; G0423

== ENCOUNTER 2025-08-02 09:19 | Outpatient (RCR) | payer MEDICARE, OTHER, SELFPAY | END 2025-08-02 23:59 | disposition home or self-care (01) | LOC: CRHB 09:19 | PROVIDERS: ATTENDING PHYSICIAN Internal Medicine Cardiovascular Disease; FAMILY PHYSICIAN Family Medicine | DX: I25.10 Atherosclerotic heart disease of native coronary artery without angina pectoris (principal); I25.2 Old myocardial infarction; Z95.5 Presence of coronary angioplasty implant and graft; I21.4 Non-ST elevation (NSTEMI) myocardial infarction | CPT/HCPCS: G0422; G0423 ==

== ENCOUNTER → 2025-09-07 09:41 | Outpatient (REF) | payer MEDICARE, OTHER, SELFPAY | LOC: RST 09:41 | PROVIDERS: ATTENDING PHYSICIAN Otolaryngology; FAMILY PHYSICIAN Family Medicine | DX: R13.19 Other dysphagia (principal) | CPT/HCPCS: 74230; 92611 ==